=== PATIENT | male | born 1955 | race Caucasian/White ===

== ENCOUNTER → 2017-11-06 16:40 | Outpatient (CLI) | payer BC, SELFPAY ==
[2017-11-06 17:12] LABS: Basophils % 0.6 % (0.1-2.0); Eosinophils # 0.1 K/mm3 (0.0-0.4); Eosinophils % 1.9 % (0.1-12.0); Hematocrit 48.2 % (42.0-52.0); Hemoglobin 16.2 g/dL (14.1-18.0); Lymphocytes # 1.4 K/mm3 (0.7-4.5); Lymphocytes % 22.6 K/mm3 (10-50); Mean Corpuscular HGB Conc 33.5 g/dL (31.8-35.4); Mean Corpuscular Volume 89.4 fl (80-94); Mean Platelet Volume 7.7 fl (7.4-10.4); Monocytes # 0.4 K/mm3 (0.1-1.0); Monocytes % 6.4 % (1.7-9.3); Neutrophils # 4.4 K/mm3 (1.8-7.8); Neutrophils % 68.5 % (37.0-80.0); Platelet Count 196 K/mm3 (142-424); Red Blood Count 5.39 M/mm3 (4.60-6.20); Red Cell Distribution Width 13.2 % (11.5-17.5); White Blood Count 6.4 K/mm3 (4.8-10.8)
[2017-11-06 19:24] LABS: Alanine Aminotransferase 27 U/L (12-78); Albumin Level 3.7 gm/dL (3.4-5.0); Albumin/Globulin Ratio 1.1 (1.1-1.8); Alkaline Phosphatase 65 U/L (46-116); Anion Gap 14.3 mEq/L (5-15); Aspartate Amino Transferase 20 U/L (15-37); Bilirubin,Total 0.4 mg/dL (0.2-1.0); Blood Urea Nitrogen 24 mg/dL (7-18); Carbon Dioxide 25 mmol/L (21.0-32.0); Chloride 105 mmol/L (98-107); Creatinine,Serum 0.78 mg/dL (0.70-1.30); Estimated Glomerular Filt Rate 100 ml/min (>60); GFR (African American) 121 ML/MIN (>60); Globulin 3.3 gm/dl (1.3-3.2); Glucose 122 mg/dL (74-106); Potassium 4.3 mmoL/L (3.5-5.1); Sodium 140 mmol/L (136-145)
[2017-11-09 04:23] LABS: CEA 2.5 ng/mL (0.0-4.7)
== END ==
PROVIDERS: Visit Provider Internal Medicine
DX: C18.9 Malignant neoplasm of colon, unspecified (principal)
CPT/HCPCS: 36415; 80053; 82378; 85025

== ENCOUNTER → 2017-11-07 10:20 | Outpatient (CLI) | payer BC, SELFPAY ==
--- NOTE | 2017-11-07 10:25 | CT_ITS ---
CT abdomen pelvis w con CLINICAL INDICATION: Follow-up: Cancer, evaluate for metastasis ITS.REASON: COLON CA ORDERING PHYSICIAN: Marcus Sims MD PATIENT AGE: 62 years COMPARISON: 04/23/2017 TECHNIQUE: Axial images obtained with sagittal and coronal reformats. All CT scans at the facility use one or more dose reduction, viz: automated exposure control; ma/kV adjustment per patient size (including targeted exams where dose is matched to indication; i.e. head); or iterative reconstruction technique. PROCEDURE: Oral Contrast: Redicat IV Contrast: 75 mL's of Isovue-370 performed in conjunction with the chest CT. FINDINGS: There is a tiny isodensity in the right hepatic lobe inferiorly and laterally at 2 to 3 mm unchanged. Liver is otherwise unremarkable. The spleen, adrenal glands, pancreas, gallbladder, and kidneys have an unremarkable appearance. No evidence of overt peritoneal adenopathy. No intra-abdominal mass or adenopathy. No evidence of appendicitis intestinal obstruction or free air or diverticulitis. There is mild amount retained colonic feces. Postsurgical changes are present at the rectosigmoid junction with no obvious soft tissue mass in this region. The jejunum appears thickened. While this may be due to nondistention, enteritis is also a consideration. Please correlate clinically. No acute bony anomalies. No pelvic mass abnormal fluid collection or focal inflammatory change. Prostate calcifications are noted. IMPRESSION: 1. No convincing evidence of metastatic disease. 2. Thickening versus nondistention of the jejunum. Enteritis is a consideration
--- NOTE | 2017-11-07 10:25 | CT_ITS ---
CT chest w con HISTORY: Follow-up cancer of the colon, evaluate for metastasis ITS.REASON: COLON CA ORDERING PHYSICIAN: Marcus Sims MD PATIENT AGE: 62 years TECHNIQUE: Axial images obtained following the administration of 75 mL of Isovue 370 . Sagittal, and coronal reformatted images are also generated and reviewed. All CT scans at the facility use one or more dose reduction, viz: automated exposure control; ma/kV adjustment per patient size (including targeted exams where dose is matched to indication; i.e. head); or iterative reconstruction technique. COMPARISON: 04/23/2012 FINDINGS: There are mildly enlarged mediastinal lymph nodes once again noted overall not significantly changed. Normal heart size. No evidence of pericardial effusion. No hilar adenopathy. 3 mm subpleural nodular opacity right upper lobe unchanged. There are 2 nodular densities in the right middle lobe at 2 and 3 mm unchanged a 6 mm nodules present in the superior segment of the right lower lobe stable since 06/26/2016 and may represent a granuloma and may contain a small central focus of calcium. No new nodules. No lobar consolidation or collapse. No effusion. No bony destructive process. IMPRESSION: 1. Overall stable CT appearance of the chest. 2. No change mild mediastinal adenopathy 3. No convincing evidence of metastatic disease
== END ==
PROVIDERS: Family Provider Internal Medicine Adolescent Medicine; PCP Internal Medicine Adolescent Medicine; Visit Provider Internal Medicine
DX: C18.9 Malignant neoplasm of colon, unspecified (principal); Z03.89 Encounter for observation for other suspected diseases and conditions ruled out
CPT/HCPCS: 71260; 74177; Q9967

== ENCOUNTER → 2018-01-09 12:37 | Outpatient (CLI) | payer BC, SELFPAY ==
[2018-01-09 12:54] LABS: Basophils # 0.1 K/mm3 (0-0.2); Basophils % 0.8 % (0.1-2.0); Eosinophils # 0.1 K/mm3 (0.0-0.4); Eosinophils % 2.1 % (0.1-12.0); Hematocrit 51.4 % (42.0-52.0); Hemoglobin 16.3 g/dL (14.1-18.0); Lymphocytes # 1.2 K/mm3 (0.7-4.5); Lymphocytes % 20.5 K/mm3 (10-50); Mean Corpuscular HGB Conc 31.6 g/dL (31.8-35.4); Mean Corpuscular Hemoglobin 28.2 pg (27.0-31.2); Mean Corpuscular Volume 89.1 fl (80-94); Mean Platelet Volume 7.3 fl (7.4-10.4); Monocytes # 0.4 K/mm3 (0.1-1.0); Monocytes % 6.8 % (1.7-9.3); Neutrophils % 69.7 % (37.0-80.0); Platelet Count 253 K/mm3 (142-424); Red Blood Count 5.78 M/mm3 (4.60-6.20); Red Cell Distribution Width 13.2 % (11.5-17.5); White Blood Count 5.7 K/mm3 (4.8-10.8)
[2018-01-09 13:33] LABS: Alanine Aminotransferase 25 U/L (12-78); Albumin Level 3.6 gm/dL (3.4-5.0); Alkaline Phosphatase 73 U/L (46-116); Anion Gap 11.5 mEq/L (5-15); Aspartate Amino Transferase 20 U/L (15-37); Bilirubin,Total 0.3 mg/dL (0.2-1.0); Blood Urea Nitrogen 22 mg/dL (7-18); Calcium 8.9 mg/dL (8.5-10.1); Carbon Dioxide 27 mmol/L (21.0-32.0); Chloride 105 mmol/L (98-107); Chol/HDL Ratio 4.4 (1-3.5); Cholesterol 193 mg/dL (140-200); Creatinine,Serum 0.89 mg/dL (0.70-1.30); Estimated Glomerular Filt Rate 86 ml/min (>60); Free Thyroxine Index 2.7 ug/dL (5.93-13.13); GFR (African American) 104 ML/MIN (>60); Globulin 3.6 gm/dl (1.3-3.2); Glucose 108 mg/dL (74-106); HDL Cholesterol 44 mg/dL (27-67); LDL Cholesterol 126 mg/dL (0-130); Potassium 4.5 mmoL/L (3.5-5.1); Sodium 139 mmol/L (136-145); T4 (Thyroxine) 7.8 ug/dl (4.7-13.3); Thyroid Stimulating Hormone 1.34 uIU/ml (0.358-3.740); Total Protein,Serum 7.2 gm/dL (6.4-8.2); Triglycerides 114 mg/dL (30-200); Triiodothryronine (T3) Uptake 34 % (31-39); VLDL Cholesterol 23 mg/dL (0-40)
[2018-01-10 08:21] LABS: Vitamin B12 423 pg/mL (232-1245)
[2018-01-10 18:05] LABS: Rapid Plasma Reagin Ab Titer Non Reactive (NonRea<1:1); Vitamin D 25 Hydroxy 19.5 ng/mL (30.0-100.0)
== END ==
PROVIDERS: Visit Provider Internal Medicine Adolescent Medicine
DX: Z00.00 Encounter for general adult medical examination without abnormal findings (principal); G60.9 Hereditary and idiopathic neuropathy, unspecified
CPT/HCPCS: 36415; 80053; 80061; 82607; 82652; 84436; 84443; 84479; 85025; 86592

== ENCOUNTER → 2018-05-25 10:05 | Outpatient (CLI) | payer MEDICARE, BC, SELFPAY ==
[2018-05-25 10:27] LABS: Basophils # 0.1 K/mm3 (0-0.2); Basophils % 0.6 % (0.1-2.0); Eosinophils # 0.1 K/mm3 (0.0-0.4); Eosinophils % 1.4 % (0.1-12.0); Hematocrit 51.7 % (42.0-52.0); Hemoglobin 16.6 g/dL (14.1-18.0); Lymphocytes # 1.3 K/mm3 (0.7-4.5); Lymphocytes % 13.2 % (10-50); Mean Corpuscular HGB Conc 32.1 g/dL (31.8-35.4); Mean Corpuscular Hemoglobin 28.8 pg (27.0-31.2); Mean Corpuscular Volume 89.7 fl (80-94); Mean Platelet Volume 7.6 fl (7.4-10.4); Monocytes # 0.6 K/mm3 (0.1-1.0); Monocytes % 6.1 % (1.7-9.3); Neutrophils # 7.5 K/mm3 (1.8-7.8); Neutrophils % 78.8 % (37.0-80.0); Platelet Count 168 K/mm3 (142-424); Red Blood Count 5.76 M/mm3 (4.60-6.20); Red Cell Distribution Width 13.9 % (11.5-17.5); White Blood Count 9.5 K/mm3 (4.8-10.8)
[2018-05-25 11:09] LABS: Alanine Aminotransferase 32 U/L (12-78); Albumin Level 3.7 gm/dL (3.4-5.0); Albumin/Globulin Ratio 1.1 (1.1-1.8); Alkaline Phosphatase 62 U/L (46-116); Anion Gap 13.8 mEq/L (5-15); Aspartate Amino Transferase 21 U/L (15-37); Bilirubin,Total 0.5 mg/dL (0.2-1.0); Blood Urea Nitrogen 21 mg/dL (7-18); Calcium 8.7 mg/dL (8.5-10.1); Carbon Dioxide 27 mmol/L (21.0-32.0); Chloride 104 mmol/L (98-107); Creatinine,Serum 0.86 mg/dL (0.70-1.30); Estimated Glomerular Filt Rate 89 ml/min (>60); GFR (African American) 108 ML/MIN (>60); Globulin 3.3 gm/dl (1.3-3.2); Glucose 108 mg/dL (74-106); Potassium 4.8 mmoL/L (3.5-5.1); Sodium 140 mmol/L (136-145)
[2018-05-26 09:59] LABS: CEA 2.7 ng/mL (0.0-4.7)
== END ==
PROVIDERS: Visit Provider Nurse Practitioner
DX: C19 Malignant neoplasm of rectosigmoid junction (principal); R91.8 Other nonspecific abnormal finding of lung field; D37.6 Neoplasm of uncertain behavior of liver, gallbladder and bile ducts
CPT/HCPCS: 36415; 80053; 82378; 85025

== ENCOUNTER → 2018-08-26 12:44 | Outpatient (CLI) | payer MEDICARE, BC, SELFPAY ==
[2018-08-26 14:39] LABS: Blood Urea Nitrogen 20 mg/dL (7-18); Creatinine,Serum 0.94 mg/dL (0.70-1.30); Estimated Glomerular Filt Rate 81 ml/min (>60); GFR (African American) 97 ML/MIN (>60)
== END ==
PROVIDERS: Visit Provider Nurse Practitioner
DX: C18.9 Malignant neoplasm of colon, unspecified (principal); R91.8 Other nonspecific abnormal finding of lung field; R59.0 Localized enlarged lymph nodes
CPT/HCPCS: 36415; 82565; 84520

== ENCOUNTER → 2018-08-28 08:51 | Outpatient (CLI) | payer MEDICARE, BC, SELFPAY ==
--- NOTE | 2018-08-28 08:54 | CT_ITS ---
CT chest w con HISTORY: Follow-up pulmonary nodules and mediastinal adenopathy ITS.REASON: LUNG NODULES ORDERING PHYSICIAN: Lacey Schuster PATIENT AGE: 63 years COMPARISON: 05/08/2018 TECHNIQUE: Axial images obtained following the administration of 75 mL of Optiray 350. Sagittal, and coronal reformatted images are also generated and reviewed. All CT scans at the facility use one or more dose reduction, viz: automated exposure control, ma/kV adjustment per patient size (including targeted exams where dose is matched to indication, i.e. head), or iterative reconstruction technique. FINDINGS: Mildly prominent right paratracheal lymph node once again noted at 2 x 1.4 cm not significant change. Adenopathy noted along the right lower paratracheal region not significant changed. No aortic aneurysm, dissection, or central pulmonary embolus. There is a 6 mm noncalcified nodule in the right lower lobe unchanged. There are scattered calcified granulomas. There are dependent changes in the lung bases. Ill-defined parenchymal opacity is present in the left lung base laterally may be due to an area of scarring. Scarring noted in the superior segment of the left lower lobe. No new nodules are evident. No effusions or lobar consolidation. Upper abdominal images show small hiatal hernia. There are mild degenerative changes in the thoracic spine. IMPRESSION: 1. Overall stable CT appearance of the chest with mild mediastinal adenopathy. 2. No change 6 mm nodule in the right lobe
== END ==
PROVIDERS: PCP Internal Medicine Adolescent Medicine; Visit Provider Nurse Practitioner
DX: R91.1 Solitary pulmonary nodule (principal); C18.9 Malignant neoplasm of colon, unspecified; R59.0 Localized enlarged lymph nodes
CPT/HCPCS: 71260

== ENCOUNTER 2018-09-22 11:00 | Outpatient (RCR) | payer MEDICARE, BC, SELFPAY ==
--- NOTE | 2018-09-09 12:08 | [facility].PTOPEV ---
PT Outpatient Evaluation Rehab PT Outpatient Evaluation Start: 09/09/18 10:58 Freq: Status: Active Protocol: Document 09/09/18 11:50 LEXRITCHIE (Rec: 09/09/18 12:08 DOMINIC [id number]) Electronically Signed By Deangelo Aaron, PT 09/09/18 11:50 Outpatient Therapy Subjective History Subjective History Pt is s a 63 year old male presenting to outpatient PT with reports of L shoulder pain and bilateral LE numbness (feet only). LE symptoms started 11/2011 after treatment for colorectal cancer. L shoulder pain started 05/2018 of insidous onset. 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 He specificially reports pain wit reaching behind back when dressing. Most recent diagnostics negative for L shoulder. Referral includes PMH of colorectal cancer, mediastinal lymphadenopathy, lung nodules and liver lesion. Chief Complaint Pain Paresthesia Symptom Type Ache Numbness Symptoms Relieved By Rest/Positioning Symptoms Aggravated By Lifting Prior Functional Limitations None Current Functional Limitations Reaching Lifting Housework Dressing Level of pain today (0-10) 0 Pain scale - at its best (0-10) 0 Pain scale - at its worst (0-10) 5 Shoulder/Elbow Eval Shoulder Objective Measurements Palpation Tenderness tenderness shoulder exam standard left Shoulder Palpation Overall Comment 2/4 Posture Scapula Posture Sitting Position (L) Protracted (R) Protracted Scapular Posture Standing Position (L) Protracted (R) Protracted Shoulder ROM Bilateral full ROM shoulder exam standard left Shoulder MMT Left Anterior Deltoid Strength Grade 4 Good Shoulder Abduction Strength Grade 5 Normal Shoulder Extension Strength Grade 5 Normal Shoulder External Rotation Strength 4- Good- Grade Shoulder Internal Rotation Strength 4 Good Grade Shoulder Special Tests impingement sign present shoulder exam left standard Shoulder Drop Arm Test Negative Left Shoulder Cross-Over Impingement
== END 2018-09-22 11:05 | disposition home or self-care (01) ==
LOC: PT 11:00
PROVIDERS: Visit Provider Nurse Practitioner
DX: M25.512 Pain in left shoulder
CPT/HCPCS: 97110; 97140; 97163

== ENCOUNTER → 2018-11-23 12:00 | Outpatient (CLI) | payer MEDICARE, BC, SELFPAY ==
[2018-11-23 12:37] LABS: Basophils # 0.1 K/mm3 (0-0.2); Eosinophils # 0.1 K/mm3 (0.0-0.4); Eosinophils % 1.7 % (0.1-12.0); Hematocrit 50.9 % (42.0-52.0); Hemoglobin 17.1 g/dL (14.1-18.0); Lymphocytes # 1.5 K/mm3 (0.7-4.5); Lymphocytes % 26.4 % (10-50); Mean Corpuscular HGB Conc 33.5 g/dL (31.8-35.4); Mean Corpuscular Hemoglobin 29.6 pg (27.0-31.2); Mean Corpuscular Volume 88.4 fl (80-94); Mean Platelet Volume 7.8 fl (7.4-10.4); Monocytes # 0.4 K/mm3 (0.1-1.0); Monocytes % 6.4 % (1.7-9.3); Neutrophils # 3.7 K/mm3 (1.8-7.8); Neutrophils % 64.5 % (37.0-80.0); Platelet Count 132 K/mm3 (142-424); Red Blood Count 5.76 M/mm3 (4.60-6.20); Red Cell Distribution Width 12.8 % (11.5-17.5); White Blood Count 5.7 K/mm3 (4.8-10.8)
[2018-11-23 13:36] LABS: Alanine Aminotransferase 25 U/L (12-78); Albumin Level 3.8 gm/dL (3.4-5.0); Albumin/Globulin Ratio 1.1 (1.1-1.8); Alkaline Phosphatase 73 U/L (46-116); Anion Gap 15.6 mEq/L (5-15); Aspartate Amino Transferase 14 U/L (15-37); Bilirubin,Total 0.5 mg/dL (0.2-1.0); Blood Urea Nitrogen 19 mg/dL (7-18); Calcium 8.6 mg/dL (8.5-10.1); Carbon Dioxide 25 mmol/L (21.0-32.0); Chloride 103 mmol/L (98-107); Creatinine,Serum 1.04 mg/dL (0.70-1.30); Estimated Glomerular Filt Rate 72 ml/min (>60); GFR (African American) 87 ML/MIN (>60); Globulin 3.4 gm/dl (1.3-3.2); Glucose 97 mg/dL (74-106); Potassium 4.6 mmoL/L (3.5-5.1); Sodium 139 mmol/L (136-145); Total Protein,Serum 7.2 gm/dL (6.4-8.2)
[2018-11-24 08:51] LABS: CEA 2.6 ng/mL (0.0-4.7)
== END ==
PROVIDERS: PCP Internal Medicine Adolescent Medicine; Visit Provider Nurse Practitioner
DX: C19 Malignant neoplasm of rectosigmoid junction (principal)
CPT/HCPCS: 80053; 82378; 85025

== ENCOUNTER → 2018-11-27 08:40 | Outpatient (CLI) | payer MEDICARE, BC, SELFPAY ==
--- NOTE | 2018-11-27 08:42 | CT_ITS ---
CT abdomen pelvis w con INDICATION: ITS.REASON: COLON CANCER follow-up ORDERING PHYSICIAN: Lacey Schuster APRN PATIENT AGE: 63 years COMPARISON: CT abdomen pelvis on May 2018 & November 2017 PROCEDURE: Oral Contrast: Linwood-CAT enteric contrast IV Contrast: 75 cc Optiray 350 TECHNIQUE: Axial images obtained with sagittal and coronal reformats. All CT scans at the facility use one or more dose reduction, viz: automated exposure control, ma/kV adjustment per patient size (including targeted exams where dose is matched to indication, i.e. head), or iterative reconstruction technique. FINDINGS: Lung bases stable is minor scarring most evident towards the posterior sulcus on right. Unchanged. Abdomen: Liver. No evidence of metastatic disease. Spleen pancreas, & adrenals unremarkable. Gallbladder. No prominent findings. A question, suspect minimal sludge or minimal stone towards neck of the gallbladder, axial image 36. 35. Subtle density here. However this Less convincing on the coronal view however....- Otherwise gallbladder unremarkable. Normal size. No wall thickening or inflammation. tract. Kidneys appear satisfactory. No calculi nor obstruction ureters unremarkable. Pelvis. Borderline to mild wall thickness urinary bladder . Moderate size prostate 5.2 cm transverse with central calcification. GI TRACT. Stomach duodenal loop unremarkable Small Bowel normal to upper normal caliber with slight increase fluid particularly at the distal small bowel. Slow progression of oral contrast has not yet reached the distal ileum 90 minutes as it typically does. It could reflect a partial ileus although I see no other findings to contribute to such. There is no focal inflammatory change. Large bowel. Generous slight increase stool throughout colon right, transverse colon and proximal descending colon. Mildly redundant transverse colon. Anastomosis at rectosigmoid. Noted. Unchanged. No significant findings. No pelvic nor retroperitoneal nor mesenteric adenopathy. Osseous structures. No metastatic disease evident. Degenerative disc changes L2/3. Facet hypertrophy lower L-spine. Small hypoechoic focus right iliac bone adjacent SI joint unchanged. IMPRESSION: .. No evidence of metastatic disease. Stable appearance Anastomosis rectosigmoid junction by CT survey No significant retroperitoneal or pelvic adenopathy Possible Minor observations.: .Question minimal sludge or early stone towards neck the left gallbladder... .Note upper normal fluid distal small bowel. Upper normal caliber distal small bowel.. .Slow progression of oral contrast through the small bowel.... these findings May reflect mild ileus, or secondary to the prominent solid stool right and transverse colon..
--- NOTE | 2018-11-27 09:09 | CT_ITS ---
CT chest w con Ordering Physician: Lacey Schuster APRN Patient Age: 63 years: Male HISTORY: ITS.REASON: COLON CANCER TECHNIQUE: COMPARISON : FINDINGS . Scattered mildly prominent paratracheal nodes again seen. These appear basically stable if not acute incrementally smaller. One of the largest nodes is seen at the superior right paratracheal region measuring up to 19 mm and previously measured 23 mm using the same points for measurement. Other 14 mm node seen more inferior at the right paratracheal region. An stable generous flat 23 mm millimeter node AP window. Axial slice 33. Small noted right rajinder measuring up to 11-mm appear stable. Scattered moderate nodes along the superior margin of right & left bronchus. ... Overall the nodes appear fairly stable a few measuring incrementally smaller 11 mm the visualized appear overall stable. Pulmonary arteries appears satisfactory. Well-visualized. Aorta unremarkable. Heart appears normal. No pericardial effusion. Upper normal wall thickness distal esophagus. Lungs appears stable with no significant change and no significant masses..: Small nodule axial image 48 towards superior segment RLL measures less than 6 mm.. Stable With Possible minor central calcification possible granuloma .. Periphery of RUL on axial image 31-stable small less than 3 mm nodule. Probable granuloma given its density for size. A larger 5 mm granuloma seen on axial image 28 RUL. There is some stable peripheral scarring at the right lower lobe posteriorly. No new findings of concern. Chest wall appears stable... Mild degenerative changes T-spine. No metastatic disease to the ribs or chest wall evident. IMPRESSION 1. Overall stable CT of the chest. Minimal mediastinal adenopathy with no significant change since August 2018 nor May 2018.. Lung medina appear stable. Small 6 mm nodule present noted towards the RLL-unchanged. May reflect granuloma given its central density, instability. \ Other small scattered calcified granuloma seen elsewhere bilateral sent for
== END ==
PROVIDERS: PCP Internal Medicine Adolescent Medicine; Visit Provider Nurse Practitioner
DX: C18.9 Malignant neoplasm of colon, unspecified (principal)
CPT/HCPCS: 71260; 74177; Q9967

== ENCOUNTER → 2019-02-18 10:14 | Outpatient (CLI) | payer MEDICARE, BC, SELFPAY ==
[2019-02-18 10:21] LABS: MANUAL DIFFERENTIAL MANUAL DIFFERENTIAL (MANUAL DIFF)
[2019-02-18 12:07] LABS: Basophils # 0.1 K/mm3 (0-0.2); Basophils % 0.8 % (0.1-2.0); Eosinophils # 0.1 K/mm3 (0.0-0.4); Eosinophils % 1.6 % (0.1-12.0); Hematocrit 48.9 % (42.0-52.0); Lymphocytes # 1.3 K/mm3 (0.7-4.5); Lymphocytes % 19.5 % (10-50); Mean Corpuscular HGB Conc 32.7 g/dL (31.8-35.4); Mean Corpuscular Hemoglobin 29.9 pg (27.0-31.2); Mean Corpuscular Volume 91.4 fl (80-94); Monocytes # 0.6 K/mm3 (0.1-1.0); Monocytes % 8.4 % (1.7-9.3); Neutrophils # 4.6 K/mm3 (1.8-7.8); Neutrophils % 69.7 % (37.0-80.0); Platelet Count 189 K/mm3 (142-424); Red Blood Count 5.35 M/mm3 (4.60-6.20); Red Cell Distribution Width 13.8 % (11.5-17.5); White Blood Count 6.5 K/mm3 (4.8-10.8)
[2019-02-18 12:14] LABS: Eosinophils % 1 % (0-3); Lymphocytes % 23 % (10-50); Monocytes % 5 % (2-9); Neutrophils % 68 % (42-76); Platelet Estimate Normal; RBC Morphology Normal; Total Cells Counted 100
== END ==
PROVIDERS: Visit Provider Nurse Practitioner
DX: D69.6 Thrombocytopenia, unspecified (principal)
CPT/HCPCS: 36415; 85007; 85014; 85018; 85048; 85049

== ENCOUNTER → 2019-06-16 11:25 | Outpatient (CLI) | payer MEDICARE, BC, SELFPAY ==
[2019-06-16 12:17] LABS: Basophils # 0.1 K/mm3 (0-0.2); Basophils % 0.8 % (0.1-2.0); Eosinophils # 0.1 K/mm3 (0.0-0.4); Eosinophils % 1.9 % (0.1-12.0); Hematocrit 52.5 % (42.0-52.0); Hemoglobin 16.8 g/dL (14.1-18.0); Lymphocytes # 1.3 K/mm3 (0.7-4.5); Lymphocytes % 17.8 % (10-50); Mean Corpuscular HGB Conc 32.1 g/dL (31.8-35.4); Mean Corpuscular Hemoglobin 28.2 pg (27.0-31.2); Mean Corpuscular Volume 87.9 fl (80-94); Monocytes # 0.4 K/mm3 (0.1-1.0); Monocytes % 5.9 % (1.7-9.3); Neutrophils # 5.5 K/mm3 (1.8-7.8); Neutrophils % 73.6 % (37.0-80.0); Platelet Count 209 K/mm3 (142-424); Red Blood Count 5.97 M/mm3 (4.60-6.20); Red Cell Distribution Width 13.6 % (11.5-17.5); White Blood Count 7.5 K/mm3 (4.8-10.8)
[2019-06-16 13:26] LABS: Alanine Aminotransferase 21 U/L (12-78); Albumin Level 3.7 gm/dL (3.4-5.0); Alkaline Phosphatase 78 U/L (46-116); Aspartate Amino Transferase 16 U/L (15-37); Bilirubin,Total 0.3 mg/dL (0.2-1.0); Blood Urea Nitrogen 19 mg/dL (7-18); Carbon Dioxide 25 mmol/L (21.0-32.0); Chloride 104 mmol/L (98-107); Creatinine,Serum 0.82 mg/dL (0.70-1.30); Estimated Glomerular Filt Rate 94 ml/min (>60); GFR (African American) 114 ML/MIN (>60); Globulin 3.7 gm/dl (1.3-3.2); Glucose 95 mg/dL (74-106); Sodium 140 mmol/L (136-145); Total Protein,Serum 7.4 gm/dL (6.4-8.2)
[2019-06-17 13:18] LABS: CEA 2.4 ng/mL (0.0-4.7)
== END ==
PROVIDERS: Visit Provider Nurse Practitioner
DX: C19 Malignant neoplasm of rectosigmoid junction (principal)
CPT/HCPCS: 36415; 80053; 82378; 85025

== ENCOUNTER → 2019-07-01 14:16 | Outpatient (CLI) | payer MEDICARE, BC, SELFPAY ==
[2019-07-01 15:44] LABS: Blood Urea Nitrogen 20 mg/dL (7-18); Creatinine,Serum 0.86 mg/dL (0.70-1.30); Estimated Glomerular Filt Rate 89 ml/min (>60); GFR (African American) 108 ML/MIN (>60)
== END ==
PROVIDERS: Visit Provider Internal Medicine Medical Oncology
DX: C18.9 Malignant neoplasm of colon, unspecified (principal)
CPT/HCPCS: 36415; 82565; 84520

== ENCOUNTER → 2019-07-06 10:14 | Outpatient (CLI) | payer MEDICARE, BC, SELFPAY ==
--- NOTE | 2019-07-06 10:17 | CT_ITS ---
PROCEDURE: CT CHEST W CON CLINCAL INDICATION: COLON CANCER COLON CANCER follow-up pulmonary nodule and mediastinal adenopathy COMPARISON: CHESTW CT chest w con from 08/28/2018 TECHNIQUE: IV Contrast: 75ml Optiray 350 Axial images obtained with sagittal and coronal reformats. All CT scans at the facility use one or more dose reduction, viz: automated exposure control, ma/kV adjustment per patient size (including targeted exams where dose is matched to indication, i.e. head), or iterative reconstruction technique. FINDINGS: HEART,AORTA,PULMONARY ARTERIES cardiac size is normal. There is mild aortic tortuosity. MEDIASTINAL AND HILAR STRUCTURES: There multiple slightly enlarged right para tracheal lymph nodes which are stable. There are couple normal size nodes in the precarinal space of the superior mediastinum. . LUNGS: The small 6 mm noncalcified nodule is stable unchanged in size right lower lobe subpleural location. There are no new pulmonary nodules seen. PLEURAL SPACES: No significant effusion. No evidence of pneumothorax. BONY STRUCTURES: There are mild multilevel degenerate changes of the thoracic spine, no definite lytic or blastic lesions are seen in the bony thorax. LYMPH NODES: No enlarged lymph nodes evident other than the mediastinal lymph nodes are radial mentioned above. UPPER ABDOMEN: Unremarkable. ADDITIONAL FINDINGS: No other significant abnormalities. IMPRESSION: Basically stable exam with stable tiny noncalcified nodule right lower lobe and moderate size multiple right paratracheal and superior mediastinal lymph nodes. Dictated by: Dr. Woo Cline MD 07/06/2019 12:[address] Woo Cline MD in [facility] 07/06/2019 12:13
--- NOTE | 2019-07-06 10:17 | CT_ITS ---
PROCEDURE: CT ABDOMEN PELVIS W CON CLINICAL INDICATION: COLON CANCER COMPARISON: [facility] abdomen pelvis w con from 05/26/2018 TECHNIQUE: IV Contrast: 75ML OPTIRAY 350 Oral Contrast 20ml Gastroview Axial images obtained with sagittal and coronal reformats. All CT scans at the facility use one or more dose reduction, viz: automated exposure control, ma/kV adjustment per patient size (including targeted exams where dose is matched to indication, i.e. head), or iterative reconstruction technique. FINDINGS: Lower thorax: No acute finding ABDOMEN: Liver: No masses or biliary dilatation. Gallbladder: Nondistended. No radio opaque stones. Pancreas: No masses or peripancreatic fluid collections. Spleen: unremarkable Adrenals: unremarkable Kidneys/ureters: The kidneys are normal in size and show symmetrical function both appearing normal. ABDOMEN & PELVIS: Stomach bowel: The stomach appears normal. There are mildly dilated fluid-filled loops of small bowel left mid abdomen. There is no transition zone. There is moderate scattered stool and gas in the ascending and transverse colon and sigmoid colon. The sigmoid colon is somewhat redundant containing a large amount stool. There are surgical clips at the rectosigmoid junction and there is no definite evidence of local tumor recurrence. There is no abnormal bowel wall thickening. Peritoneum: No abnormal fluid collections. No obvious inflammatory changes. No free air. Lymph nodes: No enlarged lymph nodes apparent. Vasculature: No evidence of abdominal aortic aneurysm. No retroperitoneal hemorrhage evident. Bones: The lumbar spine and bony pelvis appear grossly normal with no lytic or blastic lesions seen. PELVIS: Reproductive: unremarkable Bladder: The bladder appears grossly normal, the prostate is normal in size. Appendix: The appendix is not definitely identified but there are no pericecal inflammatory changes. IMPRESSION: Postsurgical anastomosis rectosigmoid junction, large amount stool sigmoid colon, no definite evidence of acute intra-abdominal or pelvic pathology. Dictated by: Dr. Woo Cline MD 07/06/2019 12:[address] Woo Cline MD in [facility] 07/06/2019 12:23
== END ==
PROVIDERS: PCP Internal Medicine Adolescent Medicine; Visit Provider Internal Medicine Medical Oncology
DX: C18.9 Malignant neoplasm of colon, unspecified (principal)
CPT/HCPCS: 71260; 74177; Q9967

== ENCOUNTER → 2019-12-22 07:15 | Outpatient (CLI) | payer MEDICARE, BC, SELFPAY ==
[2019-12-22 08:34] LABS: Basophils # 0.1 K/mm3 (0-0.2); Basophils % 1.2 % (0.1-2.0); Eosinophils # 0.2 K/mm3 (0.0-0.4); Eosinophils % 2.8 % (0.1-12.0); Hemoglobin 17.2 g/dL (14.1-18.0); Lymphocytes # 1.2 K/mm3 (0.7-4.5); Lymphocytes % 18.9 % (10-50); Mean Corpuscular HGB Conc 33.7 g/dL (31.8-35.4); Mean Corpuscular Hemoglobin 29.9 pg (27.0-31.2); Mean Corpuscular Volume 88.6 fl (80-94); Mean Platelet Volume 8.4 fl (7.4-10.4); Monocytes # 0.6 K/mm3 (0.1-1.0); Monocytes % 8.7 % (1.7-9.3); Neutrophils # 4.4 K/mm3 (1.8-7.8); Neutrophils % 68.5 % (37.0-80.0); Platelet Count 184 K/mm3 (142-424); Red Blood Count 5.76 M/mm3 (4.60-6.20); Red Cell Distribution Width 14.6 % (11.5-17.5); White Blood Count 6.4 K/mm3 (4.8-10.8)
[2019-12-22 08:55] LABS: Chloride 104 mmol/L (98-107); Sodium 139 mmol/L (136-145)
[2019-12-22 08:56] LABS: Potassium 4.9 mmoL/L (3.5-5.1)
[2019-12-22 08:58] LABS: Alanine Aminotransferase 20 U/L (12-78); Albumin Level 4.1 g/dl (3.5-5.0); Albumin/Globulin Ratio 1.5 (1.1-1.8); Alkaline Phosphatase 68 U/L (38-126); Anion Gap 10.9 mEq/L (5-15); Aspartate Amino Transferase 30 U/L (17-59); Bilirubin,Total 0.5 mg/dl (0.2-1.3); Blood Urea Nitrogen 22 mg/dl (9-20); Carbon Dioxide 29 mmol/L (22.0-30.0); Estimated Glomerular Filt Rate 84 ml/min (>60); GFR (African American) 102 ML/MIN (>60); Globulin 2.7 g/dL (1.3-3.2); Total Protein,Serum 6.8 g/dl (6.3-8.2)
[2019-12-22 08:59] LABS: Glucose 127 mg/dl (74-100)
== END ==
PROVIDERS: Visit Provider Internal Medicine Medical Oncology
DX: C18.9 Malignant neoplasm of colon, unspecified (principal)
CPT/HCPCS: 36415; 80053; 85025

== ENCOUNTER → 2020-06-05 09:57 | Outpatient (CLI) | payer MEDICARE, BC, SELFPAY ==
[2020-06-05 11:26] LABS: Coronavirus 19 IgG Antibody Negative (Negative); Coronavirus 19 IgM Antibody Negative (Negative)
== END ==
PROVIDERS: Visit Provider Surgery
DX: Z01.818 Encounter for other preprocedural examination (principal); Z12.11 Encounter for screening for malignant neoplasm of colon
CPT/HCPCS: 36415; 86328

== ENCOUNTER 2020-06-06 07:19 | Day surgery (SDC) | payer MEDICARE, BC, SELFPAY ==
[2020-05-30 12:41] VITALS: BMI 32.1
[2020-06-06] VITALS (7 sets, daily range): BP systolic 83–147; BP diastolic 51–98; PULSE 61–89; RESP 18; TEMP 36.3–36.6; O2SAT 93–100
--- NOTE | 2020-06-06 07:45 | P.PCN_ITS ---
- Procedure: Date: 06/06/20 Patient Date of :: 1955 Procedure Performed:: Total colonoscopy to terminal ileum with polypectomy by snare and biopsy forceps with biopsies Indications:: Patient is here for colonoscopy for his history of his colon cancer. He had undergone low anterior resection by Dr. Hartman in October 2011 for a stage II a proximal colorectal carcinoma. He did have chemotherapy and radiation. He had several subsequent normal colonoscopies by Dr. Hartman. I performed Colonoscopy in June 2016 revealed 3 tubular adenomas. Follow-up colonoscopy done on 06/23/18 revealed a descending colon tubular adenoma. He is followed by oncology here at this time. It should be noted that the patient states that his colon cancer was noted on a 5-year colonoscopy as he had a normal screening colonoscopy in October 2006. Performing Provider:: Paul Patel MD Referring Provider:: None Sedation:: MAC sedation Procedure:: Patient was taken to endoscopy procedure room. He was positioned in a lateral decubitus position. Adequate intravenous sedation was achieved with anesthesia titration of propofol. Digital examination was performed which was unremarkable. Variable stiffness Olympus colonoscope was inserted via the anus. Was advanced to the cecum. Ileocecal valve and appendiceal orifice were clearly identified. Colonoscope was advanced into the terminal ileum which appeared grossly normal. Colonoscope was withdrawn through the colon with careful surveillance. In the transverse colon there was a sessile small a denomatous polyp removed with cold cutting snare with residual polyp removed with biopsy forceps. This appeared to be possibly previous polypectomy site with some scarring. Despite readvancement of the colonoscope to the cecum it was unclear if the snare portion of the polyp was ever retrieved. Colonoscope was withdrawn the remainder of the colon. In the descending colon there was a diminutive polyp removed with cold biopsy forceps. In the sigmoid colon there were a couple of diminutive polyps 1 of which was removed with cold cutting snare and 1 removed with cold biopsy forceps. There is an extremely small diminutive distal sigmoid polyp removed with cold biopsy forceps. There were findings consistent with with possible radiation proctocolitis and several biopsies were obtained. Anastomosis was identified at approximately 18 cm from the anal verge. Retroflexion within the rectum revealed no evidence of any pathologic internal hemorrhoids. Colonoscope was withdrawn. Findings:: Sessile polyp in transverse colon removed with snare and biopsy, possibly previous polypectomy (unclear if snare portion of specimen retrieved) Diminutive descending colon polyp removed with biopsy forceps Sigmoid colon polyp x2 1 removed with cold snare and 1 with biopsy forceps Distal sigmoid polyp, very tiny diminutive, removed with cold biopsy forceps Findings consistent with previous radiation proctocolitis, biopsies obtained Recommendations:: Likely repeat colonoscopy 2 years Complications:: None immediately apparent Estimated blood obtained (mL): 3
--- NOTE | 2020-06-06 07:51 | [facility].ANESCL ---
[facility] Anesthesia Checklist - Patient Identification Patient Identification: Arm Band - Structural Data Admitted From: Home Planned Operative Procedure/s: colonoscopy Consent for Planned Operative Procedure(s) Verified: Yes Verified Documents: Surgical Consent, History and Physical - Additional verifications Anesthesia Reactions: No - Airway Assessment C-Spine Mobility Assessed: Yes (mp2) TMJ Mobility Assessed: Yes Dentition: Good Dentition - Neurological Assessment Level of Consciousness: Awake, Alert - Anesthesia Plan Anesthesia Risk discussed: Yes Anesthesia Plan: Verified ASA Class: II Anesthesia Type: MAC [facility] History I have reviewed the patient's past medical history: Yes Medical History: Reports:: Cancer (colon) Denies:: Diabetes Mellitus Type 1, Diabetes Mellitus Type 2, Internal Pacemaker, Lung Disease, MRSA, Seizures *Have you ever received a pneumonia vaccine?: Yes *Have you received a flu vaccine this season?: Yes Anesthesia experience/problems:: nac Other Surgeries: Yes: Colonoscopy, Colon Resection, Other. No: Pacemaker Amputation: No Fractures: No - *Social History Last grade of school completed: Advanced degree Smoking Status: Never smoker Tobacco Type: smokeless tobacco Alcohol Intake: never Substance Use Type: denies use *Occupational Status:: retired Housing: house Household Members: spouse *Travel in the last 8 weeks: None Family Hx:: Cancer
== END 2020-06-06 09:20 | disposition home or self-care (01) ==
LOC: OUTP 07:20
PROVIDERS: PCP Internal Medicine Adolescent Medicine; Visit Provider Surgery
PROC: 0DJD8ZZ Inspection of Lower Intestinal Tract, Via Natural or Artificial Opening Endoscopic (ICD-10-PCS; CPT 45380; principal; 2020-06-06 08:30)
DX: Z12.11 Encounter for screening for malignant neoplasm of colon (principal); K63.5 Polyp of colon; Z85.030 Personal history of malignant carcinoid tumor of large intestine; Z90.49 Acquired absence of other specified parts of digestive tract; Z87.19 Personal history of other diseases of the digestive system; Z80.9 Family history of malignant neoplasm, unspecified; Z82.3 Family history of stroke
CPT/HCPCS: 45380; 45385; 88305; J2704

== ENCOUNTER → 2020-06-09 09:46 | Outpatient (CLI) | payer MEDICARE, BC, SELFPAY ==
[2020-06-09 10:20] LABS: Basophils % 0.8 % (0.1-2.0); Eosinophils # 0.1 K/mm3 (0.0-0.4); Eosinophils % 2.1 % (0.1-12.0); Hematocrit 54.5 % (42.0-52.0); Hemoglobin 17.7 g/dL (14.1-18.0); Lymphocytes # 1.1 K/mm3 (0.7-4.5); Lymphocytes % 25.5 % (10-50); Mean Corpuscular HGB Conc 32.5 g/dL (31.8-35.4); Mean Corpuscular Volume 92.3 fl (80-94); Mean Platelet Volume 8.4 fl (7.4-10.4); Monocytes # 0.3 K/mm3 (0.1-1.0); Monocytes % 7.9 % (1.7-9.3); Neutrophils # 2.7 K/mm3 (1.8-7.8); Neutrophils % 63.8 % (37.0-80.0); Platelet Count 170 K/mm3 (142-424); Red Blood Count 5.91 M/mm3 (4.60-6.20); Red Cell Distribution Width 13.5 % (11.5-17.5); White Blood Count 4.3 K/mm3 (4.8-10.8)
[2020-06-09 11:08] LABS: Chloride 107 mmol/L (98-107); Potassium 4.4 mmoL/L (3.5-5.1); Sodium 139 mmol/L (136-145)
[2020-06-09 11:11] LABS: Alanine Aminotransferase 28 U/L (12-78); Albumin/Globulin Ratio 1.4 (1.1-1.8); Alkaline Phosphatase 58 U/L (38-126); Aspartate Amino Transferase 32 U/L (17-59); Bilirubin,Total 0.5 mg/dl (0.2-1.3); Blood Urea Nitrogen 20 mg/dl (9-20); Carbon Dioxide 21 mmol/L (22.0-30.0); Estimated Glomerular Filt Rate 96 ml/min (>60); GFR (African American) 117 ML/MIN (>60); Globulin 2.9 g/dL (1.3-3.2); Total Protein,Serum 6.9 g/dl (6.3-8.2)
[2020-06-09 11:12] LABS: Anion Gap 15.4 mEq/L (5-15); Calcium 8.9 mg/dl (8.4-10.2); Glucose 150 mg/dl (74-100)
[2020-06-10 12:55] LABS: CEA 2.1 ng/mL (0.0-4.7)
== END ==
PROVIDERS: Visit Provider Internal Medicine Medical Oncology
DX: C18.9 Malignant neoplasm of colon, unspecified (principal)
CPT/HCPCS: 36415; 80053; 82378; 85025

== ENCOUNTER → 2020-06-15 08:51 | Outpatient (CLI) | payer MEDICARE, BC, SELFPAY ==
--- NOTE | 2020-06-15 | CT_ITS ---
PROCEDURE: CT ABDOMEN PELVIS W CON CLINICAL INDICATION: Follow-up colon cancer COMPARISON: CT ABDPELW CT abdomen pelvis w con from 11/07/[address] ABDOMEN PELVIS W CON from 07/06/2019 TECHNIQUE: IV Contrast: 75ML Isovue 370 Oral Contrast None Axial images obtained with sagittal and coronal reformats. All CT scans at the facility use one or more dose reduction, viz: automated exposure control, ma/kV adjustment per patient size (including targeted exams where dose is matched to indication, i.e. head), or iterative reconstruction technique. FINDINGS: There is a subtle area of decreased attenuation in the right lobe of the liver inferiorly image 44 series 5. This probably due to small cyst is not significantly changed from 11/07/2017. The liver is otherwise unremarkable. The gallbladder, spleen, adrenal glands, and pancreas have an unremarkable appearance. There is nonobstructing 4 mm stone in the upper pole of the left kidney. No ureteral calculi. No hydronephrosis. No abdominal or pelvic adenopathy. No retroperitoneal adenopathy. There are few small retroperitoneal lymph nodes which are stable. No evidence of appendicitis or diverticulitis. Prior partial sigmoidectomy with anastomosis noted having an unremarkable appearance. No acute bony anomalies. IMPRESSION: No significant change. No convincing evidence of metastatic disease. Dictated by: Tyrone Camilo MD 06/17/2020 10:34 Tyrone Camilo MD in [place] 06/17/2020 10:34
--- NOTE | 2020-06-15 08:55 | CT_ITS ---
PROCEDURE: CT CHEST W CON CLINCAL INDICATION: colon cancer f/u COMPARISON: CT CT CHEST W CON from 07/06/2019 TECHNIQUE: IV Contrast: 75ml Isovue 370 Axial images obtained with sagittal and coronal reformats. All CT scans at the facility use one or more dose reduction, viz: automated exposure control, ma/kV adjustment per patient size (including targeted exams where dose is matched to indication, i.e. head), or iterative reconstruction technique. FINDINGS: HEART AND MEDIASTINAL STRUCTURES: Mild mediastinal adenopathy once again noted not significantly changed. LUNGS AND PLEURAL SPACES: There is patchy infiltrate in the right upper lobe which is developed in the interval. There is a stable 5 mm cavitating nodule in the right middle lobe. There are mild atelectatic changes. A stable 7 mm nodules present in the right lower lobe laterally containing a small focus of calcification. There is an irregular opacity which is developed in the left upper lobe at 16 x 14 mm which appears subsolid. No effusions. BONY STRUCTURES: No lytic or blastic lesions apparent UPPER ABDOMEN: See abdomen report ADDITIONAL FINDINGS: No other significant abnormalities. IMPRESSION: 1. No change mild mediastinal adenopathy. 2. There is a new ground-glass area of infiltrate in the right upper lobe consistent with an area of pneumonia which could be seen with Covid19. 3. 16 mm sub solid opacity in the left upper lobe. A sub solid opacity could be related to an area of inflammation or infection. Cannot exclude the possibility of neoplastic/metastatic nodule. Continued follow-up suggested. Dictated by: Tyrone Camilo MD 06/17/2020 10:25 Tyrone Camilo MD in [facility] 06/17/2020 10:25
== END ==
PROVIDERS: PCP Internal Medicine Adolescent Medicine; Visit Provider Internal Medicine Medical Oncology
DX: C18.9 Malignant neoplasm of colon, unspecified (principal)
CPT/HCPCS: 71260; 74177; Q9967

== ENCOUNTER → 2020-06-22 12:00 | Outpatient (CLI) | payer MEDICARE, BC, SELFPAY | PROVIDERS: PCP Internal Medicine Adolescent Medicine; Visit Provider Internal Medicine Medical Oncology | DX: Z20.828 Contact with and (suspected) exposure to other viral communicable diseases (principal); U07.1 COVID-19 | CPT/HCPCS: U0003 ==

== ENCOUNTER → 2020-09-18 12:41 | Outpatient (CLI) | payer MEDICARE, BC, SELFPAY ==
[2020-09-18 13:45] LABS: Basophils # 0.1 K/mm3 (0-0.2); Basophils % 1.5 % (0.1-2.0); Eosinophils # 0.2 K/mm3 (0.0-0.4); Eosinophils % 2.6 % (0.1-12.0); Hematocrit 52.4 % (42.0-52.0); Hemoglobin 17.2 g/dL (14.1-18.0); Lymphocytes # 1.6 K/mm3 (0.7-4.5); Lymphocytes % 23.9 % (10-50); Mean Corpuscular HGB Conc 32.8 g/dL (31.8-35.4); Mean Corpuscular Hemoglobin 29.9 pg (27.0-31.2); Mean Corpuscular Volume 91.2 fl (80-94); Monocytes # 0.5 K/mm3 (0.1-1.0); Monocytes % 7.1 % (1.7-9.3); Neutrophils # 4.4 K/mm3 (1.8-7.8); Neutrophils % 64.9 % (37.0-80.0); Platelet Count 225 K/mm3 (142-424); Red Blood Count 5.75 M/mm3 (4.60-6.20); Red Cell Distribution Width 13.7 % (11.5-17.5); White Blood Count 6.8 K/mm3 (4.8-10.8)
[2020-09-18 14:32] LABS: Chloride 105 mmol/L (98-107); Potassium 5.2 mmoL/L (3.5-5.1); Sodium 139 mmol/L (136-145)
[2020-09-18 14:34] LABS: Blood Urea Nitrogen 26 mg/dl (9-20); Estimated Glomerular Filt Rate 96 ml/min (>60); GFR (African American) 117 ML/MIN (>60)
[2020-09-18 14:35] LABS: Alanine Aminotransferase 21 U/L (12-78); Albumin Level 4.5 g/dl (3.5-5.0); Albumin/Globulin Ratio 1.4 (1.1-1.8); Alkaline Phosphatase 74 U/L (38-126); Anion Gap 11.2 mEq/L (5-15); Aspartate Amino Transferase 31 U/L (17-59); Bilirubin,Total 0.5 mg/dl (0.2-1.3); Calcium 9.8 mg/dl (8.4-10.2); Carbon Dioxide 28 mmol/L (22.0-30.0); Globulin 3.3 g/dL (1.3-3.2); Glucose 100 mg/dl (74-100); Total Protein,Serum 7.8 g/dl (6.3-8.2)
== END ==
PROVIDERS: Visit Provider Internal Medicine Medical Oncology
DX: C18.9 Malignant neoplasm of colon, unspecified (principal); Z87.01 Personal history of pneumonia (recurrent)
CPT/HCPCS: 36415; 80053; 85025

== ENCOUNTER → 2020-09-25 12:59 | Outpatient (CLI) | payer MEDICARE, BC, SELFPAY ==
--- NOTE | 2020-09-25 13:04 | CT_ITS ---
PROCEDURE: CT CHEST W CON CLINCAL INDICATION: COLON CA Nodule Hx of pneumonia Left upper lobe nodule COMPARISON: CT CT ABDOMEN PELVIS W CON from 06/15/[address] CHEST W CON from 06/15/2020 TECHNIQUE: IV Contrast: 75ml Isovue 370 Axial images obtained with sagittal and coronal reformats. All CT scans at the facility use one or more dose reduction, viz: automated exposure control, ma/kV adjustment per patient size (including targeted exams where dose is matched to indication, i.e. head), or iterative reconstruction technique. FINDINGS: HEART AND MEDIASTINAL STRUCTURES: Mild mediastinal adenopathy once again noted not significantly changed. Small small bilateral hilar nodes are present some of which contain calcium not significantly changed. Coronary artery calcifications are present. LUNGS AND PLEURAL SPACES: Previously noted ground-glass infiltrate in the right upper lobe has resolved. Stable subpleural nodule right upper lobe at 3 mm. Small area of cavitation right middle lobe unchanged. Stable 7 mm nodule right lower lobe previously noted sub solid nodule in the left upper lobe has resolved. No new nodules are evident. BONY STRUCTURES: Mild degenerative changes thoracic spine. UPPER ABDOMEN: Fatty liver ADDITIONAL FINDINGS: Mild gynecomastia IMPRESSION: 1. Stable mediastinal adenopathy. 2. Previously noted new sub solid nodule in the left upper lobe and ground-glass infiltrate in the right upper lobe have resolved.. 7 mm nodule right lower lobe stable. No new nodules. Dictated by: Tyrone Camilo MD 09/27/2020 07:17 Tyrone Camilo MD in [place] 09/27/2020 07:17
== END ==
PROVIDERS: PCP Internal Medicine Adolescent Medicine; Visit Provider Internal Medicine Medical Oncology
DX: Z87.01 Personal history of pneumonia (recurrent); C19 Malignant neoplasm of rectosigmoid junction; R91.8 Other nonspecific abnormal finding of lung field
CPT/HCPCS: 71260; Q9967

== ENCOUNTER 2020-10-07 19:03 | Emergency (ER) | payer MEDICARE, BC, SELFPAY ==
--- NOTE | 2020-10-07 18:54 | ECG_ITS ---
APPROVED REPORT Exam: Resting ECG HR:65 bpm ECG Measurements Heart Rate 65 AXES TN 154 P 49 QRSd 84 QRS -6 QT 384 T 5 QTc 399 Conclusion Normal sinus rhythm Normal ECG Electronically signed by : Braden Louis, 10/08/2020 07:25:56
[2020-10-07 19:03] VITALS: BP 142/92; PULSE 78; RESP 18; TEMP 36.8; O2SAT 98; BMI 32.1
--- NOTE | 2020-10-07 19:43 | XR_ITS ---
PROCEDURE: XR CHEST PORTABLE CLINICAL HISTORY: chest pain COMPARISON: CR CXR CHEST(2 VIEWS-NOT PORTABLE) from 12/19/2014 CR CXR2V XR chest 2V from 12/22/2017 CR CXR2V XR chest 2V from 05/26/[address] CHEST W CON from 09/25/2020 FINDINGS: The cardiomediastinal silhouette and pulmonary vascularity are within normal limits. The lungs are clear without infiltrates, suspicious nodules, or pleural effusions. No acute bony abnormalities. IMPRESSION: No acute findings. Dictated by: Dr. Woo Cline MD 10/08/2020 08:26 Dr. Woo Cline MD in [place] 10/08/2020 08:26
[2020-10-07 19:50] LABS: Chloride 108 mmol/L (98-107); Potassium 4.4 mmoL/L (3.5-5.1); Sodium 140 mmol/L (136-145)
[2020-10-07 19:53] LABS: Alanine Aminotransferase 25 U/L (12-78); Albumin Level 4.7 g/dl (3.5-5.0); Albumin/Globulin Ratio 1.5 (1.1-1.8); Alkaline Phosphatase 71 U/L (38-126); Anion Gap 8.4 mEq/L (5-15); Aspartate Amino Transferase 35 U/L (17-59); Bilirubin,Total 0.5 mg/dl (0.2-1.3); Blood Urea Nitrogen 23 mg/dl (9-20); Carbon Dioxide 28 mmol/L (22.0-30.0); Creatinine Clearance Estimated 106 mL/min (50-200); Estimated Glomerular Filt Rate 75 ml/min (>60); GFR (African American) 90 ML/MIN (>60); Globulin 3.2 g/dL (1.3-3.2); Total Protein,Serum 7.9 g/dl (6.3-8.2)
[2020-10-07 19:54] LABS: Calcium 9.9 mg/dl (8.4-10.2); Glucose 109 mg/dl (74-100)
[2020-10-07 20:06] LABS: Troponin I < 0.01 ng/ml (0.00-0.034)
[2020-10-07 20:11] LABS: Basophils # 0.1 K/mm3 (0-0.2); Basophils % 1.1 % (0.1-2.0); Eosinophils # 0.1 K/mm3 (0.0-0.4); Hematocrit 52.1 % (42.0-52.0); Hemoglobin 16.6 g/dL (14.1-18.0); Lymphocytes # 1.1 K/mm3 (0.7-4.5); Lymphocytes % 11.8 % (10-50); Mean Corpuscular HGB Conc 31.8 g/dL (31.8-35.4); Mean Corpuscular Hemoglobin 29.3 pg (27.0-31.2); Mean Corpuscular Volume 92.1 fl (80-94); Mean Platelet Volume 8.7 fl (7.4-10.4); Monocytes # 0.6 K/mm3 (0.1-1.0); Monocytes % 6.3 % (1.7-9.3); Neutrophils # 7.3 K/mm3 (1.8-7.8); Neutrophils % 79.8 % (37.0-80.0); Platelet Count 212 K/mm3 (142-424); Red Blood Count 5.66 M/mm3 (4.60-6.20); Red Cell Distribution Width 13.3 % (11.5-17.5); White Blood Count 9.1 K/mm3 (4.8-10.8)
--- NOTE | 2020-10-07 21:10 | HMH.EDCP ---
ED Disposition Clinical Impression: Stable angina Disposition: Home, Self-Care Condition on Discharge: Good Instructions: DI for Atypical Chest Pain Additional Instructions: Please follow-up with cardiology for further evaluation of your angina on exertion Please follow-up with your PCP to ensure improvement in symptoms If symptoms persist or worsen, if you continue to have this chest pain, please return to the ED for further evaluation. Referrals: Braden Louis MD [Primary Care Provider] - Diogo Briseno MD [Staff Physician] - - Critical Care Critical Care Time: No Attestation: On 10/07/20, the high probability of a clinically significant, sudden or life threatening deterioration of the following system(s) required my full and direct attention, intervention and personal management. The time I documented below is in addition to time spent performing reported procedures but includes the following listed in this critical care notation. Medical Decision Making - Medical Records Medical records reviewed: Yes: I reviewed the patient's medical records. - Kedar Inquiry Pt receiving controlled substance: No Vital Signs: 10/07/20 19:03 Temperature 98.2 F Temperature Source Oral Pulse Rate [Right] 78 Respiratory Rate 18 Blood Pressure [Right Arm] 142/92 H Blood Pressure Mean [Right Arm] 108 02 Sat by Pulse Oximetry 98 - Lab Data Lab Results 10/07/20 19:00: WBC 9.1, RBC 5.66, Hgb 16.6, Hct 52.1 H, MCV 92.1, MCH 29.3, MCHC 31.8, RDW 13.3, Plt Count 212, MPV 8.7, Neut % (Auto) 79.8, Lymph % (Auto) 11.8, [place] % (Auto) 6.3, Eos % (Auto) 1.0, Baso % (Auto) 1.1, Neut # (Auto) 7.3, Lymph # (Auto) 1.1, [place] # (Auto) 0.6, Eos # (Auto) 0.1, Baso # (Auto) 0.1 10/07/20 19:00: Sodium 140, Potassium 4.4, Chloride 108 H, Carbon Dioxide 28, Anion Gap 8.4, BUN 23 H, Creatinine 1.00, Estimated Creat Clear 106, Estimated GFR 75, Est GFR ( Amer) 90, Glucose 109 H, Calcium 9.9, Total Bilirubin 0.5, AST 35, ALT 25, Alkaline Phosphatase 71, Troponin I < 0.01, Total Protein 7.9, Albumin 4.7, Globulin 3.2, Albumin/Globulin Ratio 1.5 Result diagrams: 10/07/20 19:00 10/07/20 19:00 Orders (Tests/Meds): ORDERS Category Date Time Status CXR --portable [XR chest portable] Stat Exams 10/07/20 19:43 Taken Troponin I Q3H Lab 10/07/20 22:45 Ordered Troponin I Q3H Lab 10/08/20 01:45 Ordered - ECG Data Tracing #1 I reviewed this ECG and interpreted as documented below: Chest Pain HPI - General Chief Complaint: Chest Pain Stated Complaint: CHEST TIGHTNESS Time Seen by Provider: 10/07/20 19:10 Mode of Arrival: Family Vehicle Limitations: No Limitations Description of Symptoms (Recalled from ER Triage Doc. by RN): PATIENT REPORTS HE HAD TWO EPISODES OF CHEST TIGHTNESS TODAY. PT DENIES ANY CHEST PAIN OR TIGHTNESS AT THIS TIME. PT DENIES ANY CARDIAC HISTORY. PT REPORTS CHEST TIGHTNESS OCCURED AFTER EXERTION. - History of Present Illness HPI narrative: Patient states he was using a chainsaw earlier today when he began to develop retrosternal chest tightness. He states that he stopped working for a bit and alleviated symptoms. 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 Patient states that at this time he sat down for a while and the fact that it had happened again prompted presentation to the ED. He states that after several minutes of sitting down, his symptoms completely resolved in route to the ED. He otherwise denies any fevers, chills, nausea, vomiting, abdominal pain, shortness of breath. - Related Data Home Medications Medication Instructions Recorded Confirmed No Known Home Medications 06/06/20 09/29/20 Allergies Allergy/AdvReac Type Severity Reaction Status Date / Time Penicillins Allergy Severe S-DIFF. Verified 09/29/20 11:26 BREATHING [facility] History - Hepatitis A Screen Drug us
[2020-10-07 23:14] VITALS: BP 138/86; PULSE 76; RESP 18; TEMP 36.8; O2SAT 97
== END 2020-10-07 20:17 | disposition home or self-care (01) ==
PROVIDERS: Emergency Provider Emergency Medicine; PCP Internal Medicine Adolescent Medicine
DX: I20.8 Other forms of angina pectoris (principal); Z88.0 Allergy status to penicillin; Z85.038 Personal history of other malignant neoplasm of large intestine
CPT/HCPCS: 71045; 80053; 84484; 85025; 93005; 99282

== ENCOUNTER 2020-10-24 09:14 | Inpatient (IN) | payer MEDICARE, BC, SELFPAY ==
[2020-10-24] VITALS (23 sets, daily range): BP systolic 93–141; BP diastolic 47–83; PULSE 58–85; RESP 12–20; TEMP 36.5–36.8; O2SAT 91–99; BMI 32.1
--- NOTE | 2020-10-24 | IR_ITS ---
APPROVED REPORT Patient Location: Emergent Supervisor [place]: HECTOR Frederick RT (R) PROCEDURES Left heart catheterization Left ventriculogram Selective coronary angiogram Drug-eluting stent deployment to the proximal dominant circumflex artery INDICATION Acute ST elevation myocardial infarction, Abnormal stress test, Coronary artery disease Informed consent was obtained prior to the procedure. COMPLICATIONS None Estimated Blood Loss: Less than 10 mls TECHNIQUE One percent lidocaine used to anesthetize the right anterior aspect of the wrist. The right radial artery was accessed via the Seldinger technique. A 6 Georgian sheath was placed in the right radial artery. 2.5 mg of verapamil, 800 mcg of nitroglycerin, 1mg Lidocaine and 5000 U Heparin were given through the arterial sheath. The Marblar 1 catheter was also used to perform left heart catheterization, left ventriculogram and selective coronary angiogram. Therapeutic heparin was administered giving a therapeutic ACT prior to the diagnostic procedure. The catheter was placed in the left main artery and a Choice PT extra-support wire was placed distally in the circumflex artery traversing the critical stenosis. A 3.5 x 38 mm resolute Alex stent was deployed at 16 liana reducing the critical stenosis to 0%. THEO-3 flow was present before and after the procedure. At the end of procedure the apparatus was removed the sheath was removed and hemostasis was achieved using TR banding patient was transferred to the postop holding her stable condition ANGIOGRAPHIC RESULTS The left main artery Normal The left anterior descending artery Has proximal 30% stenoses with mid vessel 30% stenosis in a concentric 50% stenosis. A small to moderate first diagonal artery which is 1.75 mm in diameter has a proximal 90% and a mid vessel 90% stenosis The circumflex artery Is a large dominant vessel has proximal 30% mid vessel concentric 90% stenosis The right coronary artery Small nondominant with proximal 90% stenosis The MTZ ventriculogram reveals Preserved at 60% The left ventricular end-diastolic pressure 25 mmHg IMPRESSION Critical disease in a proximal to mid dominant circumflex artery as described above Successful stenting of the proximal to mid circumflex artery critical disease reduced to 0% with 1 drug-eluting stent Persistent moderate LAD disease as described above with severe stenosis in a small to moderate sized first diagonal artery which is not amenable to stenting due to its small diameter Subtotal occlusion of a small nondominant right coronary artery which remains chronic Preserved ejection fraction Elevated LVEDP PLAN 1. Brilinta and aspirin 2. LDL less than 55 3. Cardiac rehabilitation 4. Avoidance of tobacco products 5. Medical management for the LAD and diagonal artery disease. It may be reasonable to repeat a stress test in 6 weeks to make sure the anterior wall does not have reversible defects. Ideally I believe medical management would be most warranted for the diffuse moderate disease throughout the LAD. I am confident the culprit for the ST elevation myocardial infarction was the dominant circumflex artery Electronically signed by : Diogo Briseno, 10/24/2020 10:05:07
--- NOTE | 2020-10-24 | CA_ITS ---
APPROVED REPORT EXAM: Comprehensive 2D, Doppler, and color-flow Echocardiogram Scroll Shear Operator: Ana Cespedes CRT Ht: 5 ft 11 in Wt: 234lbs BSA: 2.25 BP: 143/89 mmHg Indications: CP, STEMI,ABN EKG 2D Dimensions LVOT 2.10 cm (M/F) 1.5-2.5 LA Volume 44.00 mL LA Volume Index 19.60 mL/m2 (M/F) 16-34 M-Mode Dimensions RVDd 2.72 cm (0.9-2.6) LA Diam 3.73 cm (1.9-4.0) LVDd 4.88 cm (3.5-5.7) Ao Diam 3.68 cm (2.0-3.7) LVDs 3.52 cm (3.5-5.7) IVSd 1.47 cm (0.6-1.1) PWd 0.80 cm (0.6-1.1) EF (Teich) 53.80% FS 27.90% EDV (Teich) 111.70 mL TAPSE 1.88 (<1.7) ESV (Teich) 51.60 mL LV Diastology E Decel Time 150.00 (160-240 msec) E/A Ratio 0.76 MED E' 9.10 (< 7 cm/sec) MED A' 13.00 cm/s E'/MED E' Ratio 8.87 (>14) LAT E' 7.60 (<10 cm/sec) LAT A' 10.80 cm/s E/LAT E' Ratio 10.62 (>14) Aortic Valve AO Peak GR. 5.70 mmHg Mitral Valve MV A Velocity 106.00 (40-130 cm/s) E/A Ratio 0.76 MV Decel. Time 150.00 (160-240 ms) Pulmonary Valve PV Peak Velocity 88.00 (50-150 cm/s) Tricuspid Valve TR P. Velocity 254.00 cm/s RAP Estimate 10.00 mmHg RVSP 35.90 mmHg Left Ventricle Left atrium is mildly enlarged, left ventricle is normal size, mild concentric left ventricular hypertrophy, visually estimated ejection fraction 55% with no regional wall motion abnormality, grade 1 diastolic dysfunction seen without tissue Doppler evidence of raise left atrial pressure. Right Ventricle Right atrium and right ventricle are normal size and contractility. Aortic Valve Aortic valve is minimally thickened and fibrosed, there is no aortic stenosis or aortic insufficiency. Mitral Valve Mitral valve is grossly normal, there is trace mitral regurgitation. Tricuspid Valve Tricuspid grossly normal, there is trace tricuspid regurgitation, tricuspid regurgitation jet velocity is inadequate for calculation of the right ventricular systolic pressure. Pulmonic Valve Pulmonic valve is poorly visualized. Great Vessels Aortic root is normal size. Pericardium No significant pericardial effusion noted. Conclusion 1. Mildly enlarged left atrium, normal left ventricular size, mild concentric left ventricular hypertrophy, visually estimated ejection fraction 55% with no regional wall motion abnormality, grade 1 diastolic dysfunction seen without tissue Doppler evidence of raise left atrial pressure. 2. Trace mitral and tricuspid regurgitation. 3. No significant pericardial effusion noted. Electronically signed by : Marco A Flynn, 10/24/2020 19:28:27
--- NOTE | 2020-10-24 07:24 | NM_ITS ---
APPROVED REPORT Exam: Nuclear Stress Test Indication: Chest pain, SOB, Abnormal EKG Patient Location: Outpatient Stress Tech: Linda Nichols [place] Tech:Ann Marie Rendon, ARRT, RT (R)(N) Ht: 5 ft 11 in Wt: 230 lbs HR: 62 bpm BP: 148/89 mmHg BSA: 2.24 m2 BMI: 32.0 History: Chest pain, SOB, Abnormal EKG Procedure: Patient exercised on León protocol 5:31 minutes and sec, resting heart rate 62 bpm, resting blood pressure 148/89 mmHg, with exercise maximum heart rate achived was 136 bpm which is % of the maximum predicted heart rate and blood pressure was 154/82 mmHg. Test was stopped due to SOA. Cardiac Stress and Resting SPECT Images: Cardiac Stress and Resting SPECT images were obtained using technetium 99m Myoview 31.4 mCi stress and 10.51 mCi at rest. Unable to complete Stress imaging. After treadmill stress patient went straight to the Inspector Screen Printing for Stemi Alert. Conclusion: Myocardial perfusion images were not performed. Electronically signed by : Marco A Flynn, 10/24/2020 18:16:03
--- NOTE | 2020-10-24 09:09 | ECG_ITS ---
APPROVED REPORT Exam: Resting ECG HR:89 bpm ECG Measurements Heart Rate 89 AXES NV 160 P 52 QRSd 74 QRS -8 QT 362 T -16 QTc 440 Conclusion Sinus rhythm with premature atrial complexes with aberrant conduction Otherwise normal ECG Electronically signed by : Braden Louis, 10/25/2020 17:36:00
--- NOTE | 2020-10-24 09:18 | PC.NURSE ---
PATIENT TO TOOLS DEVELOPER AT THIS TIME
--- NOTE | 2020-10-24 09:18 | PC.NURSE ---
pt taken to radiographer cardiac catheterization
--- NOTE | 2020-10-24 09:19 | HMH.EDGENADL ---
ED Disposition Clinical Impression: STEMI (ST elevation myocardial infarction) Qualifiers: Involved coronary artery: unspecified coronary artery Qualified Code(s): I21.3 - ST elevation (STEMI) myocardial infarction of unspecified site Disposition: Still a Patient Condition on Discharge: Serious - Critical Care Critical Care Time: No Attestation: On , the high probability of a clinically significant, sudden or life threatening deterioration of the following system(s) required my full and direct attention, intervention and personal management. The time I documented below is in addition to time spent performing reported procedures but includes the following listed in this critical care notation. Medical Decision Making - Kedar Inquiry Pt receiving controlled substance: No Vital Signs: 10/24/20 09:14 Temperature 97.8 F Temperature Source Oral Pulse Rate [Right] 81 Respiratory Rate 18 Blood Pressure [Right Arm] 138/81 Blood Pressure Mean [Right Arm] 100 02 Sat by Pulse Oximetry 97 - Lab Data Lab Results 10/24/20 09:15: WBC 7.0, RBC 5.73, Hgb 17.2, Hct 53.0 H, MCV 92.5, MCH 30.0, MCHC 32.5, RDW 13.5, Plt Count 208, MPV 7.6, Neut % (Auto) 60.2, Lymph % (Auto) 29.3, [place] % (Auto) 6.9, Eos % (Auto) 2.8, Baso % (Auto) 0.9, Neut # (Auto) 4.2, Lymph # (Auto) 2.0, [place] # (Auto) 0.5, Eos # (Auto) 0.2, Baso # (Auto) 0.1 10/24/20 09:15: Sodium 137, Potassium 4.3, Chloride 103, Carbon Dioxide 20 L, Anion Gap 18.3 H, BUN 22 H, Creatinine 0.90, Estimated Creat Clear 106, Estimated GFR 84, Est GFR ( Amer) 102, Glucose 130 H, Calcium 9.7 Result diagrams: 10/24/20 09:15 10/24/20 09:15 Orders (Tests/Meds): ED MEDICATIONS Generic Name Dose Route Start Last Admin Trade Name Freq PRN Reason Stop Dose Admin Aspirin 325 mg 10/24/20 09:31 10/24/20 09:35 Aspirin 325mg Tablet PO 10/24/20 09:32 325 mg ONCE ONE Administration Diphenhydramine HCl 50 mg 10/24/20 09:31 10/24/20 09:36 Diphenhydramine 50mg/Ml Vial IV 10/24/20 09:32 50 mg ONCE ONE Administration Fentanyl Citrate 25 mcg 10/24/20 09:31 Fentanyl 100mcg/2ml Vial IV 10/25/20 09:31 Q3MINP PRN Moderate to Severe Pain Fentanyl Citrate 50 mcg 10/24/20 09:31 Fentanyl 100mcg/2ml Vial IV 10/25/20 09:31 Q3MINP PRN Moderate to Severe Pain Fentanyl Citrate 25 mcg 10/24/20 09:31 Fentanyl 250mcg/5ml Vial IV 10/25/20 09:31 Q3MINP PRN Moderate to Severe Pain Fentanyl Citrate 50 mcg 10/24/20 09:31 Fentanyl 250mcg/5ml Vial IV 10/25/20 09:31 Q3MINP PRN Moderate to Severe Pain Flumazenil 0.2 mg 10/24/20 09:31 Flumazenil 0.1mg/Ml 5ml Vial IV 10/24/20 23:00 NEEDED PRN Sedation Heparin Sodium (Porcine) 10,000 unit 10/24/20 09:31 10/24/20 09:35 Heparin 1,000 Units/Ml 10ml Vial (Hand Tube Winder) IV 10/24/20 13:31 10,000 unit NEEDED PRN Administration Emergency Box Animal Cop Heparin Sodium/Sodium Chloride 3,000 unit 10/24/20 09:31 10/24/20 09:36 Heparin 1,000 Units/500ml Ns (Hand Tube Winder) IV 10/24/20 09:32 3,000 unit ONCE ONE Administration Sodium Chloride 1,000 mls @ 25 mls/hr 10/24/20 09:45 10/24/20 09:36 Sod Chlor 0.9% 1000ml Bag IV 10/25/20 09:31 25 mls/hr .Q25H KENDAL Administration Lidocaine HCl 20 ml 10/24/20 09:31 10/24/20 09:35 Lidocaine 1% 5ml Pf Vial IJ 10/24/20 09:32 5 ml ONCE ONE Administration Lidocaine HCl 20 ml 10/24/20 09:31 Lidocaine 1% 10ml Mdv IJ 10/24/20 09:32 ONCE ONE Midazolam HCl 1 mg 10/24/20 09:31 Midazolam 2mg/2ml Vial IV 10/25/20 09:31 Q3MINP PRN Sedation Midazolam HCl 1 mg 10/24/20 09:31 Midazolam Hcl 1mg/1ml 5ml Vial IV 10/25/20 09:31 Q3MINP PRN Sedation Naloxone HCl 0.4 mg 10/24/20 09:31 Naloxone 0.4mg/Ml Vial IV 10/25/20 09:31 Q5MINP PRN Decreased Respirations Nitroglycerin 800 mcg 10/24/20 09:31 10/24/20 09:35 Nitroglycerin 800mcg/8ml Sy
--- NOTE | 2020-10-24 09:22 | XR_ITS ---
PROCEDURE: XR CHEST PORTABLE CLINICAL HISTORY: soa COMPARISON: CR CXR2V XR chest 2V from 12/22/2017 CR CXR2V XR chest 2V from 05/26/[address] CHEST W CON from 09/25/2020 CR XR CHEST PORTABLE from 10/07/2020 FINDINGS: The cardiomediastinal silhouette and pulmonary vascularity are within normal limits. The lungs are clear without infiltrates, suspicious nodules, or pleural effusions. No acute bony abnormalities. IMPRESSION: No acute findings. Dictated by: Tyrone Camilo MD 10/24/2020 15:16 Tyrone Camilo MD in [place] 10/24/2020 15:16
[2020-10-24 09:30] LABS: Basophils # 0.1 K/mm3 (0-0.2); Basophils % 0.9 % (0.1-2.0); Eosinophils # 0.2 K/mm3 (0.0-0.4); Eosinophils % 2.8 % (0.1-12.0); Hemoglobin 17.2 g/dL (14.1-18.0); Lymphocytes % 29.3 % (10-50); Mean Corpuscular HGB Conc 32.5 g/dL (31.8-35.4); Mean Corpuscular Volume 92.5 fl (80-94); Mean Platelet Volume 7.6 fl (7.4-10.4); Monocytes # 0.5 K/mm3 (0.1-1.0); Monocytes % 6.9 % (1.7-9.3); Neutrophils # 4.2 K/mm3 (1.8-7.8); Neutrophils % 60.2 % (37.0-80.0); Platelet Count 208 K/mm3 (142-424); Red Blood Count 5.73 M/mm3 (4.60-6.20); Red Cell Distribution Width 13.5 % (11.5-17.5)
[2020-10-24 09:32] LABS: Chloride 103 mmol/L (98-107); Potassium 4.3 mmoL/L (3.5-5.1); Sodium 137 mmol/L (136-145)
--- NOTE | 2020-10-24 09:33 | PC.NURSE ---
Dr Green speaking with Dr Luis.
[2020-10-24 09:35] LABS: Anion Gap 18.3 mEq/L (5-15); Blood Urea Nitrogen 22 mg/dl (9-20); Calcium 9.7 mg/dl (8.4-10.2); Carbon Dioxide 20 mmol/L (22.0-30.0); Creatinine Clearance Estimated 106 mL/min (50-200); Estimated Glomerular Filt Rate 84 ml/min (>60); GFR (African American) 102 ML/MIN (>60); Glucose 130 mg/dl (74-100)
--- NOTE | 2020-10-24 09:35 | PC.NURSE ---
UNABLE TO OBTAIN MEDICATION LIST DUE TO PATIENT LEAVING FOR CARE PROFESSIONALS
--- NOTE | 2020-10-24 09:38 | PC.NURSE ---
Addendum entered by Sahra Marroquin, EMT 10/24/20 09:39: at 0911 Original Note: stemi alert called
--- NOTE | 2020-10-24 09:40 | SUR.PREOP ---
emergent STEMI case
--- NOTE | 2020-10-24 09:45 | HMH.CNCARD ---
History of Present Illness Consult date: 10/24/20 Requesting physician: Braden Louis Consult reason: chest pain Chief complaint: Chest pain, ACS/STEMI Additional Medical History:: 1. Acute coronary syndrome/inferior STEMI, 10/24/2020 2. Suspected dyslipidemia History of present illness: The patient is brought from nuclear medicine where he was having a stress test for angina symptoms. He says that he had 2 episodes of chest pain on Friday couple of weeks ago. He was seen in the emergency department here. He followed up in the gunner mate office and says he was started on metoprolol and aspirin and scheduled for stress test. During his stress test today his initial EKG had some inferior T wave inversion. During the stress test he developed shortness of breath and his EKG showed ST elevation, acute injury pattern in the inferior leads. He was therefore brought to the emergency department as a STEMI alert. He now feels short of breath from his stress test otherwise he is having no symptoms. Denies chest pain or pressure. He has no known cardiac history, he is a non-smoker, he does not have diabetes, hypertension, or hyperlipidemia. He denies family history of heart disease. The above per Dr. Green Patient confirms the events and history as related above. EKGs from the stress test reviewed showing [address] segment elevation in the inferior leads that resolved shortly after stress test was discontinued. [facility] History Medical History: Reports:: Cancer Denies:: Diabetes Mellitus Type 1, Diabetes Mellitus Type 2, Internal Pacemaker, Lung Disease, MRSA, Seizures *Have you ever received a pneumonia vaccine?: No *Have you received a flu vaccine this season?: Yes Other Medical History: Reports: Other Other Surgeries: Yes: Cancer Surgery, Colonoscopy, Colon Resection, Other. No: Pacemaker Amputation: No Fractures: No - *Social History Smoking Status: Never smoker Tobacco Type: smokeless tobacco Alcohol Intake: never Substance Use Type: denies use *Occupational Status:: retired Housing: house Household Members: spouse *Travel in the last 8 weeks: Inside the [facility] Family Hx:: Cancer, Hypertension Meds Home Medications Medication Instructions Recorded Confirmed Type Aspirin [Low Dose Aspirin EC] 81 mg PO DAILY 10/24/20 10/24/20 History Metoprolol Succinate [Metoprolol 25 mg PO DAILY 10/24/20 10/24/20 History Succinate 25mg Tablet*] Allergies Allergy/AdvReac Type Severity Reaction Status Date / Time Penicillins Allergy Severe S-DIFF. Verified 10/18/20 08:43 BREATHING Exam Vital signs and Labs for Last 24 Hours: Temp Pulse Resp BP Pulse Ox 97.8 F 81 18 138/81 97 10/24/20 09:14 10/24/20 09:14 10/24/20 09:14 10/24/20 09:14 10/24/20 09:14 Laboratory Results - last 24 hr 10/24/20 09:15: WBC 7.0, RBC 5.73, Hgb 17.2, Hct 53.0 H, MCV 92.5, MCH 30.0, MCHC 32.5, RDW 13.5, Plt Count 208, MPV 7.6, Neut % (Auto) 60.2, Lymph % (Auto) 29.3, [place] % (Auto) 6.9, Eos % (Auto) 2.8, Baso % (Auto) 0.9, Neut # (Auto) 4.2, Lymph # (Auto) 2.0, [place] # (Auto) 0.5, Eos # (Auto) 0.2, Baso # (Auto) 0.1 10/24/20 09:15: Sodium 137, Potassium 4.3, Chloride 103, Carbon Dioxide 20 L, Anion Gap 18.3 H, BUN 22 H, Creatinine 0.90, Estimated Creat Clear 106, Estimated GFR 84, Est GFR ( Amer) 102, Glucose 130 H, Calcium 9.7 I & O for Last 24 hours: Intake & Output 10/21/20 10/22/20 10/23/20 10/24/20 11:59 11:59 11:59 11:59 Weight 230 lb - Constitutional no acute distress - *Routine HEENT Exam Head: Present: normocephalic Eye: Present: EOMI, PERRL ENT: Present: mucous membranes moist - *Routine Neck Exam Present: supple. Absent: lymphadenopathy - *Routine Respiratory Exam Present: CTA bilaterally - *Routine Cardiovascular Exam Present: RRR - *Routine Abdominal Exam Present: soft, normoactive bowel sounds. Absent: tenderness - *Routine Extremities Exam Absent: cyanosis, clubbi
[2020-10-24 09:49] LABS: Troponin I < 0.01 ng/ml (0.00-0.034)
--- NOTE | 2020-10-24 10:01 | HMH.PHAINT ---
MEDICATION RECONCILIATION COMPLETED ON PATIENT USING EXTERNAL FILL HISTORY FROM PHARMACY AND LIST FROM CARDIOLOGY OFFICE. -TEZ SAVAGED
[2020-10-24 10:03] LABS: Chol/HDL Ratio 4.7 (1-3.5); Cholesterol 203 mg/dl (140-200); HDL Cholesterol 43 mg/dl (40-60); Triglycerides 110 mg/dl (30-150); VLDL Cholesterol 22 mg/dL (0-40)
[2020-10-24 10:14] LABS: Direct LDL Cholesterol 124.73 mg/dL (100-129)
[2020-10-24 10:22] LABS: Adenovirus,PCR Not Detected (NotDetected); Bordetella Pertussis Not Detected (NotDetected); Chlamydophila Pneumoniae, PCR Not Detected (NotDetected); Coronavirus 19, PCR Not Detected (NotDetected); Coronavirus 229E Not Detected (NotDetected); Coronavirus NL63 Not Detected (NotDetected); Coronavirus OC43 Not Detected (NotDetected); Coronovirus HKU1,PCR Not Detected (NotDetected); Human Metapneumovirus Not Detected (NotDetected); Influenza A, PCR Not Detected (NotDetected); Influenza AH1, 2009 Not Detected (NotDetected); Influenza AH1, PCR Not Detected (NotDetected); Influenza AH3,PCR Not Detected (NotDetected); Influenza B, PCR Not Detected (NotDetected); Mycoplasma Pneumoniae, PCR Not Detected (NotDetected); Parainfluenza 1, PCR Not Detected (NotDetected); Parainfluenza 2, PCR Not Detected (NotDetected); Parainfluenza 3, PCR Not Detected (NotDetected); Parainfluenza 4, PCR Not Detected (NotDetected); Respiratory Syncytial Virus Not Detected (NotDetected); Rhinovirus/Enterovirus Not Detected (NotDetected)
--- NOTE | 2020-10-24 10:57 | HMH.PHAVTE ---
[facility] Pharmacy VTE Monitoring - Patient Demographics Admission date: 10/24/20 Report Date: 10/24/20 Time: 10:57 Allergies/Adverse Reactions: Patient Allergies Penicillins Allergy (Severe, Verified 10/18/20 08:43) S-DIFF. BREATHING Height: 1.8 m Weight: 104.326 kg Patient Problems: Current Active Problems STEMI (ST elevation myocardial infarction) (Acute) Dyspnea (Acute) Abnormal electrocardiography (Acute) Chest pain (Acute) Coronary artery calcification seen on CAT scan (Chronic) - VTE Risk Labs: VTE Related Lab Results Hgb 17.2 g/dL (14.1-18.0) 10/24/20 09:15 Hct 53.0 % (42.0-52.0) H 10/24/20 09:15 Plt Count 208 K/mm3 (142-424) 10/24/20 09:15 BUN 22 mg/dl (9-20) H 10/24/20 09:15 Creatinine 0.90 mg/dl (0.66-1.25) 10/24/20 09:15 Estimated Creat Clear 106 mL/min (50-200) 10/24/20 09:15 Clinical Trial Participant: No - Prophylaxis VTE Prophylaxis Ordered?: Yes Types of VTE Prophylaxis: Pharmacological Pharmacologic Type: Other (BRILINTA/ASA)
[2020-10-24 12:13] LABS: CATHL Activated Clotting Time > 400 SEC (74-125)
--- NOTE | 2020-10-24 12:18 | HMH.ITSHM ---
Current Home Medications as stated by this patient Tesfaye Ackerman or personnel representative. []METOPROLOL ASA
--- NOTE | 2020-10-24 15:46 | HMH.HP ---
*Admission Date: 10/24/20 *Chief complaint: Chest pain *History of present illness: Mr. Ackerman is a 65-year-old male admitted after emergent left heart cath today. Patient came to the hospital for stress test and was noted to have [address] depressions in inferior leads. Was rushed to the ER where symptoms improved after cessation of exercise stress test but work-up was initiated for ACS. STEMI alert was initiated and patient was taken for left heart cath. Complaint of shortness of breath, chest pressure at time of symptom onset. See cath report for full details, status post stent placement in circumflex artery. Report reads as follows: IMPRESSION Critical disease in a proximal to mid dominant circumflex artery as described above Successful stenting of the proximal to mid circumflex artery critical disease reduced to 0% with 1 drug-eluting stent Persistent moderate LAD disease as described above with severe stenosis in a small to moderate sized first diagonal artery which is not amenable to stenting due to its small diameter Subtotal occlusion of a small nondominant right coronary artery which remains chronic Preserved ejection fraction Elevated LVEDP PLAN 1. Brilinta and aspirin 2. LDL less than 55 3. Cardiac rehabilitation 4. Avoidance of tobacco products 5. Medical management for the LAD and diagonal artery disease. It may be reasonable to repeat a stress test in 6 weeks to make sure the anterior wall does not have reversible defects. Ideally I believe medical management would be most warranted for the diffuse moderate disease throughout the LAD. I am confident the culprit for the ST elevation myocardial infarction was the dominant circumflex artery Patient to be managed overnight by medicine and observed for further events. Hemodynamically stable at this time. No further chest pain on interview. Patient with previous benign medical history, on no significant medications. [facility] History I have reviewed the patient's past medical history: Yes Medical History: Reports:: Cancer (COLON) Denies:: Diabetes Mellitus Type 1, Diabetes Mellitus Type 2, Internal Pacemaker, Lung Disease, MRSA, Seizures *Have you ever received a pneumonia vaccine?: Yes *Have you received a flu vaccine this season?: Yes Other Medical History: Reports: Other Other Surgeries: Yes: Cancer Surgery, Colonoscopy, Colon Resection, Other. No: Pacemaker Amputation: No Fractures: No - *Social History Last grade of school completed: Advanced degree Smoking Status: Never smoker Tobacco Type: smokeless tobacco Alcohol Intake: never Substance Use Type: denies use *Occupational Status:: retired Housing: house Household Members: spouse *Travel in the last 8 weeks: Inside the [place] Family Hx:: Cancer, Hypertension Review of Systems - Review of Systems Review of systems:: pertinent systems reviewed and negative unless documented below Meds Home Medications Medication Instructions Recorded Confirmed Type Aspirin [Low Dose Aspirin EC] 81 mg PO DAILY 10/24/20 10/24/20 History Metoprolol Succinate [Metoprolol 25 mg PO DAILY 10/24/20 10/24/20 History Succinate 25mg Tablet*] Ticagrelor [Brilinta 90mg 90 mg PO BID 10/24/20 10/24/20 History Tablet] Allergies Allergy/AdvReac Type Severity Reaction Status Date / Time Penicillins Allergy Severe S-DIFF. Verified 10/24/20 12:16 BREATHING Exam Vital signs and Labs for Last 24 Hours: Temp Pulse Resp BP Pulse Ox 97.7 F 75 19 118/75 99 10/24/20 13:29 10/24/20 13:29 10/24/20 13:29 10/24/20 13:29 10/24/20 14:43 Laboratory Results - last 24 hr 10/24/20 09:15: Troponin I < 0.01 10/24/20 09:15: WBC 7.0, RBC 5.73, Hgb 17.2, Hct 53.0 H, MCV 92.5, MCH 30.0, MCHC 32.5, RDW 13.5, Plt Count 208, MPV 7.6, Neut % (Auto) 60.2, Lymph % (Auto) 29.3, [place] % (Auto) 6.9, Eos % (Auto) 2.8, Baso % (Auto) 0.9, Neut # (Auto) 4.2, Lymph # (Auto) 2.0, [place] # (Auto) 0.5, Eos # (Auto) 0.2, Baso
--- NOTE | 2020-10-24 16:24 | PC.NURSE ---
Pt has been pleasant this shift. No pain reported. No SOA, chest pain, or weakness reported by pt. Pt has remained NSR on tele. VSS. Rt radial cath site remains CDI w/ telfa and tegaderm. No hematoma noted to the site as well. Lung sounds CTA. Active bowel sounds in all 4 quads, pt reports a BM prior to coming to the hospital this morning. No other acute changes or complaints at this time.
[2020-10-25] VITALS: BP 154/88; PULSE 60; PULSE 67; RESP 18; TEMP 36.6; O2SAT 96
[2020-10-25 03:47] VITALS: BP 128/83; PULSE 63; RESP 18; TEMP 36.5; O2SAT 99
[2020-10-25 04:00] VITALS: PULSE 56
[2020-10-25 05:00] VITALS: BMI 32.1
--- NOTE | 2020-10-25 06:39 | PC.NURSE ---
pt has slept throughout the night. no complaints voiced. cath site is c/d/i. alert and oriented. nsr w/st depression noted on telemetry. call light in reach. vss. will continue to monitor
[2020-10-25 07:31] LABS: Chloride 106 mmol/L (98-107); Potassium 4.4 mmoL/L (3.5-5.1); Sodium 137 mmol/L (136-145)
[2020-10-25 07:34] LABS: Anion Gap 11.4 mEq/L (5-15); Blood Urea Nitrogen 19 mg/dl (9-20); Carbon Dioxide 24 mmol/L (22.0-30.0); Creatinine Clearance Estimated 106 mL/min (50-200); Estimated Glomerular Filt Rate 84 ml/min (>60); GFR (African American) 102 ML/MIN (>60)
[2020-10-25 07:35] LABS: Calcium 9.1 mg/dl (8.4-10.2); Glucose 104 mg/dl (74-100)
[2020-10-25 07:36] LABS: Basophils # 0.1 K/mm3 (0-0.2); Basophils % 0.7 % (0.1-2.0); Eosinophils # 0.2 K/mm3 (0.0-0.4); Eosinophils % 2.5 % (0.1-12.0); Hematocrit 49.8 % (42.0-52.0); Hemoglobin 16.2 g/dL (14.1-18.0); Lymphocytes # 1.7 K/mm3 (0.7-4.5); Lymphocytes % 20.8 % (10-50); Mean Corpuscular HGB Conc 32.6 g/dL (31.8-35.4); Mean Corpuscular Volume 88.9 fl (80-94); Mean Platelet Volume 7.8 fl (7.4-10.4); Monocytes # 0.6 K/mm3 (0.1-1.0); Monocytes % 6.9 % (1.7-9.3); Neutrophils # 5.7 K/mm3 (1.8-7.8); Neutrophils % 69.2 % (37.0-80.0); Platelet Count 203 K/mm3 (142-424); Red Cell Distribution Width 13.4 % (11.5-17.5); White Blood Count 8.2 K/mm3 (4.8-10.8)
--- NOTE | 2020-10-25 07:46 | HMH.PNCARD ---
Subjective Date: 10/25/20 Time: 07:35 Principal diagnosis: STEMI Interval history: 65-year-old male admitted to [facility] with STEMI. Patient did undergo left heart catheterization yesterday which revealed critical disease of the proximal to mid dominant circumflex artery with successful stenting of the proximal to mid segment circumflex artery, persistent moderate LAD disease with severe stenosis in a small to moderate size first diagonal artery. Patient has had subtotal occlusion of the small nondominant RCA which remains chronic. Patient was started on Brilinta 90 mg twice daily and aspirin 81 mg p.o. Patient was started on the appropriate medications for coronary artery disease, such as metoprolol and statin. Patient denies chest pain, tightness or pressure. Patient does complain of slight shortness of breath with exertion. Patient states the shortness of breath has improved since heart cath. Patient instructed if he continues to have increased shortness of breath especially after starting on Brilinta. Please notify cardiology so we can switch to Plavix. Brilinta is known to cause shortness of breath. Patient denies swelling of the lower extremities. Patient denies palpitations or dizziness. Right radial cath site noted with dressing dry and intact. Patient denies pain at the site. Discussed with patient cardiac rehab to increase stamina. Patient is agreeable to cardiac rehab. Patient is to follow-up with cardiology in 1 week or sooner if signs and symptoms develop or persist. LHC:IMPRESSION Critical disease in a proximal to mid dominant circumflex artery as described above Successful stenting of the proximal to mid circumflex artery critical disease reduced to 0% with 1 drug-eluting stent Persistent moderate LAD disease as described above with severe stenosis in a small to moderate sized first diagonal artery which is not amenable to stenting due to its small diameter Subtotal occlusion of a small nondominant right coronary artery which remains chronic Preserved ejection fraction Elevated LVEDP PLAN 1. Brilinta and aspirin 2. LDL less than 55 3. Cardiac rehabilitation 4. Avoidance of tobacco products 5. Medical management for the LAD and diagonal artery disease. It may be reasonable to repeat a stress test in 6 weeks to make sure the anterior wall does not have reversible defects. Ideally I believe medical management would be most warranted for the diffuse moderate disease throughout the LAD. I am confident the culprit for the ST elevation myocardial infarction was the dominant circumflex artery Echo:Conclusion 1. Mildly enlarged left atrium, normal left ventricular size, mild concentric left ventricular hypertrophy, visually estimated ejection fraction 55% with no regional wall motion abnormality, grade 1 diastolic dysfunction seen without tissue Doppler evidence of raise left atrial pressure. 2. Trace mitral and tricuspid regurgitation. 3. No significant pericardial effusion noted. Please notify cardiology of any change in patient status. Thank you for allowing cardiology to participate in the care of this patient. Exam Vital signs and Labs for Last 24 Hours: Temp Pulse Resp BP Pulse Ox 97.7 F 56 L 18 128/83 99 10/25/20 03:47 10/25/20 04:00 10/25/20 03:47 10/25/20 03:47 10/25/20 03:47 Laboratory Results - last 24 hr 10/24/20 09:15: Troponin I < 0.01 10/24/20 09:15: WBC 7.0, RBC 5.73, Hgb 17.2, Hct 53.0 H, MCV 92.5, MCH 30.0, MCHC 32.5, RDW 13.5, Plt Count 208, MPV 7.6, Neut % (Auto) 60.2, Lymph % (Auto) 29.3, [place] % (Auto) 6.9, Eos % (Auto) 2.8, Baso % (Auto) 0.9, Neut # (Auto) 4.2, Lymph # (Auto) 2.0, [place] # (Auto) 0.5, Eos # (Auto) 0.2, Baso # (Auto) 0.1 10/24/20 09:15: Sodium 137, Potassium 4.3, Chloride 103, Carbon Dioxide 20 L, Anion Gap 18.3 H, BUN 22 H, Creatinine 0.90, Estimated Creat Clear 106, Estimated GFR 84, Est GFR ( Amer) 102, Glucose 130
[2020-10-25 08:00] VITALS: BP 146/95; PULSE 68; PULSE 71; RESP 16; TEMP 36.6; O2SAT 97
--- NOTE | 2020-10-25 08:11 | HMH.DCSUM ---
General - General Admission date:: 10/24/20 Discharge date: 10/25/20 HPI HPI: Mr. Ackerman is a 65-year-old male admitted after emergent left heart cath today. Patient came to the hospital for stress test and was noted to have [address] depressions in inferior leads. Was rushed to the ER where symptoms improved after cessation of exercise stress test but work-up was initiated for ACS. STEMI alert was initiated and patient was taken for left heart cath. Complaint of shortness of breath, chest pressure at time of symptom onset. See cath report for full details, status post stent placement in circumflex artery. Report reads as follows: IMPRESSION Critical disease in a proximal to mid dominant circumflex artery as described above Successful stenting of the proximal to mid circumflex artery critical disease reduced to 0% with 1 drug-eluting stent Persistent moderate LAD disease as described above with severe stenosis in a small to moderate sized first diagonal artery which is not amenable to stenting due to its small diameter Subtotal occlusion of a small nondominant right coronary artery which remains chronic Preserved ejection fraction Elevated LVEDP PLAN 1. Brilinta and aspirin 2. LDL less than 55 3. Cardiac rehabilitation 4. Avoidance of tobacco products 5. Medical management for the LAD and diagonal artery disease. It may be reasonable to repeat a stress test in 6 weeks to make sure the anterior wall does not have reversible defects. Ideally I believe medical management would be most warranted for the diffuse moderate disease throughout the LAD. I am confident the culprit for the ST elevation myocardial infarction was the dominant circumflex artery Patient to be managed overnight by medicine and observed for further events. Hemodynamically stable at this time. No further chest pain on interview. Patient with previous benign medical history, on no significant medications. Hospital Course Hospital Course: Patient admitted as noted above, went to heart cath as noted above, results noted. Patient did well overnight, this morning is asymptomatic, eating breakfast well, getting up and moving around the room without chest pain. Plan will be to discharge with dual antiplatelet therapy, lipid medication and close follow-up with cardiology and in our office as scheduled. Objective Vital signs: Temp Pulse Resp BP Pulse Ox 97.7 F 56 L 18 128/83 99 10/25/20 03:47 10/25/20 04:00 10/25/20 03:47 10/25/20 03:47 10/25/20 03:47 no acute distress - *Routine HEENT Exam Head: Present: normocephalic Eye: Present: EOMI, PERRL ENT: Present: mucous membranes moist - *Routine Neck Exam Present: supple - *Routine Respiratory Exam Present: CTA bilaterally - *Routine Cardiovascular Exam Present: RRR - *Routine Abdominal Exam Present: soft, normoactive bowel sounds. Absent: tenderness - *Routine Extremities Exam Absent: cyanosis, clubbing, edema - *Routine Skin Exam Present: warm. Absent: rash - Detailed Eye Exam Eyelids: Bilateral normal inspection Results Labs on day of discharge: Labs from last 24 hours 10/25/20 10/25/20 10/24/20 07:02 07:02 10:05 WBC 8.2 RBC 5.60 Hgb 16.2 Hct 49.8 MCV 88.9 MCH 29.0 MCHC 32.6 RDW 13.4 Plt Count 203 MPV 7.8 Neut % (Auto) 69.2 Lymph % (Auto) 20.8 [place] % (Auto) 6.9 Eos % (Auto) 2.5 Baso % (Auto) 0.7 Neut # (Auto) 5.7 Lymph # (Auto) 1.7 [place] # (Auto) 0.6 Eos # (Auto) 0.2 Baso # (Auto) 0.1 Activated Clotting Time Sodium 137 Potassium 4.4 Chloride 106 Carbon Dioxide 24 Anion Gap 11.4 BUN 19 Creatinine 0.90 Estimated Creat Clear 106 Estimated GFR 84 Est GFR ( Amer) 102 Glucose 104 H Calcium 9.1 Troponin I Triglycerides Cholesterol LDL Cholesterol Direct VLDL Cholesterol HDL Cholesterol Cholesterol/HDL Ratio
--- NOTE | 2020-10-25 09:40 | HMH.PHACLD ---
Tesfaye Ackerman has received discharge medication counseling on the following medications: ATORVASTATIN, LISINOPRIL, BRILINTA, ASPIRIN, AND METOPROLOL
== END 2020-10-25 10:18 | disposition home or self-care (01) | DRG 247 ==
LOC: ER 09:37 → CATHLAB 09:38 → 2ND 09:49
PROVIDERS: Internal Medicine; Physician Assistant; Admitting Provider Internal Medicine Adolescent Medicine; Emergency Provider Emergency Medicine; PCP Internal Medicine Adolescent Medicine; Visit Provider Internal Medicine Adolescent Medicine
PROC: 027034Z Dilation of Coronary Artery, One Artery with Drug-eluting Intraluminal Device, Percutaneous Approach (ICD-10-PCS; principal; 2020-10-24 11:00)
DX: I21.21 ST elevation (STEMI) myocardial infarction involving left circumflex coronary artery (principal); I25.119 Atherosclerotic heart disease of native coronary artery with unspecified angina pectoris; Z20.822 Contact with and (suspected) exposure to COVID-19; Z82.49 Family history of ischemic heart disease and other diseases of the circulatory system; Z79.82 Long term (current) use of aspirin; Z88.0 Allergy status to penicillin; Z85.038 Personal history of other malignant neoplasm of large intestine; I10 Essential (primary) hypertension; E78.5 Hyperlipidemia, unspecified
CPT/HCPCS: 36415; 71045; 78452; 80048; 80061; 84484; 85025; 85347; 87581; 87633; 87798; 92928; 93005; 93306; 93458; 99152; 99283; A9502; C1725; C1769; C1876; C9600; J1644; Q9967

== ENCOUNTER 2020-11-02 14:47 | Outpatient (RCR) | payer MEDICARE, BC, SELFPAY | END 2021-01-12 13:10 | disposition home or self-care (01) | LOC: PT 14:47 | PROVIDERS: Visit Provider Internal Medicine | DX: Z95.5 Presence of coronary angioplasty implant and graft (principal); I25.10 Atherosclerotic heart disease of native coronary artery without angina pectoris | CPT/HCPCS: 93798 ==

== ENCOUNTER → 2021-01-22 10:31 | Outpatient (CLI) | payer MEDICARE, BC, SELFPAY ==
[2021-01-22 10:54] LABS: Basophils # 0.1 K/mm3 (0-0.2); Basophils % 0.9 % (0.1-2.0); Eosinophils # 0.2 K/mm3 (0.0-0.4); Eosinophils % 2.1 % (0.1-12.0); Hematocrit 47.1 % (42.0-52.0); Hemoglobin 15.8 g/dL (14.1-18.0); Lymphocytes # 3.1 K/mm3 (0.7-4.5); Lymphocytes % 32.9 % (10-50); Mean Corpuscular HGB Conc 33.5 g/dL (31.8-35.4); Mean Corpuscular Volume 89.8 fl (80-94); Mean Platelet Volume 7.8 fl (7.4-10.4); Monocytes # 0.8 K/mm3 (0.1-1.0); Monocytes % 8.1 % (1.7-9.3); Neutrophils # 5.2 K/mm3 (1.8-7.8); Platelet Count 200 K/mm3 (142-424); Red Blood Count 5.25 M/mm3 (4.60-6.20); Red Cell Distribution Width 14.5 % (11.5-17.5); White Blood Count 9.3 K/mm3 (4.8-10.8)
[2021-01-22 12:04] LABS: Hemoglobin A1C 5.9 % (4.0-6.0)
[2021-01-22 12:07] LABS: Alanine Aminotransferase 25 U/L (12-78); Anion Gap 11.3 mEq/L (5-15); Aspartate Amino Transferase 27 U/L (17-59); Bilirubin,Total 0.6 mg/dl (0.2-1.3); Blood Urea Nitrogen 23 mg/dl (9-20); Calcium 9.2 mg/dl (8.4-10.2); Carbon Dioxide 27 mmol/L (22.0-30.0); Chloride 106 mmol/L (98-107); Estimated Glomerular Filt Rate 84 ml/min (>60); GFR (African American) 102 ML/MIN (>60); Globulin 2.9 g/dL (1.3-3.2); Glucose 98 mg/dl (74-100); Potassium 5.3 mmoL/L (3.5-5.1); Sodium 139 mmol/L (136-145); Total Protein,Serum 6.9 g/dl (6.3-8.2)
[2021-01-22 12:08] LABS: Albumin/Globulin Ratio 1.4 (1.1-1.8); Alkaline Phosphatase 74 U/L (38-126); Chol/HDL Ratio 3.6 (1-3.5); Cholesterol 135 mg/dl (140-200); HDL Cholesterol 37 mg/dl (40-60); Triglycerides 200 mg/dl (30-150); VLDL Cholesterol 40 mg/dL (0-40)
[2021-01-22 12:19] LABS: Direct LDL Cholesterol 76.61 mg/dL (100-129)
== END ==
PROVIDERS: Visit Provider Internal Medicine Adolescent Medicine
DX: I25.119 Atherosclerotic heart disease of native coronary artery with unspecified angina pectoris (principal); E78.5 Hyperlipidemia, unspecified; Z79.899 Other long term (current) drug therapy
CPT/HCPCS: 36415; 80053; 80061; 83036; 85025

== ENCOUNTER → 2021-02-28 14:15 | Outpatient (CLI) | payer MEDICARE, BC, SELFPAY ==
[2021-02-28 15:26] LABS: Chloride 103 mmol/L (98-107); Potassium 4.8 mmoL/L (3.5-5.1); Sodium 138 mmol/L (136-145)
[2021-02-28 15:29] LABS: Anion Gap 16.8 mEq/L (5-15); Blood Urea Nitrogen 25 mg/dl (9-20); Carbon Dioxide 23 mmol/L (22.0-30.0); Estimated Glomerular Filt Rate 96 ml/min (>60); GFR (African American) 117 ML/MIN (>60)
[2021-02-28 15:30] LABS: Calcium 9.5 mg/dl (8.4-10.2); Glucose 96 mg/dl (74-100)
== END ==
PROVIDERS: Visit Provider Nurse Practitioner Family
DX: E78.2 Mixed hyperlipidemia (principal); I10 Essential (primary) hypertension; I25.10 Atherosclerotic heart disease of native coronary artery without angina pectoris; Z95.5 Presence of coronary angioplasty implant and graft
CPT/HCPCS: 36415; 80048

== ENCOUNTER → 2021-09-18 12:23 | Outpatient (CLI) | payer MEDICARE, BC, SELFPAY ==
[2021-09-18 12:54] LABS: Basophils # 0.1 K/mm3 (0-0.2); Basophils % 1.3 % (0.1-2.0); Eosinophils # 0.2 K/mm3 (0.0-0.4); Hematocrit 50.2 % (42.0-52.0); Hemoglobin 16.3 g/dL (14.1-18.0); Lymphocytes # 2.1 K/mm3 (0.7-4.5); Lymphocytes % 28.1 % (10-50); Mean Corpuscular HGB Conc 32.5 g/dL (31.8-35.4); Mean Corpuscular Hemoglobin 30.4 pg (27.0-31.2); Mean Corpuscular Volume 93.5 fl (80-94); Mean Platelet Volume 8.8 fl (7.4-10.4); Monocytes # 0.5 K/mm3 (0.1-1.0); Monocytes % 6.9 % (1.7-9.3); Neutrophils # 4.7 K/mm3 (1.8-7.8); Neutrophils % 61.8 % (37.0-80.0); Platelet Count 127 K/mm3 (142-424); Red Blood Count 5.37 M/mm3 (4.60-6.20); Red Cell Distribution Width 13.6 % (11.5-17.5); White Blood Count 7.6 K/mm3 (4.8-10.8)
[2021-09-18 12:57] LABS: Chloride 108 mmol/L (98-107); Potassium 4.5 mmoL/L (3.5-5.1); Sodium 141 mmol/L (136-145)
[2021-09-18 13:00] LABS: Alanine Aminotransferase 33 U/L (12-78); Albumin Level 4.2 g/dl (3.5-5.0); Albumin/Globulin Ratio 1.4 (1.1-1.8); Alkaline Phosphatase 69 U/L (38-126); Anion Gap 11.5 mEq/L (5-15); Aspartate Amino Transferase 35 U/L (17-59); Bilirubin,Total 0.8 mg/dl (0.2-1.3); Blood Urea Nitrogen 21 mg/dl (9-20); Carbon Dioxide 26 mmol/L (22.0-30.0); Estimated Glomerular Filt Rate 96 ml/min (>60); GFR (African American) 116 ML/MIN (>60); Total Protein,Serum 7.2 g/dl (6.3-8.2)
[2021-09-18 13:01] LABS: Calcium 8.4 mg/dl (8.4-10.2); Glucose 101 mg/dl (74-100)
--- NOTE | 2021-09-18 13:16 | CT_ITS ---
FINAL REPORT CLINICAL HISTORY: PULMONARY NODULES COMPARISON: 09/25/2020 FINDINGS: Axial CT images of the chest were obtained with contrast. Coronal reformatted images were also obtained. This study was performed with techniques to keep radiation doses as low as reasonably achievable, (ALARA). Individualized dose reduction techniques using automated exposure control or adjustment of mA and/or KV according to the patient's size were employed. There are multiple mildly enlarged mediastinal lymph nodes which are stable and may be reactive. There is mild bibasilar atelectasis or scarring. There is a 2 mm lateral right upper lobe nodule which is stable on image 26. There are several less than 5 mm nodules in the right midlung which are stable. There is a stable 6 mm right lower lobe nodule. There is a 2 mm nodule in the left lower lobe which is stable on image 56. Limited images of the upper abdomen reveal no mass or localized inflammatory process. IMPRESSION: Stable pulmonary nodules which are likely benign. Consider additional follow-up in 12 months. Reviewed, Interpreted and Dictated by Paul Gupta III, MD Transcribed by Yanira Morrow Authenticated by Paul Gupta III, MD on 09/18/2021 02:32:24 PM [facility]
[2021-09-19 08:47] LABS: CEA 1.9 ng/mL (0.0-4.7)
== END ==
PROVIDERS: PCP Internal Medicine Adolescent Medicine; Visit Provider Internal Medicine Medical Oncology
DX: R91.1 Solitary pulmonary nodule (principal); C18.9 Malignant neoplasm of colon, unspecified
CPT/HCPCS: 36415; 71260; 80053; 82378; 85025; Q9967

== ENCOUNTER → 2021-10-22 09:51 | Outpatient (CLI) | payer MEDICARE, BC, SELFPAY ==
[2021-10-22 10:46] LABS: Basophils # 0.1 K/mm3 (0-0.2); Basophils % 1.9 % (0.1-2.0); Eosinophils # 0.2 K/mm3 (0.0-0.4); Eosinophils % 2.7 % (0.1-12.0); Hematocrit 52.1 % (42.0-52.0); Hemoglobin 17.1 g/dL (14.1-18.0); Lymphocytes # 1.5 K/mm3 (0.7-4.5); Lymphocytes % 24.6 % (10-50); Mean Corpuscular HGB Conc 32.8 g/dL (31.8-35.4); Mean Corpuscular Hemoglobin 30.4 pg (27.0-31.2); Mean Corpuscular Volume 92.5 fl (80-94); Mean Platelet Volume 8.8 fl (7.4-10.4); Monocytes # 0.3 K/mm3 (0.1-1.0); Monocytes % 5.5 % (1.7-9.3); Neutrophils % 65.3 % (37.0-80.0); Platelet Count 148 K/mm3 (142-424); Red Blood Count 5.63 M/mm3 (4.60-6.20); Red Cell Distribution Width 13.5 % (11.5-17.5)
[2021-10-22 11:53] LABS: Chloride 106 mmol/L (98-107); Potassium 5.2 mmoL/L (3.5-5.1); Sodium 139 mmol/L (136-145)
[2021-10-22 11:55] LABS: Blood Urea Nitrogen 25 mg/dl (9-20); Estimated Glomerular Filt Rate 96 ml/min (>60); GFR (African American) 116 ML/MIN (>60)
[2021-10-22 11:56] LABS: Alanine Aminotransferase 27 U/L (12-78); Albumin Level 4.1 g/dl (3.5-5.0); Albumin/Globulin Ratio 1.6 (1.1-1.8); Alkaline Phosphatase 70 U/L (38-126); Anion Gap 11.2 mEq/L (5-15); Aspartate Amino Transferase 30 U/L (17-59); Bilirubin,Total 0.9 mg/dl (0.2-1.3); Calcium 9.1 mg/dl (8.4-10.2); Carbon Dioxide 27 mmol/L (22.0-30.0); Cholesterol 113 mg/dl (140-200); Globulin 2.6 g/dL (1.3-3.2); Glucose 102 mg/dl (74-100); Total Protein,Serum 6.7 g/dl (6.3-8.2); Triglycerides 62 mg/dl (30-150); VLDL Cholesterol 12 mg/dL (0-40)
[2021-10-22 11:57] LABS: Chol/HDL Ratio 2.8 (1-3.5); HDL Cholesterol 40 mg/dl (40-60)
[2021-10-22 12:09] LABS: Direct LDL Cholesterol 60.73 mg/dL (100-129)
[2021-10-22 12:26] LABS: Thyroid Stimulating Hormone 1.26 uIU/mL (0.465-4.68)
[2021-10-22 13:38] LABS: Vitamin B12 314 pg/mL (239-931)
[2021-10-23 09:14] LABS: CEA 2.2 ng/mL (0.0-4.7)
== END ==
PROVIDERS: Visit Provider Internal Medicine Adolescent Medicine
DX: I25.119 Atherosclerotic heart disease of native coronary artery with unspecified angina pectoris (principal); Z85.038 Personal history of other malignant neoplasm of large intestine; G60.9 Hereditary and idiopathic neuropathy, unspecified
CPT/HCPCS: 36415; 80053; 80061; 82378; 82607; 83036; 84443; 85025

== ENCOUNTER → 2022-04-03 12:30 | Outpatient (CLI) | payer MEDICARE, BC, SELFPAY | PROVIDERS: PCP Internal Medicine Adolescent Medicine; Visit Provider Surgery | DX: Z01.812 Encounter for preprocedural laboratory examination (principal); Z20.822 Contact with and (suspected) exposure to COVID-19; Z12.11 Encounter for screening for malignant neoplasm of colon | CPT/HCPCS: C9803; U0003; U0005 ==

== ENCOUNTER 2022-04-05 06:18 | Day surgery (SDC) | payer MEDICARE, BC, SELFPAY ==
[2022-04-03 10:26] VITALS: BMI 32.8
[2022-04-05 07:07] VITALS: BP 137/82; PULSE 80; RESP 18; TEMP 36.4; O2SAT 96
[2022-04-05 07:25] VITALS: O2SAT 96
--- NOTE | 2022-04-05 08:03 | HMH.SCOPE ---
Procedure: Date: 04/05/22 Patient Date of :: 1955 Procedure Performed:: Total colonoscopy to terminal ileum with polypectomy and biopsies Indications:: Patient is a 66-year-old male who had undergone low anterior resection by Dr. Hartman in October 2011 for stage IIa colorectal adenocarcinoma. He did undergo chemotherapy and radiation. He has had several colonoscopies subsequently. I have personally performed colonoscopy in June 2016 at which time he had several tubular adenomas, June 2018 at which time he had a tubular adenoma and June 2020 at which time he had tubular adenoma x4. 2-year colonoscopy was recommended given the personal history of multiple adenomatous polyps and colon cancer as well as interval development of colon cancer. Performing Provider:: Paul Patel MD Referring Provider:: Braden Louis MD Sedation:: MAC sedation Procedure:: Patient history was obtained and appropriate physical examination was performed. Informed consent was obtained after explaining the benefits, alternatives, and risks of the procedure including, but not limited to, bleeding, perforation, missed lesions, and adverse reaction to anesthesia medications. Patient was informed of post-sedation precautions. The patient desired to proceed. Patient was transported to endoscopy procedure room. Patient was connected to monitoring devices. Patient was positioned in lateral decubitus position. Digital anorectal exam was performed. Variable stiffness Olympus colonoscope was inserted and advanced under direct visualization to the cecum. Adequacy of the colonic preparation was noted. The colonoscope was advanced a short distance into the terminal ileum. The colonoscope was then slowly withdrawn while carefully examining the color, texture, anatomy, and integrity of the mucosoa circumferentially. Within the rectum retroflexion was performed. Colonoscope was then withdrawn. Findings:: Terminal ileum appeared grossly normal Colonic preparation good Small adenomatous cecal polyp removed with cold snare with residual polyp removed with biopsy Descending colon hyperplastic appearing polyp removed with snare Distal sigmoid polyp, hyperplastic appearing, removed with biopsy Anastomosis at approximately 17 cm from the anal verge, biopsied Somewhat darkened prominent mucosa in the rectosigmoid region, likely secondary to prior radiation, biopsy performed and Hemoclip deployed for hemostasis Recommendations:: Follow-up colonoscopy pending pathology, likely 2 or 3 years Complications:: None immediately apparent Estimated blood obtained (mL): 2
[2022-04-05 08:05] VITALS: BP 124/85; PULSE 78; RESP 16; TEMP 36.3; O2SAT 95
[2022-04-05 08:15] VITALS: BP 113/76; PULSE 65; RESP 16; TEMP 36.3; O2SAT 98
[2022-04-05 08:25] VITALS: BP 124/83; PULSE 59; RESP 16; TEMP 36.3; O2SAT 98
[2022-04-05 08:35] VITALS: BP 134/76; PULSE 59; RESP 16; TEMP 36.3; O2SAT 99
== END 2022-04-05 08:35 | disposition home or self-care (01) ==
PROVIDERS: PCP Internal Medicine Adolescent Medicine; Visit Provider Surgery
PROC: 0DJD8ZZ Inspection of Lower Intestinal Tract, Via Natural or Artificial Opening Endoscopic (ICD-10-PCS; principal; 2022-04-05 07:30)
DX: Z12.11 Encounter for screening for malignant neoplasm of colon (principal); K63.5 Polyp of colon; Z85.038 Personal history of other malignant neoplasm of large intestine; Z79.899 Other long term (current) drug therapy; Z86.010 Personal history of colon polyps
CPT/HCPCS: 45380; 45385

== ENCOUNTER → 2022-07-02 08:47 | Outpatient (CLI) | payer MEDICARE, BC, SELFPAY ==
--- NOTE | 2022-07-02 08:51 | XR_ITS ---
FINAL REPORT CLINICAL HISTORY: dry cough, tightness in chest, soa COMPARISON: 10/24/2020 FINDINGS: Two views of the chest were obtained. The heart size and pulmonary vascularity are within normal limits. The mediastinum is normal. No acute pulmonary abnormality is identified. There is no pneumothorax. The bony thorax is intact. IMPRESSION: No active cardiopulmonary disease. Reviewed, Interpreted and Dictated by Paul Gupta III, MD Transcribed by Laurel Ackerman Authenticated and [facility]
== END ==
PROVIDERS: PCP Internal Medicine Adolescent Medicine; Visit Provider Student in an Organized Health Care Education/Training Program
DX: R05.9 Cough, unspecified (principal)
CPT/HCPCS: 71046

== ENCOUNTER → 2022-10-12 09:06 | Outpatient (CLI) | payer MEDICARE, BC, SELFPAY ==
[2022-10-12 11:03] LABS: Basophils # 0.1 K/mm3 (0-0.2); Basophils % 0.9 % (0.1-2.0); Eosinophils # 0.2 K/mm3 (0.0-0.4); Eosinophils % 2.3 % (0.1-12.0); Hematocrit 51.1 % (42.0-52.0); Hemoglobin 16.8 g/dL (14.1-18.0); Lymphocytes # 1.9 K/mm3 (0.7-4.5); Lymphocytes % 22.2 % (10-50); Mean Corpuscular HGB Conc 32.8 g/dL (31.8-35.4); Mean Corpuscular Volume 88.3 fl (80-94); Monocytes # 0.6 K/mm3 (0.1-1.0); Monocytes % 6.6 % (1.7-9.3); Neutrophils # 5.9 K/mm3 (1.8-7.8); Platelet Count 62 K/mm3 (142-424); Red Blood Count 5.79 M/mm3 (4.60-6.20); Red Cell Distribution Width 14.1 % (11.5-17.5); White Blood Count 8.7 K/mm3 (4.8-10.8)
[2022-10-12 11:27] LABS: Chloride 104 mmol/L (98-107)
[2022-10-12 11:28] LABS: Sodium 138 mmol/L (136-145)
[2022-10-12 11:31] LABS: Alanine Aminotransferase 25 U/L (12-78); Albumin Level 4.1 g/dl (3.5-5.0); Albumin/Globulin Ratio 1.6 (1.1-1.8); Alkaline Phosphatase 74 U/L (38-126); Aspartate Amino Transferase 30 U/L (17-59); Bilirubin,Total 0.7 mg/dl (0.2-1.3); Blood Urea Nitrogen 25 mg/dl (9-20); Carbon Dioxide 28 mmol/L (22.0-30.0); Estimated Glomerular Filt Rate 84 ml/min (>60); GFR (African American) 101 ML/MIN (>60); Globulin 2.6 g/dL (1.3-3.2); Glucose 95 mg/dl (74-100); Total Protein,Serum 6.7 g/dl (6.3-8.2)
[2022-10-13 07:08] LABS: CEA 2.4 ng/mL (0.0-4.7)
== END ==
PROVIDERS: PCP Internal Medicine Adolescent Medicine; Visit Provider Internal Medicine Medical Oncology
DX: C18.9 Malignant neoplasm of colon, unspecified (principal)
CPT/HCPCS: 36415; 80053; 82378; 85025

== ENCOUNTER → 2022-10-14 12:41 | Outpatient (CLI) | payer MEDICARE, BC, SELFPAY ==
--- NOTE | 2022-10-14 12:45 | CT_ITS ---
FINAL REPORT CLINICAL HISTORY: h/o COLON CANCER. yearly checkup COMPARISON: September 2021 FINDINGS: Before and after the administration of intravenous contrast, axial images through the chest were performed by computed tomography. This study was performed with techniques to keep radiation doses as low as reasonably achievable, (ALARA). Individualized dose reduction techniques using automated exposure control or adjustment of mA and/or kV according to the patient's size were employed. There is no axillary adenopathy. There are mildly enlarged mediastinal lymph nodes that are stable from the prior exam and could be reactive or neoplastic. Mildly enlarged hilar lymph nodes are stable. The heart size is normal. There is no pericardial or pleural effusion. Limited images of the upper abdomen are unremarkable. There are several noncalcified pulmonary nodules with the largest measuring up to 6 mm in the right lower lobe, stable from prior. There is mild atelectasis or scarring. No suspicious infiltrate or nodule identified. IMPRESSION: No new mass or pulmonary nodule. Stable findings. Reviewed, Interpreted and Dictated by Paul Gupta III, MD Transcribed by Faisal Walsh Authenticated and [facility]
== END ==
PROVIDERS: PCP Internal Medicine Adolescent Medicine; Visit Provider Internal Medicine Medical Oncology
DX: C18.9 Malignant neoplasm of colon, unspecified (principal)
CPT/HCPCS: 71270; Q9967

== ENCOUNTER → 2022-10-24 09:40 | Outpatient (CLI) | payer MEDICARE, BC, SELFPAY ==
[2022-10-24 10:22] LABS: Basophils # 0.1 K/mm3 (0-0.2); Basophils % 1.1 % (0.1-2.0); Eosinophils # 0.1 K/mm3 (0.0-0.4); Eosinophils % 2.4 % (0.1-12.0); Hematocrit 50.5 % (42.0-52.0); Hemoglobin 16.5 g/dL (14.1-18.0); Lymphocytes # 1.7 K/mm3 (0.7-4.5); Lymphocytes % 29.2 % (10-50); Mean Corpuscular HGB Conc 32.6 g/dL (31.8-35.4); Mean Corpuscular Hemoglobin 29.1 pg (27.0-31.2); Mean Corpuscular Volume 89.4 fl (80-94); Mean Platelet Volume 9.7 fl (7.4-10.4); Monocytes # 0.4 K/mm3 (0.1-1.0); Monocytes % 7.7 % (1.7-9.3); Neutrophils # 3.4 K/mm3 (1.8-7.8); Neutrophils % 59.6 % (37.0-80.0); Red Blood Count 5.66 M/mm3 (4.60-6.20); Red Cell Distribution Width 14.2 % (11.5-17.5); White Blood Count 5.7 K/mm3 (4.8-10.8)
[2022-10-24 10:28] LABS: Platelet Count 41 K/mm3 (142-424)
[2022-10-26 09:45] LABS: Peripheral Smear Review Scanned Result
== END ==
PROVIDERS: PCP Internal Medicine Adolescent Medicine; Visit Provider Internal Medicine Medical Oncology
DX: D69.6 Thrombocytopenia, unspecified (principal); C18.9 Malignant neoplasm of colon, unspecified
CPT/HCPCS: 36415; 85025

== ENCOUNTER → 2022-11-07 09:28 | Outpatient (CLI) | payer MEDICARE, BC, SELFPAY ==
--- NOTE | 2022-11-07 09:34 | CT_ITS ---
FINAL REPORT CLINICAL HISTORY: COLON CANCER COMPARISON: 06/15/2020 FINDINGS: 7 mm noncalcified nodule at the right base seen on image 6 of series 5 stable since 2019 and could be considered benign. The liver is normal in size and attenuation. Gallbladder is present. The spleen is unremarkable. The adrenals are normal. The pancreas is unremarkable. The kidneys enhance appropriately. Precontrast images demonstrate no nephrolithiasis. Postoperative changes from prior sigmoid anastomosis. There is a mild amount of stool in the colon. IMPRESSION: No significant mass or adenopathy identified. Reviewed, Interpreted and Dictated by Dangelo Chun MD Transcribed by Coty Olvera Authenticated and [facility]
== END ==
PROVIDERS: PCP Internal Medicine Adolescent Medicine; Visit Provider Internal Medicine Medical Oncology
DX: C18.9 Malignant neoplasm of colon, unspecified (principal)
CPT/HCPCS: 74178; Q9967

== ENCOUNTER 2022-11-08 13:14 | Outpatient (CLI) | payer MEDICARE, BC, SELFPAY ==
[2022-11-08 13:14] VITALS: BMI 32.1
[2022-11-08 14:23] LABS: Basophils # 0.1 K/mm3 (0-0.2); Basophils % 1.2 % (0.1-2.0); Eosinophils # 0.2 K/mm3 (0.0-0.4); Eosinophils % 2.5 % (0.1-12.0); Hematocrit 50.4 % (42.0-52.0); Hemoglobin 16.4 g/dL (14.1-18.0); Lymphocytes # 2.1 K/mm3 (0.7-4.5); Lymphocytes % 29.5 % (10-50); Mean Corpuscular HGB Conc 32.6 g/dL (31.8-35.4); Mean Corpuscular Hemoglobin 28.5 pg (27.0-31.2); Mean Corpuscular Volume 87.2 fl (80-94); Monocytes # 0.6 K/mm3 (0.1-1.0); Monocytes % 8.8 % (1.7-9.3); Neutrophils # 4.2 K/mm3 (1.8-7.8); Neutrophils % 57.9 % (37.0-80.0); Platelet Count 51 K/mm3 (142-424); Red Blood Count 5.78 M/mm3 (4.60-6.20); Red Cell Distribution Width 14.2 % (11.5-17.5); White Blood Count 7.2 K/mm3 (4.8-10.8)
--- NOTE | 2022-11-08 14:42 | PC.NURSE ---
PT CALLED TO COME IN TO GET REPEAT CBC TO CHECK ON PLATELETS; PLT WERE 51 AND RESULTS WERE CALLED TO MD; PT WILL FOLLOW UP IN ONE MONTH TO GET REPEAT LABS;
== END 2022-11-08 14:45 | disposition home or self-care (01) ==
LOC: INF 13:15
PROVIDERS: PCP Internal Medicine Adolescent Medicine; Visit Provider Internal Medicine Medical Oncology
DX: Z85.038 Personal history of other malignant neoplasm of large intestine (principal)
CPT/HCPCS: 36415; 85025

== ENCOUNTER → 2022-11-29 09:45 | Outpatient (CLI) | payer MEDICARE, BC, SELFPAY ==
[2022-11-29 09:50] VITALS: BMI 32.1
[2022-11-29 10:06] LABS: Basophils # 0.1 K/mm3 (0-0.2); Eosinophils # 0.2 K/mm3 (0.0-0.4); Eosinophils % 2.7 % (0.1-12.0); Hematocrit 48.5 % (42.0-52.0); Lymphocytes # 1.6 K/mm3 (0.7-4.5); Lymphocytes % 24.5 % (10-50); Mean Corpuscular Hemoglobin 29.6 pg (27.0-31.2); Mean Corpuscular Volume 89.8 fl (80-94); Mean Platelet Volume 10.1 fl (7.4-10.4); Monocytes # 0.4 K/mm3 (0.1-1.0); Monocytes % 6.1 % (1.7-9.3); Neutrophils # 4.4 K/mm3 (1.8-7.8); Neutrophils % 65.7 % (37.0-80.0); Red Cell Distribution Width 14.3 % (11.5-17.5); White Blood Count 6.6 K/mm3 (4.8-10.8)
[2022-11-29 10:22] LABS: Platelet Count 28 K/mm3 (142-424)
--- NOTE | 2022-11-29 10:34 | PC.NURSE ---
Nae Ellsworth called Mary Davey RN at 1022 to report platelet count 28. RN repeated and verified pt name, , and lab value. Result called to Dr. Navarrete, pt here for an appt today- no new orders noted.
== END ==
PROVIDERS: PCP Internal Medicine Adolescent Medicine; Visit Provider Internal Medicine Medical Oncology
DX: Z85.038 Personal history of other malignant neoplasm of large intestine (principal)
CPT/HCPCS: 36415; 85025

== ENCOUNTER 2022-12-09 09:23 | Outpatient (CLI) | payer MEDICARE, BC, SELFPAY ==
[2022-12-09 09:27] VITALS: BMI 32.5
[2022-12-09 09:48] LABS: Basophils % 0.1 % (0.1-2.0); Eosinophils # 0.3 K/mm3 (0.0-0.4); Eosinophils % 3.4 % (0.1-12.0); Hematocrit 50.2 % (42.0-52.0); Hemoglobin 16.6 g/dL (14.1-18.0); Lymphocytes # 1.4 K/mm3 (0.7-4.5); Lymphocytes % 15.2 % (10-50); Mean Corpuscular Hemoglobin 29.3 pg (27.0-31.2); Mean Corpuscular Volume 88.8 fl (80-94); Mean Platelet Volume 8.6 fl (7.4-10.4); Monocytes # 0.8 K/mm3 (0.1-1.0); Monocytes % 8.2 % (1.7-9.3); Neutrophils # 6.8 K/mm3 (1.8-7.8); Neutrophils % 73.1 % (37.0-80.0); Platelet Count 142 K/mm3 (142-424); Red Blood Count 5.65 M/mm3 (4.60-6.20); Red Cell Distribution Width 14.4 % (11.5-17.5); White Blood Count 9.4 K/mm3 (4.8-10.8)
== END 2022-12-09 09:40 | disposition home or self-care (01) ==
LOC: INF 09:24
PROVIDERS: PCP Internal Medicine Adolescent Medicine; Visit Provider Internal Medicine Medical Oncology
DX: D69.6 Thrombocytopenia, unspecified (principal)
CPT/HCPCS: 36415; 85025

== ENCOUNTER 2022-12-17 08:51 | Outpatient (CLI) | payer MEDICARE, BC, SELFPAY ==
[2022-12-17 08:54] VITALS: BMI 32.1
--- NOTE | 2022-12-17 09:03 | PC.NURSE ---
0903-collected labs via peripheral stick with butterfly needle in left ac;pt ok to d/c home will let know what platelet results are.
[2022-12-17 09:32] LABS: Alanine Aminotransferase 37 U/L (12-78); Albumin Level 3.7 g/dl (3.5-5.0); Albumin/Globulin Ratio 1.4 (1.1-1.8); Alkaline Phosphatase 72 U/L (38-126); Anion Gap 15.3 mEq/L (5-15); Aspartate Amino Transferase 37 U/L (17-59); Bilirubin,Total 0.5 mg/dl (0.2-1.3); Blood Urea Nitrogen 21 mg/dl (9-20); Calcium 8.9 mg/dl (8.4-10.2); Carbon Dioxide 23 mmol/L (22.0-30.0); Chloride 106 mmol/L (98-107); Creatinine Clearance Estimated 103 mL/min (50-200); Estimated Glomerular Filt Rate 96 ml/min (>60); GFR (African American) 116 ML/MIN (>60); Globulin 2.7 g/dL (1.3-3.2); Glucose 123 mg/dl (74-100); Potassium 4.3 mmoL/L (3.5-5.1); Sodium 140 mmol/L (136-145); Total Protein,Serum 6.4 g/dl (6.3-8.2)
[2022-12-17 09:37] LABS: Basophils # 0.1 K/mm3 (0-0.2); Basophils % 1.1 % (0.1-2.0); Eosinophils # 0.2 K/mm3 (0.0-0.4); Eosinophils % 2.5 % (0.1-12.0); Hemoglobin 16.6 g/dL (14.1-18.0); Lymphocytes # 1.2 K/mm3 (0.7-4.5); Lymphocytes % 20.5 % (10-50); Mean Corpuscular HGB Conc 31.9 g/dL (31.8-35.4); Mean Corpuscular Hemoglobin 29.1 pg (27.0-31.2); Monocytes # 0.5 K/mm3 (0.1-1.0); Monocytes % 8.3 % (1.7-9.3); Neutrophils # 4.1 K/mm3 (1.8-7.8); Neutrophils % 67.5 % (37.0-80.0); Platelet Count 89 K/mm3 (142-424); Red Blood Count 5.72 M/mm3 (4.60-6.20); Red Cell Distribution Width 14.3 % (11.5-17.5)
[2022-12-18 10:46] LABS: HBsAg Screen Negative (Negative); HCV Ab Non Reactive (Non Reactive); Hep A Ab, IGM Negative (Negative); Hep B Core Ab, IgM Negative (Negative)
== END 2022-12-17 09:05 | disposition home or self-care (01) ==
LOC: INF 08:51
PROVIDERS: PCP Internal Medicine Adolescent Medicine; Visit Provider Internal Medicine Medical Oncology
DX: D69.3 Immune thrombocytopenic purpura (principal); R53.1 Weakness
CPT/HCPCS: 36415; 80053; 80074; 85025

== ENCOUNTER 2022-12-19 08:02 | Outpatient (CLI) | payer MEDICARE, BC, SELFPAY ==
[2022-12-19] VITALS (17 sets, daily range): BP systolic 98–126; BP diastolic 62–77; PULSE 58–77; RESP 17–18; TEMP 36.6–37; O2SAT 94–98
== END 2022-12-19 13:25 | disposition home or self-care (01) ==
PROVIDERS: PCP Internal Medicine Adolescent Medicine; Visit Provider Internal Medicine Medical Oncology
DX: D69.3 Immune thrombocytopenic purpura (principal)
CPT/HCPCS: 96413; 96415; J9312

== ENCOUNTER 2022-12-26 09:42 | Outpatient (CLI) | payer MEDICARE, BC, SELFPAY ==
[2022-12-26 09:42] VITALS: BMI 32.1
--- NOTE | 2022-12-26 10:06 | INFXCTL.NOTE ---
1006-collected labs via venipuncture stick in left ac with butterfly needle;d/c and pt to oncology appointment.
[2022-12-26 10:22] LABS: Basophils # 0.1 K/mm3 (0-0.2); Basophils % 1.2 % (0.1-2.0); Eosinophils # 0.2 K/mm3 (0.0-0.4); Eosinophils % 3.5 % (0.1-12.0); Hematocrit 46.9 % (42.0-52.0); Hemoglobin 15.7 g/dL (14.1-18.0); Lymphocytes # 1.3 K/mm3 (0.7-4.5); Mean Corpuscular HGB Conc 33.5 g/dL (31.8-35.4); Mean Corpuscular Hemoglobin 29.2 pg (27.0-31.2); Mean Corpuscular Volume 87.2 fl (80-94); Monocytes # 0.7 K/mm3 (0.1-1.0); Monocytes % 10.7 % (1.7-9.3); Neutrophils # 4.1 K/mm3 (1.8-7.8); Neutrophils % 64.6 % (37.0-80.0); Platelet Count 142 K/mm3 (142-424); Red Blood Count 5.38 M/mm3 (4.60-6.20); Red Cell Distribution Width 14.1 % (11.5-17.5); White Blood Count 6.4 K/mm3 (4.8-10.8)
[2022-12-26 10:32] LABS: Chloride 104 mmol/L (98-107)
[2022-12-26 10:33] LABS: Potassium 4.6 mmoL/L (3.5-5.1); Sodium 138 mmol/L (136-145)
[2022-12-26 10:35] LABS: Alanine Aminotransferase 32 U/L (12-78); Alkaline Phosphatase 70 U/L (38-126); Aspartate Amino Transferase 38 U/L (17-59); Bilirubin,Total 0.7 mg/dl (0.2-1.3); Blood Urea Nitrogen 25 mg/dl (9-20); Creatinine Clearance Estimated 103 mL/min (50-200); Estimated Glomerular Filt Rate 84 ml/min (>60); GFR (African American) 101 ML/MIN (>60)
[2022-12-26 10:36] LABS: Albumin Level 3.7 g/dl (3.5-5.0); Albumin/Globulin Ratio 1.4 (1.1-1.8); Anion Gap 9.6 mEq/L (5-15); Calcium 8.8 mg/dl (8.4-10.2); Carbon Dioxide 29 mmol/L (22.0-30.0); Globulin 2.7 g/dL (1.3-3.2); Glucose 92 mg/dl (74-100); Total Protein,Serum 6.4 g/dl (6.3-8.2)
== END 2022-12-26 10:08 | disposition home or self-care (01) ==
LOC: INF 09:47
PROVIDERS: PCP Internal Medicine Adolescent Medicine; Visit Provider Internal Medicine Medical Oncology
DX: Z85.038 Personal history of other malignant neoplasm of large intestine (principal); D69.3 Immune thrombocytopenic purpura
CPT/HCPCS: 36415; 80053; 85025

== ENCOUNTER 2022-12-30 08:31 | Outpatient (CLI) | payer MEDICARE, BC, SELFPAY ==
[2022-12-30] VITALS (14 sets, daily range): BP systolic 98–131; BP diastolic 58–78; PULSE 51–66; RESP 18; TEMP 36.9; O2SAT 100
== END 2022-12-30 13:30 | disposition home or self-care (01) ==
LOC: INF 08:32
PROVIDERS: PCP Internal Medicine Adolescent Medicine; Visit Provider Internal Medicine Medical Oncology
DX: D69.3 Immune thrombocytopenic purpura (principal); Z85.038 Personal history of other malignant neoplasm of large intestine
CPT/HCPCS: 96413; 96415; J9312

== ENCOUNTER 2023-01-06 09:35 | Outpatient (CLI) | payer MEDICARE, BC, SELFPAY ==
[2023-01-06] VITALS (13 sets, daily range): BP systolic 93–107; BP diastolic 57–69; PULSE 56–67; RESP 18; TEMP 36.8; O2SAT 99; BMI 32.5
[2023-01-06 10:10] LABS: Chloride 110 mmol/L (98-107); Potassium 3.8 mmoL/L (3.5-5.1); Sodium 141 mmol/L (136-145)
[2023-01-06 10:11] LABS: Basophils # 0.1 K/mm3 (0-0.2); Basophils % 0.9 % (0.1-2.0); Eosinophils # 0.1 K/mm3 (0.0-0.4); Eosinophils % 1.8 % (0.1-12.0); Hematocrit 49.8 % (42.0-52.0); Hemoglobin 16.1 g/dL (14.1-18.0); Lymphocytes # 1.2 K/mm3 (0.7-4.5); Lymphocytes % 16.7 % (10-50); Mean Corpuscular HGB Conc 32.3 g/dL (31.8-35.4); Mean Corpuscular Hemoglobin 28.5 pg (27.0-31.2); Mean Corpuscular Volume 88.2 fl (80-94); Mean Platelet Volume 9.1 fl (7.4-10.4); Monocytes # 0.6 K/mm3 (0.1-1.0); Monocytes % 8.4 % (1.7-9.3); Neutrophils # 5.2 K/mm3 (1.8-7.8); Neutrophils % 72.1 % (37.0-80.0); Platelet Count 172 K/mm3 (142-424); Red Blood Count 5.65 M/mm3 (4.60-6.20); Red Cell Distribution Width 14.4 % (11.5-17.5); White Blood Count 7.2 K/mm3 (4.8-10.8)
[2023-01-06 10:13] LABS: Alanine Aminotransferase 34 U/L (12-78); Albumin Level 3.7 g/dl (3.5-5.0); Albumin/Globulin Ratio 1.4 (1.1-1.8); Alkaline Phosphatase 67 U/L (38-126); Anion Gap 10.8 mEq/L (5-15); Aspartate Amino Transferase 30 U/L (17-59); Bilirubin,Total 0.4 mg/dl (0.2-1.3); Blood Urea Nitrogen 23 mg/dl (9-20); Carbon Dioxide 24 mmol/L (22.0-30.0); Creatinine Clearance Estimated 104 mL/min (50-200); Estimated Glomerular Filt Rate 96 ml/min (>60); GFR (African American) 116 ML/MIN (>60); Globulin 2.6 g/dL (1.3-3.2); Total Protein,Serum 6.3 g/dl (6.3-8.2)
[2023-01-06 10:14] LABS: Calcium 8.4 mg/dl (8.4-10.2); Glucose 127 mg/dl (74-100)
== END 2023-01-06 14:15 | disposition home or self-care (01) ==
LOC: INF 09:38
PROVIDERS: PCP Internal Medicine Adolescent Medicine; Visit Provider Internal Medicine Medical Oncology
DX: D69.3 Immune thrombocytopenic purpura (principal)
CPT/HCPCS: 80053; 85025; 96413; 96415; J9312

== ENCOUNTER 2023-01-13 09:29 | Outpatient (CLI) | payer MEDICARE, BC, SELFPAY ==
[2023-01-13] VITALS (8 sets, daily range): BP systolic 100–116; BP diastolic 61–81; PULSE 58–71; RESP 18; TEMP 36.7; O2SAT 96–97; BMI 32.1
[2023-01-13 10:09] LABS: Basophils # 0.1 K/mm3 (0-0.2); Eosinophils # 0.1 K/mm3 (0.0-0.4); Eosinophils % 2.1 % (0.1-12.0); Hematocrit 49.3 % (42.0-52.0); Hemoglobin 15.9 g/dL (14.1-18.0); Lymphocytes % 14.5 % (10-50); Mean Corpuscular HGB Conc 32.2 g/dL (31.8-35.4); Mean Corpuscular Volume 89.9 fl (80-94); Mean Platelet Volume 8.8 fl (7.4-10.4); Monocytes # 0.6 K/mm3 (0.1-1.0); Monocytes % 8.4 % (1.7-9.3); Neutrophils # 5.1 K/mm3 (1.8-7.8); Platelet Count 128 K/mm3 (142-424); Red Blood Count 5.48 M/mm3 (4.60-6.20); Red Cell Distribution Width 14.5 % (11.5-17.5); White Blood Count 6.9 K/mm3 (4.8-10.8)
== END 2023-01-13 14:27 | disposition home or self-care (01) ==
LOC: INF 09:30
PROVIDERS: PCP Internal Medicine Adolescent Medicine; Visit Provider Internal Medicine Medical Oncology
DX: D69.3 Immune thrombocytopenic purpura (principal)
CPT/HCPCS: 85025; 96413; 96415; J9312

== ENCOUNTER → 2023-01-30 07:56 | Outpatient (CLI) | payer MEDICARE, BC, SELFPAY ==
[2023-01-30 08:11] VITALS: BMI 31.1
--- NOTE | 2023-01-30 08:19 | PC.NURSE ---
0815 Patient here for labs prior to apointment with Dr. Navarrete this am. CBC/CMP obtained per peripheral stick x1 to left AC with butterfly needle/per MANNY Walker. Patient tolerated well.
[2023-01-30 08:27] LABS: Basophils # 0.1 K/mm3 (0-0.2); Basophils % 1.2 % (0.1-2.0); Eosinophils # 0.3 K/mm3 (0.0-0.4); Eosinophils % 4.3 % (0.1-12.0); Hematocrit 48.3 % (42.0-52.0); Hemoglobin 15.7 g/dL (14.1-18.0); Lymphocytes # 1.3 K/mm3 (0.7-4.5); Lymphocytes % 21.4 % (10-50); Mean Corpuscular HGB Conc 32.5 g/dL (31.8-35.4); Mean Corpuscular Hemoglobin 29.3 pg (27.0-31.2); Mean Platelet Volume 8.5 fl (7.4-10.4); Monocytes # 0.7 K/mm3 (0.1-1.0); Neutrophils # 3.8 K/mm3 (1.8-7.8); Neutrophils % 61.1 % (37.0-80.0); Platelet Count 147 K/mm3 (142-424); Red Blood Count 5.37 M/mm3 (4.60-6.20); Red Cell Distribution Width 14.3 % (11.5-17.5); White Blood Count 6.2 K/mm3 (4.8-10.8)
[2023-01-30 08:50] LABS: Alanine Aminotransferase 31 U/L (12-78); Albumin/Globulin Ratio 1.5 (1.1-1.8); Alkaline Phosphatase 73 U/L (38-126); Anion Gap 11.1 mEq/L (5-15); Aspartate Amino Transferase 33 U/L (17-59); Bilirubin,Total 1.2 mg/dl (0.2-1.3); Blood Urea Nitrogen 26 mg/dl (9-20); Calcium 8.7 mg/dl (8.4-10.2); Carbon Dioxide 23 mmol/L (22.0-30.0); Chloride 107 mmol/L (98-107); Creatinine Clearance Estimated 103 mL/min (50-200); Estimated Glomerular Filt Rate 96 ml/min (>60); GFR (African American) 116 ML/MIN (>60); Globulin 2.6 g/dL (1.3-3.2); Glucose 94 mg/dl (74-100); Potassium 4.1 mmoL/L (3.5-5.1); Sodium 137 mmol/L (136-145); Total Protein,Serum 6.6 g/dl (6.3-8.2)
== END ==
PROVIDERS: PCP Internal Medicine Adolescent Medicine; Visit Provider Internal Medicine Medical Oncology
DX: D69.3 Immune thrombocytopenic purpura (principal)
CPT/HCPCS: 36415; 80053; 85025

== ENCOUNTER 2023-03-06 08:09 | Outpatient (CLI) | payer MEDICARE, BC, SELFPAY ==
[2023-03-06 08:15] VITALS: BMI 32.6
[2023-03-06 08:36] LABS: Basophils # 0.1 K/mm3 (0-0.2); Basophils % 0.9 % (0.1-2.0); Eosinophils # 0.7 K/mm3 (0.0-0.4); Eosinophils % 10.1 % (0.1-12.0); Hematocrit 51.3 % (42.0-52.0); Hemoglobin 17.2 g/dL (14.1-18.0); Lymphocytes # 1.2 K/mm3 (0.7-4.5); Mean Corpuscular HGB Conc 33.5 g/dL (31.8-35.4); Mean Corpuscular Hemoglobin 30.3 pg (27.0-31.2); Mean Corpuscular Volume 90.3 fl (80-94); Mean Platelet Volume 8.5 fl (7.4-10.4); Monocytes # 0.6 K/mm3 (0.1-1.0); Monocytes % 9.2 % (1.7-9.3); Neutrophils # 4.1 K/mm3 (1.8-7.8); Neutrophils % 61.8 % (37.0-80.0); Platelet Count 156 K/mm3 (142-424); Red Blood Count 5.68 M/mm3 (4.60-6.20); Red Cell Distribution Width 13.7 % (11.5-17.5); White Blood Count 6.7 K/mm3 (4.8-10.8)
[2023-03-06 08:44] LABS: Alanine Aminotransferase 32 U/L (12-78); Albumin Level 3.8 g/dl (3.5-5.0); Albumin/Globulin Ratio 1.5 (1.1-1.8); Alkaline Phosphatase 75 U/L (38-126); Anion Gap 13.1 mEq/L (5-15); Aspartate Amino Transferase 32 U/L (17-59); Bilirubin,Total 0.6 mg/dl (0.2-1.3); Blood Urea Nitrogen 26 mg/dl (9-20); Calcium 9.2 mg/dl (8.4-10.2); Carbon Dioxide 24 mmol/L (22.0-30.0); Chloride 106 mmol/L (98-107); Creatinine Clearance Estimated 105 mL/min (50-200); Estimated Glomerular Filt Rate 96 ml/min (>60); GFR (African American) 116 ML/MIN (>60); Globulin 2.6 g/dL (1.3-3.2); Glucose 142 mg/dl (74-100); Potassium 4.1 mmoL/L (3.5-5.1); Sodium 139 mmol/L (136-145); Total Protein,Serum 6.4 g/dl (6.3-8.2)
== END 2023-03-06 08:20 | disposition home or self-care (01) ==
LOC: INF 08:10
PROVIDERS: PCP Internal Medicine Adolescent Medicine; Visit Provider Internal Medicine Medical Oncology
DX: D69.3 Immune thrombocytopenic purpura (principal)
CPT/HCPCS: 36415; 80053; 85025

== ENCOUNTER 2023-04-22 11:18 | Emergency (ER) | payer MEDICARE, BC, SELFPAY ==
[2023-04-22 11:19] VITALS: BP 112/72; PULSE 64; RESP 18; TEMP 36.7; O2SAT 96; BMI 32.1
--- NOTE | 2023-04-22 11:22 | EXP.UTC ---
Discharge Plan Disposition Patient Disposition: Home, Self-Care Condition: Good Prescriptions Prescriptions: New ibuprofen [IBU] 800 mg tablet 800 mg PO Q8HP PRN (Reason: Moderate Pain) Qty: 30 0RF No Action atorvastatin 40 mg tablet 40 mg PO DAILY Jardiance 25 mg tablet 25 mg PO DAILY losartan 100 mg tablet 100 mg PO DAILY aspirin 81 MG tablet,delayed release (DR/EC) 81 mg PO DAILY Qty: 90 2RF metoprolol succinate 25 MG tablet extended release 24 hr 25 mg PO DAILY Qty: 90 2RF Referrals Follow up/Referrals: Braden Louis MD [Primary Care Provider] - See instructions Valentina Angel DPM [Staff Physician] - 04/29/23 9:30 am Activity Restrictions/Add. Instructions Additional Instructions/Restrictions: Rest the extremity, apply ice for 15 minutes as tolerated three or four times per day, Wear the rachel wrap for compression, Elevate the extremity as tolerated while you are resting. Take ibuprofen for pain. I sent in a prescription to your pharmacy. Follow up with Dr. Angel (podiatry). You have an appointment there for 04/29/2023 at 9:30 am. Follow up with your regular doctor. GO TO THE ER FOR ANY WORSENING SYMPTOMS Clinical Impressions Clinical Impression: Closed fracture of right distal fibula Instructions Patient Instructions: How to Use Crutches, How to Apply an Elastic Wrap on Ankle, Fibula Shaft Fracture Discharge ED Provider: Blaise Griggs [facility] – [place], [place] HPI General Stated complaint: AO10/14, Rt ankle pain Time Seen by Provider: 04/22/23 11:22 History of Present Illness Provider Complaint: He states that he twisted his right ankle and fell 2 days ago. Since then, he has had right ankle swelling, bruising, and pain. His pain is worse when he bears weight and walks on it. Related Data Home Medications Medication Instructions Recorded Confirmed atorvastatin 40 mg tablet 40 mg PO DAILY Cholesterol 02/25/22 04/22/23 losartan 100 mg tablet 100 mg PO DAILY bp 04/03/22 04/22/23 empagliflozin 25 mg tablet 25 mg PO DAILY 01/09/23 04/22/23 (Jardiance) Previous Rx's Medication Instructions Recorded aspirin 81 mg tablet,delayed 81 mg PO DAILY HEART HEALTH #90 10/25/20 release tabs metoprolol succinate 25 mg 25 mg PO DAILY Hypertension #90 10/25/20 tablet,extended release 24 hr tabs ibuprofen 800 mg tablet (IBU) 800 mg PO Q8HP PRN Moderate Pain 04/22/23 #30 tabs Allergies Allergy/AdvReac Type Severity Reaction Status Date / Time Penicillins Allergy Severe S-DIFF. Verified 04/22/23 12:21 BREATHING lisinopril AdvReac Intermediate cough Verified 04/22/23 12:21 ticagrelor [From Brilinta] AdvReac Intermediate dyspnea Verified 04/22/23 12:21 PFSH PFS Disclaimer: The information contained in this section may have been updated after the patient was seen, as this information can be updated by other users. Medical History Colon cancer Surgical History History of colon resection History of colonoscopy Family History Mother Family history of ovarian cancer Father Liver cancer Social History Smoking Status: Never smoker alcohol intake: never substance use type: denies use current occupational status: retired Travel in the last 8 weeks: None household members: spouse housing: house caffeine: No ROS Obtained: Yes All systems reviewed & no additional complaints except as documented Constitutional Constitutional: Denies chills and Denies fever(s) Eyes Eyes: Denies eye discharge ENT Ears, Nose, Mouth, and Throat: Denies dizziness, Denies otalgia and Denies sore throat Cardiovascular Cardiovascular: Denies chest pain Respiratory Respiratory: Denies shortness of breath, Denies chest congestion, Denies cough, Denies stridor
--- NOTE | 2023-04-22 11:39 | XR_ITS ---
FINAL REPORT CLINICAL HISTORY: fall x 3 days ago pain and swelling FINDINGS: Right tibia fibula Two views were obtained. There is an oblique fracture of the distal fibular metaphysis with 4 mm of lateral displacement of the distal fracture fragment. Plantar calcaneal spur is identified. There is soft tissue swelling. IMPRESSION: Fracture of the distal fibular metaphysis. Reviewed, Interpreted and Dictated by Paul Gupta III, MD Transcribed by India Escudero Authenticated and [facility]
--- NOTE | 2023-04-22 11:39 | XR_ITS ---
FINAL REPORT CLINICAL HISTORY: medial pain and swelling fall x 3 days ago FINDINGS: Right ankle Three views were obtained. There is an oblique fracture of the distal fibular metaphysis with 4 mm of lateral displacement of the distal fracture fragment. Plantar calcaneal spur is identified. There is soft tissue swelling. IMPRESSION: Fracture of the distal fibular metaphysis. Reviewed, Interpreted and Dictated by Paul Gupta III, MD Transcribed by India Escudero Authenticated and [facility]
--- NOTE | 2023-04-22 11:39 | XR_ITS ---
FINAL REPORT CLINICAL HISTORY: medial pain and swelling fall x 3 days ago FINDINGS: Right foot Three views were obtained. There is no acute fracture or dislocation. There are mild degenerative changes. Small plantar calcaneal spur is identified. No soft tissue abnormality is identified. IMPRESSION: No acute process. Reviewed, Interpreted and Dictated by Paul Gupta III, MD Transcribed by India Escudero Authenticated and [facility]
[2023-04-22 12:55] VITALS: BP 112/72; PULSE 64; RESP 18; TEMP 36.7; O2SAT 96
== END 2023-04-22 12:55 | disposition home or self-care (01) ==
PROVIDERS: Emergency Provider Nurse Practitioner Family; PCP Internal Medicine Adolescent Medicine
DX: S82.831A Other fracture of upper and lower end of right fibula, initial encounter for closed fracture (principal); Z85.038 Personal history of other malignant neoplasm of large intestine; W19.XXXA Unspecified fall, initial encounter
CPT/HCPCS: 73590; 73610; 73630; 99204; 99212; G0463

== ENCOUNTER → 2023-04-29 08:17 | Outpatient (CLI) | payer MEDICARE, BC, SELFPAY ==
--- NOTE | 2023-04-29 08:23 | XR_ITS ---
FINAL REPORT CLINICAL HISTORY: FRACTURE..sprain ankle last week COMPARISON: None FINDINGS: RIGHT ANKLE: Three views of the right ankle were obtained. There is an oblique fracture of the distal fibular metaphysis with 4 mm of displacement of the distal fragment. The joint spaces and mortise are intact. There is no soft tissue abnormality. A plantar calcaneal spur is present. IMPRESSION: Fracture of the distal fibular metaphysis as described. Reviewed, Interpreted and Dictated by Paul Gupta III, MD Transcribed by Fabiola Way Authenticated and [facility]
--- NOTE | 2023-04-29 08:23 | XR_ITS ---
FINAL REPORT CLINICAL HISTORY: FRACTURE..sprain ankle last week COMPARISON: None FINDINGS: RIGHT FOOT: Three views of the right foot were obtained. There is a oblique fracture of the distal fibular metaphysis, also seen on an ankle film of the same date. Plantar calcaneal spur is present along with mild hallux valgus deformity. Mild degenerative changes present as well. There is no soft tissue abnormality. IMPRESSION: Oblique fracture distal fibular metaphysis also seen on an ankle film of the same date. Mild hallux valgus deformity and plantar calcaneal spur. Reviewed, Interpreted and Dictated by Paul Gupta III, MD Transcribed by Fabiola Way Authenticated and [facility]
== END ==
PROVIDERS: PCP Internal Medicine Adolescent Medicine; Visit Provider Nurse Practitioner Family
DX: S82.831A Other fracture of upper and lower end of right fibula, initial encounter for closed fracture (principal)
CPT/HCPCS: 73610; 73630

== ENCOUNTER 2023-05-01 08:15 | Outpatient (CLI) | payer MEDICARE, BC, SELFPAY ==
[2023-05-01 08:21] VITALS: BMI 32.1
[2023-05-01 08:36] LABS: Basophils # 0.1 K/mm3 (0-0.2); Basophils % 0.7 % (0.1-2.0); Eosinophils # 0.3 K/mm3 (0.0-0.4); Eosinophils % 2.8 % (0.1-12.0); Hematocrit 49.6 % (42.0-52.0); Hemoglobin 16.8 g/dL (14.1-18.0); Lymphocytes # 1.3 K/mm3 (0.7-4.5); Mean Corpuscular HGB Conc 33.8 g/dL (31.8-35.4); Mean Corpuscular Volume 91.6 fl (80-94); Mean Platelet Volume 8.2 fl (7.4-10.4); Monocytes # 0.7 K/mm3 (0.1-1.0); Monocytes % 8.1 % (1.7-9.3); Neutrophils # 6.6 K/mm3 (1.8-7.8); Neutrophils % 74.4 % (37.0-80.0); Platelet Count 206 K/mm3 (142-424); Red Blood Count 5.42 M/mm3 (4.60-6.20); Red Cell Distribution Width 13.1 % (11.5-17.5); White Blood Count 8.9 K/mm3 (4.8-10.8)
== END 2023-05-01 08:24 | disposition home or self-care (01) ==
LOC: INF 08:16
PROVIDERS: PCP Internal Medicine Adolescent Medicine; Visit Provider Internal Medicine Medical Oncology
DX: Z85.038 Personal history of other malignant neoplasm of large intestine (principal)
CPT/HCPCS: 36415; 85025

== ENCOUNTER → 2023-05-13 10:21 | Outpatient (CLI) | payer MEDICARE, BC, SELFPAY ==
--- NOTE | 2023-05-13 10:25 | XR_ITS ---
FINAL REPORT CLINICAL HISTORY: Hx of fx in right ankle. Pain/swelling/bruising. FINDINGS: RIGHT ANKLE: Three views of the right ankle were obtained. Clearly displaced fracture of the lateral malleolus. There is lateral displacement of the distal fracture fragment. There is mild degenerative disease. There is soft tissue edema. IMPRESSION: Displaced lateral malleolus fracture. Reviewed, Interpreted and Dictated by Patience Garner MD Transcribed by Faisal Walsh Authenticated and [facility]
== END ==
PROVIDERS: PCP Internal Medicine Adolescent Medicine; Visit Provider Podiatrist
DX: S82.831A Other fracture of upper and lower end of right fibula, initial encounter for closed fracture (principal); S82.891A Other fracture of right lower leg, initial encounter for closed fracture
CPT/HCPCS: 73610

== ENCOUNTER → 2023-05-28 13:43 | Outpatient (CLI) | payer MEDICARE, BC, SELFPAY ==
--- NOTE | 2023-05-28 13:43 | CT_ITS ---
FINAL REPORT TECHNIQUE: Thin section axial CT images with coronal and sagittal reformats were performed. This study was performed with techniques to keep radiation doses as low as reasonably achievable (ALARA). Individualized dose reduction techniques using automated exposure control or adjustment of mA and/or kV according to the patient''s size were employed. CLINICAL HISTORY: Distal fib fracture, pain. slow to heal. FINDINGS: There is an oblique fracture of the distal fibular metaphysis with mild overlapping of the fracture fragments. There is no significant callus formation. There is calcification along the posterior border of the distal tibia, may represent a small fracture. There is a small plantar calcaneal spur. Lateral soft tissue swelling is seen. IMPRESSION: Fracture of the distal fibular metaphysis with no significant callus formation. Possible small fracture of the distal tibia. Reviewed, Interpreted and Dictated by Paul Gupta III, MD Transcribed by India Escudero Authenticated and [facility]
== END ==
PROVIDERS: PCP Internal Medicine Adolescent Medicine; Visit Provider Podiatrist
DX: S82.831G Other fracture of upper and lower end of right fibula, subsequent encounter for closed fracture with delayed healing (principal); S82.891K Other fracture of right lower leg, subsequent encounter for closed fracture with nonunion; Y99.9 Unspecified external cause status
CPT/HCPCS: 73700

== ENCOUNTER → 2023-06-02 12:15 | Outpatient (CLI) | payer MEDICARE, BC, SELFPAY ==
--- NOTE | 2023-06-02 12:36 | XR_ITS ---
FINAL REPORT CLINICAL HISTORY: preoperative exam. pt having foot surgery in 2 days. patient takes 2 types of blood pressure/ heart medication. denies cp, soa, cough. nonsmoker FINDINGS: There is no evidence of effusion or other pleural disease. The mediastinum has a normal appearance. The cardiac silhouette is unremarkable. IMPRESSION: Unremarkable chest exam. Reviewed, Interpreted and Dictated by Nehal Almanza MD Transcribed by India Escudero Authenticated and [facility]
[2023-06-02 12:56] LABS: Basophils # 0.1 K/mm3 (0-0.2); Eosinophils # 0.2 K/mm3 (0.0-0.4); Eosinophils % 2.9 % (0.1-12.0); Hematocrit 52.6 % (42.0-52.0); Hemoglobin 17.8 g/dL (14.1-18.0); Lymphocytes # 1.3 K/mm3 (0.7-4.5); Lymphocytes % 17.6 % (10-50); Mean Corpuscular HGB Conc 33.8 g/dL (31.8-35.4); Mean Corpuscular Hemoglobin 30.2 pg (27.0-31.2); Mean Corpuscular Volume 89.4 fl (80-94); Mean Platelet Volume 8.9 fl (7.4-10.4); Monocytes # 0.8 K/mm3 (0.1-1.0); Neutrophils # 4.9 K/mm3 (1.8-7.8); Neutrophils % 67.5 % (37.0-80.0); Platelet Count 236 K/mm3 (142-424); Red Blood Count 5.89 M/mm3 (4.60-6.20); Red Cell Distribution Width 13.6 % (11.5-17.5); White Blood Count 7.2 K/mm3 (4.8-10.8)
[2023-06-02 13:12] LABS: Alanine Aminotransferase 34 U/L (12-78); Albumin Level 4.3 g/dl (3.5-5.0); Albumin/Globulin Ratio 1.4 (1.1-1.8); Alkaline Phosphatase 79 U/L (38-126); Aspartate Amino Transferase 36 U/L (17-59); Bilirubin,Total 0.5 mg/dl (0.2-1.3); Blood Urea Nitrogen 25 mg/dl (9-20); Calcium 9.1 mg/dl (8.4-10.2); Carbon Dioxide 23 mmol/L (22.0-30.0); Chloride 106 mmol/L (98-107); Estimated Glomerular Filt Rate 96 ml/min (>60); GFR (African American) 116 ML/MIN (>60); Glucose 96 mg/dl (74-100); Sodium 137 mmol/L (136-145); Total Protein,Serum 7.3 g/dl (6.3-8.2)
[2023-06-08 00:07] LABS: 1,25 Dihydroxy Vitamin D 63 pg/mL (.); 1,25-Dihydroxy, Vitamin D-2 <10 pg/mL (.); 1,25-Dihydroxy, Vitamin D-3 63 pg/mL (.)
== END ==
PROVIDERS: PCP Internal Medicine Adolescent Medicine; Visit Provider Podiatrist
DX: M25.471 Effusion, right ankle (principal); S82.831A Other fracture of upper and lower end of right fibula, initial encounter for closed fracture; S82.891A Other fracture of right lower leg, initial encounter for closed fracture; Z86.39 Personal history of other endocrine, nutritional and metabolic disease; Z01.818 Encounter for other preprocedural examination; M25.571 Pain in right ankle and joints of right foot; E66.9 Obesity, unspecified; Z68.33 Body mass index [BMI] 33.0-33.9, adult
CPT/HCPCS: 71046; 80053; 82652; 85025

== ENCOUNTER → 2023-06-03 10:03 | Outpatient (CLI) | payer MEDICARE, BC, SELFPAY ==
--- NOTE | 2023-06-03 10:05 | CA_ITS ---
APPROVED REPORT EXAM: Comprehensive 2D, Doppler, and color-flow Echocardiogram Climatology Teacher: Angelica Jang RT(R) Ht: 5 ft 11 in Wt: 241lbs BSA: 2.28 BP: 144/74 mmHg Indications: CAD, pre op foot surgery, abn EKG, HTN, hyperlipidemia 2D Dimensions LVOT 2.06 cm (M/F) 1.5-2.5 LA Volume 40.40 mL LA Volume Index 17.72 mL/m2 (M/F) 16-34 M-Mode Dimensions RVDd 2.46 cm (0.9-2.6) LA Diam 3.32 cm (1.9-4.0) LVDd 4.13 cm (3.5-5.7) Ao Diam 2.97 cm (2.0-3.7) LVDs 3.07 cm (3.5-5.7) IVSd 0.80 cm (0.6-1.1) PWd 0.99 cm (0.6-1.1) EF (Teich) 51.00% FS 25.70% EDV (Teich) 75.50 mL ESV (Teich) 37.00 mL LV Diastology E Decel Time 260.00 (160-240 msec) E/A Ratio 0.8 MED E' 6.50 (< 7 cm/sec) E'/MED E' Ratio 10.49 (>14) LAT E' 7.30 (<10 cm/sec) E/LAT E' Ratio 9.34 (>14) Mitral Valve MV E Max Osman. 68.00 (40-130 cm/s) MV A Velocity 85.00 (40-130 cm/s) E/A Ratio 0.81 MV Decel. Time 260.00 (160-240 ms) MV PHT 76.00 ms Left Ventricle The left ventricle is normal size. The left ventricular systolic function is normal. The left ventricular ejection fraction is within the normal range. There is increased left ventricular wall thickness. There is normal LV segmental wall motion. Transmitral Doppler flow pattern suggests impaired LV relaxation. LVEF is 60%. Right Ventricle The right ventricle is mildly dilated. The right ventricular systolic function is normal. Atria The left atrium size is normal. The right atrium size is normal. The interatrial septum is not well-visualized. Aortic Valve The aortic valve is mildly thickened. There is no aortic valvular stenosis. No aortic regurgitation is present. Mitral Valve The mitral valve leaflets are mildly thickened. No evidence of mitral valve stenosis. Mild mitral regurgitation. Tricuspid Valve The tricuspid valve leaflets are thin and pliable. Trace tricuspid regurgitation. There is insufficient TR jet to estimate RVSP. Pulmonic Valve The pulmonary valve is normal in structure. Trace pulmonic regurgitation. Great Vessels The aortic root is normal in size. The ascending aorta is normal in size. The IVC is not well-visualized. Pericardium There is no pericardial effusion. Other Information Study Quality: Fair Conclusion Normal biventricular systolic function. Mild RV dilation. Mild MR. Electronically signed by : Trish Mirza MD 06/03/2023 23:10:21
--- NOTE | 2023-06-03 10:43 | NM_ITS ---
APPROVED REPORT Exam: Nuclear Stress Test Indication: cad, 1 stent, fm hx, pre-op clearance Patient Location: Outpatient Stress Tech: Marlene Dumont ME Tech:HECTOR Yo RT (R)(N)(M) Ht: 5 ft 11 in Wt: 235 lbs HR: 72 bpm BP: 141/85 mmHg BSA: 2.26 m2 Rhythm: NSR TID: 1.14 BMI: 32.7 History: cad, 1 stent, preop assessment Procedure: Patient received 0.4 mg of intravenous Lexiscan, resting heart rate 72 bpm, resting blood pressure 141/85 mmHg, with Lexiscan maximum heart rate achieved was 115 bpm which is % of the maximum predicted heart rate and blood pressure was 136/85 mmHg. With Lexiscan, patient denied any complaint of chest pain. Cardiac Stress and Resting SPECT Images: Cardiac Stress and Resting SPECT images were obtained using technetium 99m Myoview 30.1 mCi stress and 10.52 mCi at rest. Raw imaging demonstrates significant diaphragmatic overlap with the inferior border of the LV wall, particularly in the supine stress images. This may affect the diagnostic interpretation of the study findings. Resting and stress imaging in supine position demonstrate a medium sized, moderate, perfusion defect in the inferior LV wall. This is no longer visualized with prone stress imaging. Findings are suggestive of diaphragmatic attenuation. Gated imaging demonstrates normal global and regional LV systolic function. LVEF is calculated at 67%. Conclusion: Diaphragmatic attenuation is present. No definite fixed or reversible perfusion defects. Gated imaging demonstrates normal global and regional LV systolic function. LVEF is calculated at 67%. Electronically signed by : Trish Mirza MD 06/03/2023 23:20:49
--- NOTE | 2023-06-03 13:28 | CA_ITS ---
APPROVED REPORT Exam: Pharmacologic Technologist: Marlene Dumont Ht: 5 ft 11 in Wt: 241 lbs BSA: 2.28 m2 HR: 72 bpm BP: 141/85 mmHg Rhythm: NSR Indications: CAD, preop assessment Medical History Medications: Aspirin,,,,, Metoprolol,,,,, Vitamin D3,,,,, Losartan,,,,, Atorvastatin,,,,, Ibuprofen,,,,, JaRDiance,,,,, Stress Test Details Test: LEXISCAN HR Resting HR: 71 bpm Max Heart Rate (APMHR): 150 bpm Max HR Achieved: 117 bpm Target HR (85% APMHR): 128 bpm % of APMHR: 78 Recovery HR: 94 bpm BP Resting BP: 141.0/85.0 mmHg Max BP: 157.0/76.0 mmHg Recovery BP: 131.0/85.0 mmHg ECG Resting ECG: Sinus rhythm Stress ECG: No significant ST changes Arrhythmia: None Clinical Exercise duration: 04:00 min Highest Stage Achieved: Exercise capacity: 1.0 METs Stress ECG Conclusion Symptoms: Chest pressure, dyspnea Arrhythmias/Ectopy: None ST-T Changes: No significant ST changes Conclusion: Unremarkable Lexiscan stress test. Myoview images are reported separately. Test Summary REST . . . . . . . Resting REST 02:54 . . 71 . 141/ 85 . . Stage 1 . . . . . . . Myoview Injected Stage 1 01:00 . . 97 . . . . Stage 2 01:00 . . 115 . 116/ 75 . . Stage 3 01:00 . . 106 . 132/ 85 . . Stage 4 01:00 . . 103 . 140/ 83 . Stop exercise at 04:00 RECOVERY 01:00 . . 99 . 147/ 87 . . RECOVERY 02:00 . . 105 . 147/ 87 . . RECOVERY 03:00 . . 93 . 147/ 87 . . RECOVERY 04:00 . . 93 . 157/ 76 . . RECOVERY 04:18 . . 91 . 131/ 85 . . Electronically signed by : Trish Mirza MD 06/03/2023 23:12:12
== END ==
PROVIDERS: PCP Internal Medicine Adolescent Medicine; Visit Provider Nurse Practitioner
DX: E78.5 Hyperlipidemia, unspecified (principal); I10 Essential (primary) hypertension; I25.10 Atherosclerotic heart disease of native coronary artery without angina pectoris; R94.31 Abnormal electrocardiogram [ECG] [EKG]; Z01.810 Encounter for preprocedural cardiovascular examination; Z95.5 Presence of coronary angioplasty implant and graft
CPT/HCPCS: 78452; 93017; 93018; 93306; A9502; J2785

== ENCOUNTER 2023-06-04 12:44 | Day surgery (SDC) | payer MEDICARE, BC, SELFPAY ==
[2023-06-02 14:46] VITALS: BMI 32.8
[2023-06-04] VITALS (9 sets, daily range): BP systolic 114–141; BP diastolic 73–86; PULSE 80–92; RESP 14–20; TEMP 36.6–36.7; O2SAT 94–100
[2023-06-04] MEDS: LACTATED RINGERS 1000ML 1,000 ML 25 ML IV (13:10)
--- NOTE | 2023-06-04 15:24 | P.PNANES_ITS ---
[facility] Disclaimer: The information contained in this section may have been updated after the patient was seen, as this information can be updated by other users. Medical History CAD (coronary artery disease) Colon cancer HLD (hyperlipidemia) HTN (hypertension) Surgical History History of colon resection History of colonoscopy History of coronary artery stent placement Family History Mother Family history of ovarian cancer Father Liver cancer Social History (Updated 06/04/23 @ 13:08 by Aysha James RN) Smoking Status: Never smoker alcohol intake: never substance use type: denies use current occupational status: retired Travel in the last 8 weeks: None household members: spouse housing: house caffeine: No [facility] Anesthesia Checklist Patient Identification Patient Identification: Arm Band Structural Data Admitted From: Home Planned Operative Procedure/s: ORIF Right Ankle Consent for Planned Operative Procedure(s) Verified: Yes Verified Documents: Surgical Consent and History and Physical NPO Status Verified Time NPO: 00:00 Additional verifications Anesthesia Reactions: No Hx Blood Transfusions: No Blood Transfusion Reaction: No Airway Assessment Mallampati Score:: Class II C-Spine Mobility Assessed: Yes TMJ Mobility Assessed: Yes Dentition: Good Dentition Neurological Assessment Level of Consciousness: Awake and Alert Anesthesia Plan Anesthesia Risk discussed: Yes Anesthesia Plan: Verified ASA Class: III Anesthesia Type: General (with Popliteal/Adductor Canal Nerve Block. Risks/benefits explained. Pt verbalized understanding)
--- NOTE | 2023-06-04 15:31 | XR_ITS ---
PROCEDURE INFORMATION: Exam: XR Right Ankle Exam date and time: 06/04/2023 5:33 PM Age: 68 years old Clinical indication: Device placement; Joint fixation hardware; Prior surgery; Surgery date: Post-operative (0-2 days); Surgery type: Orif; Additional info: Post op ankle orif TECHNIQUE: Imaging protocol: Radiologic exam of the right ankle. Views: 3 or more views. COMPARISON: CR XR ANKLE RT 2V 06/04/2023 4:45 PM FINDINGS: Bones/joints: There is casting material in place which obscures fine bony and soft-tissue detail. Malleable sideplate and screws of the lateral malleolus. There is a plantar calcaneal enthesophyte. Soft tissues: There are surgical skin ondina in place. IMPRESSION: Postsurgical changes without acute injury or hardware abnormality.
[2023-06-04] MEDS: CLINDAMYCIN PHOSPHATE 900 MG in 0.9 % SODIUM CHLORIDE 50 ML 56 MG IV (15:45)
--- NOTE | 2023-06-04 16:53 | XR_ITS ---
FINAL REPORT CLINICAL HISTORY: RT ANKLE IN OR FINDINGS: FLUOROSCOPY LESS THAN 1 HOUR HISTORY: Fluoroscopy guidance. Fluoroscopic guidance was provided for right ankle ORIF. 2 spot films were obtained. A total of 0:35 minutes of fluoroscopy time were used. Total DAP: 2.21 mGy IMPRESSION: As above. Reviewed, Interpreted and Dictated by Dangelo Chun MD Transcribed by Coty Olvera Authenticated and [facility]
--- NOTE | 2023-06-04 17:07 | EXP.ANES.I ---
[facility] Anesthesia Record Part I Anesthesia Record I Intake, IV Amount: 1,000 Hydration: Adequate Estimated blood loss (mL): 5 Urine output (mL): 0 Blood Products used (#): none Blood Pressure: 133/78 SaO2: 99 Pulse Rate: 90 Airway Patency: Patent Respiratory Rate: 16 Temperature: 97.9 F Patient is:: Drowsy and Stable Stable to PACU at:: 17:00
--- NOTE | 2023-06-04 17:08 | EXP.OP.NOTE ---
Date of procedure: 06/04/23 Pre-op Diagnosis:: Right ankle fracture Non-union ankle fracture Post-op Diagnosis:: Same Procedure performed:: Right ankle ORIF Resection of non-union with allograft Surgeon:: Valentina Angel DPM PRECIPITATOR SUPERVISOR:: Salzaar Castillo Anesthesia: GETA and regional (right nerve block) Estimated blood loss (mL): 20 Clinical Note:: 68-year-old male with a history of ankle fracture that has not healed. Risk benefits of surgery and nonunion discussed with the patient. All questions answered patient agreed to proceed with surgery. See office note for details. Operative findings:: Distal fibula fracture with nonunion. No callus formation noted at the spiral oblique fracture site. Fracture unstable. Upon reduction of the fracture there was some comminution and brittle bone which did fragment. Bone graft utilized at the comminution and nonunion sites. No signs of infection. Operative note:: On this date and time patient was deemed an appropriate surgical candidate.Pre-op regional femoral and sciatic nerve block performed by anesthesia. With informed consent signed, the patient was taken to the operating theater. The patient was positioned supine. General anesthesia was induced. Tourniquet was applied to the right thigh. The lower extremity was prepped and draped in normal sterile fashion. IV Clinda given. Right Distal Fibula Fracture ORIF: Attention was directed to the lateral ankle where intra-op fluoroscopy was utilized to sara anatomical landmarks. A linear incision was made over the lateral ankle. Dissection was carried thru skin and subcutaneous tissue with care taken to maintain surgical hemostasis and safely retract neurovascular structures. Dissection was then carried thru deep fascia to bone. The peroneal tendons were visible posteriorly and laterally, and safely retracted during procedure. The fibula was clearly visualized and the fracture was identified. The bone was gapped. There was no callus formation noted at the lateral and central aspect of the fracture. Minimal callus with fibrotic scar tissue consistent with nonunion noted at the medial most aspect of the fracture. The fracture, fibrotic tissue and nonunion was debrided with a curette to the level of healthy bleeding bone. The wound was flushed with copious amounts of normal sterile saline. At this point reduction forceps were utilized compressing the distal spiral oblique fibula fracture. The most proximal aspect of the fracture did further crack and break up on reduction attempt. Intraoperative fluoroscopy was utilized to check pre-and post-reduction AP and lateral views. The fracture was then too communited and the bone was too brittle to fit a lag, intrafrag screw. Decision was then made to pack with the allograft bone at the nonunion site. A bridge plate technique was utilized. A [employer] medical anatomic locking plate was applied and temporarily fixed. Again x-ray was used to check the reduction and adequate reduction was noted with alignment of the ankle joint. 4 locking screws were utilized distally to secure the plate to the fibula. Clamp removed and fracture re-reduced. Intraoperative fluoroscopy was utilized once again to check position reduction it was deemed to be appropriate and stable. 3 locking screws were then inserted proximally to secure the plate to the proximal section of the fibula. An external stress test performed. No gross instability, medial clear space or syndesmotic widening. Negative anterior drawer. The wound was flushed with copious amounts normal sterile saline. Vicryl was then utilized to reapproximate the deep and subcutaneous layer in a running fashion. Viaflow was then inserted into the incision and at the fracture site. Skin ondina were used to close the skin. The tourniquet was deflated at 50 minutes and immediate hyperemic response was noted to the digits. The wounds were cleansed. Xeroform, dry sterile dressing was then applied followed by a below knee modifed Ackerman posterior splint. The patient was awoken from anesthesia and transfer to recovery with vital signs stable and neurovascular status intact. Materials: [employer] anatomic distal fibula locking plate, TinyTap locking screws x 7, Tensix x1 (5cc), Viaflow Discharge/Plan: Patient is to maintain splint clean dry and intact. Polar pack/ice behind the knee and elevate on foam ramp or two pillows. Non weight bearing with crutches and walker. Obtain post op films, 3 views ankle. Follow up in one week. Tourniquet time (min): 50 Condition: stable Disposition: same day Complications:: None
--- NOTE | 2023-06-05 08:24 | P.PNANES_ITS ---
[facility] Anesthesia Record Part II Anesthesia Record Part II Discharge Time: 17:30 Destination: Surgical Day Care (OP Surgery) PACU nurse assessment reviewed?: Yes Patient Condition:: Good Anesthesia Complications:: None Swallowing reflex intact?: Yes Airway Patency: Patent Cyanosis?: No Blood Pressure: 114/75 SaO2: 98 Respiratory Rate: 18 Pulse Rate: 87 Temperature: 98 F Mental Status: Alert & Oriented Pain level:: 0 Nausea and/or vomitting:: None Intake, IV Amount: 0 Hydration: Adequate
[2023-06-05 08:25] VITALS: BP 114/75; PULSE 87; RESP 18; TEMP 36.6; O2SAT 98
== END 2023-06-04 18:01 | disposition home or self-care (01) ==
PROVIDERS: PCP Internal Medicine Adolescent Medicine; Visit Provider Podiatrist
PROC: (CPT 27792; principal; 2023-06-04 14:15)
DX: S82.61XA Displaced fracture of lateral malleolus of right fibula, initial encounter for closed fracture (principal); I25.10 Atherosclerotic heart disease of native coronary artery without angina pectoris; W10.8XXA Fall (on) (from) other stairs and steps, initial encounter; I25.2 Old myocardial infarction; I10 Essential (primary) hypertension; E78.5 Hyperlipidemia, unspecified; Z95.5 Presence of coronary angioplasty implant and graft; Z79.899 Other long term (current) drug therapy; M25.471 Effusion, right ankle; E55.9 Vitamin D deficiency, unspecified
CPT/HCPCS: 27792; 73600; 73610; 76000; 96374; C1713; C1762; C1776; J2405

== ENCOUNTER → 2023-06-26 07:45 | Outpatient (CLI) | payer MEDICARE, BC, SELFPAY ==
--- NOTE | 2023-06-26 07:51 | XR_ITS ---
FINAL REPORT CLINICAL HISTORY: 3 weeks Post op. COMPARISON: 06/04/2023 FINDINGS: RIGHT ANKLE 3 views of the right ankle were obtained. The cast has been removed since the prior examination. A side plate and screws are once again noted bridging the distal fibular fracture. There is no acute fracture or dislocation. The mortise is intact. Visualized joint spaces are normally aligned. Soft tissues are unremarkable. IMPRESSION: ORIF distal right fibular fracture, stable since the prior exam of June 04. Reviewed, Interpreted and Dictated by Dangelo Chun MD Transcribed by Fabiola Way Authenticated and [facility]
== END ==
PROVIDERS: PCP Internal Medicine Adolescent Medicine; Visit Provider Podiatrist
DX: Z98.890 Other specified postprocedural states (principal)
CPT/HCPCS: 73610

== ENCOUNTER 2023-07-14 10:30 | Outpatient (CLI) | payer MEDICARE, BC, SELFPAY ==
--- NOTE | 2023-07-14 10:41 | XR_ITS ---
FINAL REPORT CLINICAL HISTORY: Ankle Pain broke ankle in April 2023 FINDINGS: RIGHT ANKLE 3 views of the right ankle were obtained. There is a fracture of the lateral malleolus with postoperative changes of ORIF. There are mild degenerative changes. There is a plantar calcaneal spur. Soft tissue swelling is noted. IMPRESSION: Fracture of the lateral malleolus with postoperative changes of ORIF. Reviewed, Interpreted and Dictated by Paul Gupta III, MD Transcribed by Jessy Oliva Authenticated and [facility]
== END 2023-07-14 23:59 ==
LOC: RAD 10:33
PROVIDERS: PCP Internal Medicine Adolescent Medicine; Visit Provider Podiatrist
DX: G89.18 Other acute postprocedural pain (principal); M25.571 Pain in right ankle and joints of right foot
CPT/HCPCS: 73610

== ENCOUNTER 2023-07-24 12:58 | Outpatient (CLI) | payer MEDICARE, BC, SELFPAY ==
--- NOTE | 2023-07-24 13:00 | XR_ITS ---
FINAL REPORT CLINICAL HISTORY: right ankle fracture Apr 19 surgery COMPARISON: 02/2024 FINDINGS: LEFT ANKLE: Three views of the left ankle were obtained. There are postoperative changes in the lateral malleolus with spur plate and screws. Fracture line of the lateral malleolus again noted. The joint spaces and mortise are intact. Plantar calcaneal spur is noted. There is soft tissue swelling. IMPRESSION: Postoperative changes with intact hardware. Fracture line lateral malleolus again noted. Reviewed, Interpreted and Dictated by Paul Gupta III, MD Transcribed by Coty Olvera Authenticated and [facility]
== END 2023-07-24 23:59 ==
LOC: RAD 12:59
PROVIDERS: PCP Internal Medicine Adolescent Medicine; Visit Provider Podiatrist
DX: S82.831A Other fracture of upper and lower end of right fibula, initial encounter for closed fracture (principal); S82.891A Other fracture of right lower leg, initial encounter for closed fracture; M25.571 Pain in right ankle and joints of right foot
CPT/HCPCS: 73610

== ENCOUNTER 2023-07-30 08:28 | Outpatient (CLI) | payer MEDICARE, BC, SELFPAY ==
[2023-07-30 08:34] VITALS: BMI 32.8
[2023-07-30 08:56] LABS: Basophils # 0.1 K/mm3 (0-0.2); Eosinophils # 0.3 K/mm3 (0.0-0.4); Eosinophils % 3.4 % (0.1-12.0); Hematocrit 50.3 % (42.0-52.0); Hemoglobin 17.2 g/dL (14.1-18.0); Lymphocytes # 1.3 K/mm3 (0.7-4.5); Lymphocytes % 15.5 % (10-50); Mean Corpuscular HGB Conc 34.3 g/dL (31.8-35.4); Mean Corpuscular Hemoglobin 31.2 pg (27.0-31.2); Mean Platelet Volume 8.8 fl (7.4-10.4); Monocytes # 0.6 K/mm3 (0.1-1.0); Monocytes % 7.5 % (1.7-9.3); Neutrophils # 6.2 K/mm3 (1.8-7.8); Neutrophils % 72.5 % (37.0-80.0); Platelet Count 166 K/mm3 (142-424); Red Blood Count 5.53 M/mm3 (4.60-6.20); Red Cell Distribution Width 14.8 % (11.5-17.5); White Blood Count 8.6 K/mm3 (4.8-10.8)
--- NOTE | 2023-07-30 09:04 | PC.NURSE ---
0840 Labs obtained as ordered, CBC, CMP, CEA via venipuncture to R AC x1 stick with butterfly needle. Patient has appointment with Dr. Perez this am.
[2023-07-30 09:08] LABS: Alanine Aminotransferase 27 U/L (12-78); Albumin Level 4.1 g/dl (3.5-5.0); Albumin/Globulin Ratio 1.5 (1.1-1.8); Alkaline Phosphatase 89 U/L (38-126); Anion Gap 12.3 mEq/L (5-15); Aspartate Amino Transferase 31 U/L (17-59); Bilirubin,Total 0.8 mg/dl (0.2-1.3); Blood Urea Nitrogen 19 mg/dl (9-20); Calcium 8.9 mg/dl (8.4-10.2); Carbon Dioxide 26 mmol/L (22.0-30.0); Chloride 104 mmol/L (98-107); Creatinine Clearance Estimated 104 mL/min (50-200); Estimated Glomerular Filt Rate 96 ml/min (>60); GFR (African American) 116 ML/MIN (>60); Globulin 2.7 g/dL (1.3-3.2); Glucose 123 mg/dl (74-100); Potassium 4.3 mmoL/L (3.5-5.1); Sodium 138 mmol/L (136-145); Total Protein,Serum 6.8 g/dl (6.3-8.2)
== END 2023-07-30 23:59 ==
LOC: INF 08:30
PROVIDERS: PCP Internal Medicine Adolescent Medicine; Visit Provider Internal Medicine Medical Oncology
DX: C18.9 Malignant neoplasm of colon, unspecified (principal); D69.3 Immune thrombocytopenic purpura
CPT/HCPCS: 36415; 80053; 82378; 85025

== ENCOUNTER 2023-08-18 10:07 | Outpatient (CLI) | payer MEDICARE, BC, SELFPAY ==
--- NOTE | 2023-08-18 10:12 | XR_ITS ---
FINAL REPORT CLINICAL HISTORY: Right ankle ORIF COMPARISON: 07/24/2023 FINDINGS: LEFT ANKLE: Three views of the left ankle were obtained. There are postoperative changes in the lateral malleolus with a subacute lateral malleolus fracture. There is mild degenerative change. Plantar calcaneal spur is noted. There is soft tissue swelling. IMPRESSION: Stable postoperative and degenerative changes as above. Reviewed, Interpreted and Dictated by Paul Gupta III, MD Transcribed by Coty Olvera Authenticated and . [facility]
== END 2023-08-18 23:59 ==
LOC: RAD 10:08
PROVIDERS: PCP Internal Medicine Adolescent Medicine; Visit Provider Podiatrist
DX: Z47.1 Aftercare following joint replacement surgery (principal); Z96.661 Presence of right artificial ankle joint
CPT/HCPCS: 73610

== ENCOUNTER 2023-08-21 13:00 | Outpatient (RCR) | payer MEDICARE, BC, SELFPAY ==
--- NOTE | 2023-07-24 14:54 | HMH.PTOPEV ---
PT Outpatient Evaluation Rehab PT Outpatient Evaluation Start: 07/24/23 14:28 Freq: Status: Active Protocol: Document 07/24/23 14:28 CHRISTOS (Rec: 07/24/23 14:54 CHRISTOS [id number]) E-signed By Bear Rosado, PT Outpatient Therapy Subjective History Subjective History Pt reports injury to right ankle/lower leg on 04/19/23, xray confirmed distal right fibula fx. Pt reports using walking boot for ~ 6 weeks, ' but fracture didn't heal so I had surgery.' Pt underwent right distal fibula ORIF sx. on 06/04/23. Pt reports no pain in right ankle, chronic swelling since initial injury, stiffness, and weakness. PMH: decreased sensation in bilateral-previous chemo side effect New diagnosis of cancer in past 12 No months? Chief Complaint Stiff,Swelling,Weakness Symptom Type Other Symptoms Relieved By Rest/Positioning,Elevation Symptoms Aggravated By Standing,Walking Prior Functional Limitations Housework,Standing,Walking Current Functional Limitations Housework,Standing,Walking Level of pain today (0-10) 0 Pain scale - at its best (0-10) 0 Pain scale - at its worst (0-10) 0 Ankle/Foot Eval Gait Observation General Gait Pattern Observation Wide Based Gait,Shuffling Step Palpation Tenderness right Ankle/Foot Palpation Findings None/Normal ROM Ankle/Foot Dorsiflexion w/Knee Extended 0-10 Active Range Motion (degrees) Ankle/Foot Plantar Flexion Active Range 0-10 of Motion (degrees) Ankle/Foot Eversion Active Range of 0-20 Motion (degrees) Ankle/Foot Inversion Active Range of 0-15 Motion (degrees) Ankle/Foot ROM Limitations Soft Tissue Tightness MMT Ankle Dorsiflexion Strength Grade 4 Good Ankle Plantarflexion Strength Grade 4 Good Foot Eversion Strength Grade 4 Good Foot Inversion Strength Grade 4 Good Lower Extremity Functional Index Activities Today, do you or would you have any difficulty at all with: a.Any of your usual work, housework or No difficulty school activities b. Your usual hobbies, recreational or No difficulty sporting activities c. Getting into or out of the bath A little bit of difficulty d. Walking between rooms No difficulty e. Putting on your shoes or socks A little bit of difficulty f. Squatting Moderate difficulty g. Lifting an object, like a bag of No difficulty groceries from the floor h. Performing light activities around No difficulty your home i. Performing heavy activities around No difficulty your home j. Getting into or out of a car No difficulty k. Walking 2 blocks A little bit of difficulty l. Walking a mile A little bit of difficulty m. Going up or down 10 stairs (about 1 A little bit of difficulty flight of stairs) n. Standing for 1 hour A little bit of difficulty o. Sitting for 1 hour No difficulty p. Running on even ground Extreme difficulty or unable to perform activity q. Running on uneven ground Extreme difficulty or unable to perform activity r. Making sharp turns while running fast Extreme difficulty or unable to perform activity s. Hopping Extreme difficulty or unable to perform activity t. Rolling over in bed No difficulty LEFI Score Lower Extremity Functional Index Score 56 Outpatient Therapy Assessment Impairments Problems/Impairmments Palpation Tenderness,Impaired Range of Motion,Impaired Strength,Impaired Gait Pattern ,Impaired Walking,Impaired Standing,Impaired Household Care,Impaired Stair Climbing, Increased Edema,Subjective C/O Pain,Impaired Self Care/Self Management Prognosis Rehab Potential Good Clinical Impression Consistent with Diagnosis Yes Short Term Goals Number of Weeks 4 Increase Range of Motion Yes: 50-75% of WFL RIGHT ANKLE AROM Increase Strength Yes: 4+/5 RIGHT ANKLE Improve Gait Pattern with Assistive Yes: WFL W/LACE UP BRACE Device Increase Ability to Walk Yes: 30MIN Increase Ability to Stand Yes: 30MIN Improve Ability For Household Care Yes: WFL Improve LEFI Score Yes: 60-65 Patient to be Ind w/ HEP 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 Number of Weeks 6-8 Increase Range of Motion Yes: WFL RIGHT ANKLE AROM Increase Strength Yes: 5/5 RIGHT LE/ANKLE Improve Gait Pattern without Assistive Yes: WFL ON LEVEL AND UNLEVEL Device TERRAIN Increase Ability to Walk Yes: 60MIN Increase Ability to Stand Yes: 60MIN 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 Improve LEFI Score Yes: 70-75 Decrease Edema Yes: WFL RLE Decrease Subjective C/O Pain Yes: 0/10 W/ABOVE ACTIVITIES Patient to be Ind w/ Advanced HEP Yes Outpatient Therapy Plan of Care Treatment Plan May Include Therapeutic Exercise Including Home Yes Exercise Program Manual Therapy Techniques Yes Neuromuscular Re-education Yes Therapeutic Activities to Return to Yes Previous Functional/Work Level Gait Training Yes ADL/Self Care Education Yes Thermal Modalities Yes Electrical Stimulation Yes Ultrasound/Phonophoresis Yes Iontophoresis Yes Orthotics/Bracing/Splinting Yes Vasopneumatic Compression Pump Yes Manual Lymphatic Drainage Yes Eval/Re-Eval Yes Frequency Times per week 2-3 Duration Number of Weeks 6-8 Addendums This patient is a candidate for social No or vocational rehab? Patient/Guardian verbally acknowledges Yes understanding of treatment program and consents to further treatment? Patient/Guardian verbally acknowledges Yes understanding of diagnosis, prognosis and goals for treatment? Eval Complexity PT Charges 20806 - Moderate Complexity Shoulder/Elbow Eval Shoulder Objective Measurements Elbow Objective Measurements PHYSICIAN CERTIFICATION: I certify the specified therapy services for Tesfaye Ackerman are required, authorized, and reviewed every 30 days.
== END 2023-08-21 14:20 | disposition home or self-care (01) ==
LOC: PT 13:00
PROVIDERS: PCP Internal Medicine Adolescent Medicine; Visit Provider Podiatrist
DX: M25.571 Pain in right ankle and joints of right foot (principal); M79.605 Pain in left leg; Z98.890 Other specified postprocedural states; G89.18 Other acute postprocedural pain; S82.831A Other fracture of upper and lower end of right fibula, initial encounter for closed fracture
CPT/HCPCS: 97010; 97014; 97016; 97110; 97112; 97140; 97163; 97530; 97535; G0283

== ENCOUNTER 2023-09-10 08:00 | Outpatient (RCR) | payer MEDICARE, BC, SELFPAY ==
--- NOTE | 2023-08-27 11:33 | HMH.PTOPWND ---
Rehab Outpt Wound Evaluation Rehab OP Wound Evaluation Start: 08/27/23 11:26 Freq: Status: Active Protocol: Document 08/27/23 11:28 JOSE (Rec: 08/27/23 11:33 PHODEREJE [id number]) E-signed By Jonathan Quintero, PT Subjective/History History History This is the initial PT eval for Tesfaye Ackerman, 68 yowm who presents with prolonged R LE edema after ORIF of R ankle performed ~ 3 mos ago. He reports slow healing of the bone with original injury ~ 6 mos ago, but surgery was only required after conservative management failed. He reports he wears his lace-up ankle brace as instructed by the MD, but this does increase the edema above and below the brace. He reports no pain or numbness/tingling at this time . Subjective Subjective 2+ pitting edema with doughy edema in certain areas noted during palpation. New diagnosis of cancer in past 12 No months? Lymphedema Eval Classification of Lymphedema Secondary Lymphedema Yes Post-Surgical Lymphedema Yes Stemmer's sign Stemmer's Sign yes Stage of Lymphedema Lymphedema stages Stage I (Pitting edema, reduces w/ elevation, no fibrosis) Skin Changes Dry Skin Yes Discoloration of Skin Yes Other Changes Yes Affected Extremities Areas Affected by Lymphedema/Edema Right Lower Extremity Manual Lymphatic Drainage Treatment Area MLD Treatment Area Right Lower Extremity Wound Problems/Impairments Impairments Problems/Impairmments Impaired Endurance,Impaired Walking,Impaired Standing, Impaired Household Care, Impaired Recreational Activities,Increased Edema, Lymphedema Present,Impaired Self Care/Self Management Prognosis Rehab Potential Good Clinical Impression Consistent with Diagnosis Yes Short Term Goals Number of Weeks 2 Decrease Edema Yes: 1+ pitting edema R LE Patient to Understand Lymphedema Yes Treatment and Exercises Decrease Girth Measurments by (cm) Yes: R LE total by 3 cm Intermediate Goals Number of Weeks 4 Decrease Edema Yes: no pitting edema R LE Decrease Lymphedema Yes: No doughy edema R LE Patient to be Ind w/ HEP Yes Patient to be Ind w/ Donning/Panther Burn Yes Compression Garments Patient to Adhere Lymphedema Precautions Yes Decrease Girth Measurments by (cm) Yes: R LE total by 10 cm Outpatient Therapy Plan of Care Treatment Plan May Include Therapeutic Exercise Including Home Yes Exercise Program Manual Therapy Techniques Yes Neuromuscular Re-education Yes Therapeutic Activities to Return to Yes Previous Functional/Work Level ADL/Self Care Education Yes Orthotics/Bracing/Splinting Yes Vasopneumatic Compression Pump Yes Manual Lymphatic Drainage Yes Eval/Re-Eval Yes Frequency Times per week 2 Duration Number of Weeks 4 Addendums This patient is a candidate for social No or vocational rehab? Patient/Guardian verbally acknowledges Yes understanding of treatment program and consents to further treatment? Patient/Guardian verbally acknowledges Yes understanding of diagnosis, prognosis and goals for treatment? Eval Complexity PT Charges 71453 - High Complexity PHYSICIAN CERTIFICATION: I certify the specified therapy services for Tesfaye Ackerman are required, authorized, and reviewed every 30 days.
== END 2023-09-10 08:05 | disposition home or self-care (01) ==
LOC: PT 08:00
PROVIDERS: PCP Internal Medicine Adolescent Medicine; Visit Provider Podiatrist
DX: I89.0 Lymphedema, not elsewhere classified (principal)
CPT/HCPCS: 97140; 97163

== ENCOUNTER 2023-10-17 08:51 | Outpatient (CLI) | payer MEDICARE, BC, SELFPAY ==
[2023-10-17 09:07] VITALS: BMI 33.9
[2023-10-17 09:18] LABS: Basophils # 0.1 K/mm3 (0-0.2); Basophils % 1.6 % (0.1-2.0); Eosinophils # 0.2 K/mm3 (0.0-0.4); Eosinophils % 3.1 % (0.1-12.0); Hematocrit 53.1 % (42.0-52.0); Hemoglobin 17.1 g/dL (14.1-18.0); Lymphocytes # 1.4 K/mm3 (0.7-4.5); Lymphocytes % 19.1 % (10-50); Mean Corpuscular HGB Conc 32.1 g/dL (31.8-35.4); Mean Corpuscular Hemoglobin 30.1 pg (27.0-31.2); Mean Corpuscular Volume 93.9 fl (80-94); Mean Platelet Volume 8.9 fl (7.4-10.4); Monocytes # 0.5 K/mm3 (0.1-1.0); Monocytes % 7.6 % (1.7-9.3); Neutrophils # 4.8 K/mm3 (1.8-7.8); Neutrophils % 68.6 % (37.0-80.0); Platelet Count 164 K/mm3 (142-424); Red Blood Count 5.66 M/mm3 (4.60-6.20); Red Cell Distribution Width 14.2 % (11.5-17.5); White Blood Count 7.1 K/mm3 (4.8-10.8)
[2023-10-17 09:27] LABS: Chloride 106 mmol/L (98-107); Potassium 4.2 mmoL/L (3.5-5.1); Sodium 138 mmol/L (136-145)
[2023-10-17 09:29] LABS: Blood Urea Nitrogen 23 mg/dl (9-20); Creatinine Clearance Estimated 107 mL/min (50-200); Estimated Glomerular Filt Rate 83 ml/min (>60); GFR (African American) 101 ML/MIN (>60)
[2023-10-17 09:30] LABS: Alanine Aminotransferase 31 U/L (12-78); Albumin Level 3.9 g/dl (3.5-5.0); Albumin/Globulin Ratio 1.5 (1.1-1.8); Alkaline Phosphatase 87 U/L (38-126); Anion Gap 7.2 mEq/L (5-15); Aspartate Amino Transferase 36 U/L (17-59); Bilirubin,Total 0.9 mg/dl (0.2-1.3); Calcium 9.4 mg/dl (8.4-10.2); Carbon Dioxide 29 mmol/L (22.0-30.0); Globulin 2.6 g/dL (1.3-3.2); Glucose 130 mg/dl (74-100); Total Protein,Serum 6.5 g/dl (6.3-8.2)
[2023-10-18 10:17] LABS: CEA 2.3 ng/mL (0.0-4.7)
== END 2023-10-17 09:11 | disposition home or self-care (01) ==
LOC: INF 08:52
PROVIDERS: PCP Internal Medicine Adolescent Medicine; Visit Provider Internal Medicine Medical Oncology
DX: Z85.038 Personal history of other malignant neoplasm of large intestine (principal); D12.6 Benign neoplasm of colon, unspecified
CPT/HCPCS: 36415; 80053; 82378; 85025

== ENCOUNTER 2023-10-20 09:42 | Outpatient (CLI) | payer MEDICARE, BC, SELFPAY ==
--- NOTE | 2023-10-20 09:45 | XR_ITS ---
FINAL REPORT CLINICAL HISTORY: Right ankle pain FINDINGS: RIGHT ANKLE 3 views of the right ankle were obtained. There is a sideplate and screw securing a healed fracture deformity of the distal fibula. A small plantar spur is noted. There are hypertrophic changes along the posterior aspect of the distal fibula. The mortise is intact. No acute fracture is identified. IMPRESSION: Postoperative and degenerative changes with no acute bony abnormality. Reviewed, Interpreted and Dictated by Dangelo Chun MD Transcribed by Yanira Morrow Authenticated and [facility]
== END 2023-10-20 23:59 ==
LOC: RAD 09:43
PROVIDERS: PCP Internal Medicine Adolescent Medicine; Visit Provider Podiatrist
DX: M25.571 Pain in right ankle and joints of right foot (principal); S82.891K Other fracture of right lower leg, subsequent encounter for closed fracture with nonunion; S82.831K Other fracture of upper and lower end of right fibula, subsequent encounter for closed fracture with nonunion; Z98.890 Other specified postprocedural states
CPT/HCPCS: 73610

== ENCOUNTER 2024-01-15 08:26 | Outpatient (CLI) | payer MEDICARE, BC, SELFPAY ==
[2024-01-15 08:42] VITALS: BMI 32.8
[2024-01-15 08:55] LABS: Basophils # 0.1 K/mm3 (0-0.2); Basophils % 1.5 % (0.1-2.0); Eosinophils # 0.2 K/mm3 (0.0-0.4); Eosinophils % 3.8 % (0.1-12.0); Hematocrit 50.3 % (42.0-52.0); Hemoglobin 16.3 g/dL (14.1-18.0); Lymphocytes # 1.3 K/mm3 (0.7-4.5); Lymphocytes % 21.4 % (10-50); Mean Corpuscular HGB Conc 32.3 g/dL (31.8-35.4); Mean Corpuscular Hemoglobin 30.2 pg (27.0-31.2); Mean Corpuscular Volume 93.4 fl (80-94); Mean Platelet Volume 8.4 fl (7.4-10.4); Monocytes # 0.6 K/mm3 (0.1-1.0); Monocytes % 9.2 % (1.7-9.3); Neutrophils # 3.8 K/mm3 (1.8-7.8); Neutrophils % 64.2 % (37.0-80.0); Platelet Count 150 K/mm3 (142-424); Red Blood Count 5.38 M/mm3 (4.60-6.20); Red Cell Distribution Width 14.6 % (11.5-17.5)
== END 2024-01-15 08:58 | disposition home or self-care (01) ==
LOC: INF 08:27
PROVIDERS: PCP Internal Medicine Adolescent Medicine; Visit Provider Internal Medicine Medical Oncology
DX: Z85.038 Personal history of other malignant neoplasm of large intestine (principal); D69.3 Immune thrombocytopenic purpura
CPT/HCPCS: 36415; 85025

== ENCOUNTER 2024-05-24 09:14 | Outpatient (CLI) | payer MEDICARE, BC, SELFPAY ==
--- NOTE | 2024-05-24 09:18 | XR_ITS ---
FINAL REPORT CLINICAL HISTORY: ankle pain COMPARISON: 10/20/2023 FINDINGS: RIGHT ANKLE 3 views of the right ankle were obtained. There is a sideplate and screws securing the distal fibula. There is no acute fracture or dislocation. The mortise appears intact. Visualized joint spaces are normally aligned. Soft tissues are unremarkable. A small plantar spur is present. IMPRESSION: Postoperative changes without acute bony abnormality. Reviewed, Interpreted and Dictated by Dangelo Chun MD Transcribed by Buffy Hernandez Authenticated and [facility]
== END 2024-05-24 23:59 | disposition home or self-care (01) ==
LOC: RAD 09:16
PROVIDERS: PCP Internal Medicine Adolescent Medicine; Visit Provider Podiatrist
DX: S82.891K Other fracture of right lower leg, subsequent encounter for closed fracture with nonunion (principal); S82.831K Other fracture of upper and lower end of right fibula, subsequent encounter for closed fracture with nonunion
CPT/HCPCS: 73610

== ENCOUNTER 2024-05-25 10:43 | Outpatient (CLI) | payer MEDICARE, BC, SELFPAY ==
--- NOTE | 2024-05-25 10:49 | XR_ITS ---
FINAL REPORT CLINICAL HISTORY: left hip pain COMPARISON: None FINDINGS: LEFT HIP: Two views of the left hip with an AP pelvis view demonstrate no acute fracture or dislocation. There are minimal hypertrophic changes at the acetabular margin. Subchondral sclerosis is noted. The visualized bony structures are well aligned. The femoral head has a normal smooth contour. There is no evidence of avascular necrosis. No soft tissue abnormality is seen. IMPRESSION: Mild osteoarthritis. Reviewed, Interpreted and Dictated by Dangelo Chun MD Transcribed by Buffy Hernandez Authenticated and [facility]
== END 2024-05-25 23:59 | disposition home or self-care (01) ==
LOC: RAD 10:45
PROVIDERS: PCP Internal Medicine Adolescent Medicine; Visit Provider Orthopaedic Surgery
DX: M25.552 Pain in left hip (principal)
CPT/HCPCS: 73502

== ENCOUNTER 2024-06-15 17:08 | Outpatient (CLI) | payer MEDICARE, BC, SELFPAY ==
--- NOTE | 2024-06-15 17:12 | MR_ITS ---
PROCEDURE INFORMATION: Exam: MR Left Lower Extremity Joint Without Contrast; Hip Exam date and time: 06/15/2024 5:27 PM Age: 69 years old Clinical indication: Patient HX: Left hip pain after fall in December 2023. PT stated painful when moved a certian way TECHNIQUE: Imaging protocol: Magnetic resonance imaging of the left lower extremity joint without contrast. Exam focused on the hip. COMPARISON: CR XR HIP LT 2-3V W/PELVIS 05/25/2024 11:14 AM FINDINGS: Bones/joints: Left acetabular bone marrow edema is seen diffusely with corresponding depressed T1 signal and suggestion of vertically oriented fracture through the roof and extending superiorly along the left iliac bone with linear T1 hypointense signal. Incompletely evaluated periosteal edema is seen anteriorly along the visualized left iliac bone, posteriorly along the left iliopsoas muscle. Heterogeneous right iliac and right acetabular signal is also seen, however less severe. Elevated T2 signal is noted in the joint space of the left femoroacetabular joint with mild surrounding pericapsular edema. Bilateral degenerative changes congruent with moderate to severe osteoarthritis bilaterally. Labrum: Bilateral chronic labral tears. TENDONS: Tendons of iliopsoas group: Unremarkable. No evidence of tear. Tendons of medial compartment of thigh: Unremarkable. No evidence of tear. Tendons of lateral rotators of hip: Edema along the obturator externus and quadratus femoris muscles on the left. Tendons of gluteal group: Unremarkable. No evidence of tear. Soft tissues: Unremarkable. IMPRESSION: 1. Findings are concerning for chronic left acetabular vertically oriented fracture with extensive marrow space edema extending into the body of the left iliac bone. T1 hypointense signal is suggestive of possible underlying pathologic marrow space replacement (pathologic fracture?), additional differential consideration is avascular necrosis. Patient should return for contrasted examination of the left hip, as well as, including the entirety of the pelvis as left iliac bone periosteal edema is not entirely visualized on this examination. 2. Findings suggestive of reactive left femoroacetabular effusion with capsulitis/synovitis. 3. Strains of the left obturator externus and quadratus femoris 4. Osteoarthritis and bilateral labral tears.
== END 2024-06-15 23:59 | disposition home or self-care (01) ==
LOC: RAD 17:09
PROVIDERS: PCP Internal Medicine Adolescent Medicine; Visit Provider Orthopaedic Surgery
DX: S70.02XA Contusion of left hip, initial encounter (principal); M25.552 Pain in left hip
CPT/HCPCS: 73721

== ENCOUNTER 2024-07-09 06:24 | Day surgery (SDC) | payer MEDICARE, BC, SELFPAY ==
[2024-07-01 10:54] VITALS: BMI 32.8
[2024-07-09] MEDS: LACTATED RINGERS 1000ML 1,000 ML 25 ML IV (06:36)
[2024-07-09 06:40] VITALS: BP 131/69; PULSE 103; RESP 18; TEMP 36.9; O2SAT 95
--- NOTE | 2024-07-09 06:47 | HMH.SCOPE ---
Procedure: Date: 07/09/24 Patient Date of :: 1955 Procedure Performed:: Total colonoscopy to terminal ileum with polypectomy . Indications:: Patient is a 69-year-old male with history of colon cancer who presents for follow-up surveillance colonoscopy. He underwent low anterior resection by Dr. Hartman in October 2011 for stage IIa colorectal adenocarcinoma which was followed by chemotherapy and radiation. Dr. Hartman had performed several colonoscopies in the subsequent years after his colon resection. I did colonoscopy in June 2016 and he had several tubular adenomas. Follow-up colonoscopy June 2018 revealed tubular adenoma. Colonoscopy June 2020 revealed 4 tubular adenomas. Colonoscopy 04/05/2022 revealed tubular adenoma in the cecum and several hyperplastic polyps. . Performing Provider:: Paul Patel MD Referring Provider:: Braden Louis MD . Sedation:: MAC sedation . Procedure:: Patient history was obtained and appropriate physical examination was performed. Patient's medications and allergies were reviewed. Informed consent was obtained after explaining the benefits, alternatives, and risks of the procedure including, but not limited to, bleeding, perforation, missed lesions, and adverse reaction to anesthesia medications. Patient was transported to endoscopy procedure room. Patient was connected to monitoring devices. Throughout the procedure the patient's blood pressure, pulse, and oxygen saturations were monitored continuously. Patient identification and planned procedure were verified by the staff. Patient was positioned in lateral decubitus position. Digital anorectal exam was performed. Variable stiffness Olympus colonoscope was inserted and advanced under direct visualization to the cecum. Adequacy of the colonic preparation was noted. The colonoscope was advanced a short distance into the terminal ileum. The colonoscope was then slowly withdrawn while carefully examining the color, texture, anatomy, and integrity of the mucosoa circumferentially. Within the rectum retroflexion was performed. Colonoscope was then withdrawn. Impression: There was some particulate liquid stool throughout the colon which was cleared with high-volume trans colonoscopic irrigation and suctioning. In the descending colon there was a diminutive possibly adenomatous polyp removed with cold snare. There were a couple of very subtle diminutive probable hyperplastic polyps in the descending colon removed with biopsy forceps. Anastomosis was visualized at approximately 18 to 20 cm from the anal verge. . Findings:: Diminutive polyps as above Patent anastomosis at 18 to 20 cm from the anal verge Recommendations:: Repeat colonoscopy pending pathology. Likely 2 or 3 years. Complications:: None immediately apparent Estimated blood obtained (mL): 1 Colonoscopy Component Colonoscopy Component Was a colonoscopy performed during today's procedure?: Yes Recommended follow up colonoscopy of at least 10 years?: No If no, follow up colonoscopy recommended in ___ years?: See above Reason for not recommending >/= 10 yr follow-up interval?: See above
--- NOTE | 2024-07-09 07:10 | P.PNANES_ITS ---
[facility] Disclaimer: The information contained in this section may have been updated after the patient was seen, as this information can be updated by other users. Medical History Colon cancer HLD (hyperlipidemia) HTN (hypertension) CAD (coronary artery disease) RAKAN OCTOBER 2020-STEMI DAPT Plavix/ASA Surgical History History of colonoscopy History of colon resection History of coronary artery stent placement Family History Mother Family history of ovarian cancer Father Liver cancer Social History Smoking Status: Never smoker alcohol intake: never substance use type: denies use current occupational status: retired Travel in the last 8 weeks: None household members: spouse housing: house caffeine: No Have you lived/traveled outside [place] in past 30 days?: No Contact w/someone who lives/traveled outside [place] past 30 days?: No Exposure to someone with infectious disease in past 14 days?: No Do you have a fever (greater than 100.4 F or 38 C)?: No Have you tested positive for COVID-19: No Exposed to someone with COVID-19 in past 14 days?: No Do you have a sore throat?: No Do you have a cough?: No Do you have any weakness?: No Do you have any diarrhea?: No Are you experiencing any unusual bleeding?: No Do you have any muscle aches/pain?: No Do you have any abdominal pain?: No Are you experiencing loss of taste or smell?: No [facility] Anesthesia Checklist Patient Identification Patient Identification: Arm Band Structural Data Admitted From: Home Planned Operative Procedure/s: Colonoscopy Consent for Planned Operative Procedure(s) Verified: Yes Verified Documents: Surgical Consent and History and Physical NPO Status Verified Time NPO: 00:00 Additional verifications Anesthesia Reactions: No Hx Blood Transfusions: No Blood Transfusion Reaction: No Airway Assessment Mallampati Score:: Class II C-Spine Mobility Assessed: Yes TMJ Mobility Assessed: Yes Dentition: Good Dentition Neurological Assessment Level of Consciousness: Awake, Alert and Appropriate Anesthesia Plan Anesthesia Risk discussed: Yes Anesthesia Plan: Verified ASA Class: III Anesthesia Type: MAC
[2024-07-09 07:20] VITALS: O2SAT 97
[2024-07-09 08:04] VITALS: BP 111/73; PULSE 84; RESP 16; TEMP 36.3; O2SAT 93
[2024-07-09 08:14] VITALS: BP 127/98; PULSE 76; RESP 16; TEMP 36.3; O2SAT 94
[2024-07-09 08:24] VITALS: BP 114/75; PULSE 74; RESP 16; TEMP 36.3; O2SAT 95
[2024-07-09 08:34] VITALS: BP 120/74; PULSE 74; RESP 16; TEMP 36.3; O2SAT 96
== END 2024-07-09 08:34 | disposition home or self-care (01) ==
PROVIDERS: PCP Internal Medicine Adolescent Medicine; Visit Provider Surgery
PROC: 0DJD8ZZ Inspection of Lower Intestinal Tract, Via Natural or Artificial Opening Endoscopic (ICD-10-PCS; CPT 45380; principal; 2024-07-09 07:30)
DX: K63.5 Polyp of colon (principal); Z85.038 Personal history of other malignant neoplasm of large intestine; Z86.0102 Personal history of hyperplastic colon polyps; Z86.0101 Personal history of adenomatous and serrated colon polyps
CPT/HCPCS: 45380; 45385; 36415; 82565; 84520; J7120

== ENCOUNTER 2024-07-09 11:57 | Outpatient (CLI) | payer MEDICARE, BC, SELFPAY ==
[2024-07-09 12:49] LABS: Blood Urea Nitrogen 25 mg/dl (9-20); Estimated Glomerular Filt Rate 74 ml/min (>60); GFR (African American) 89 ML/MIN (>60)
== END 2024-07-09 23:59 | disposition home or self-care (01) ==
LOC: LAB 11:58
PROVIDERS: PCP Internal Medicine Adolescent Medicine; Visit Provider Physician Assistant
DX: S70.02XA Contusion of left hip, initial encounter (principal)
CPT/HCPCS: 36415; 82565; 84520

== ENCOUNTER 2024-07-12 08:05 | Outpatient (CLI) | payer MEDICARE, BC, SELFPAY ==
--- NOTE | 2024-07-12 08:06 | MR_ITS ---
FINAL REPORT TECHNIQUE: Pre and postcontrast multiplanar MR imaging of the pelvis was obtained. CLINICAL HISTORY: bone marrow edema. PELVIC PAIN. PRIOR ABNORMAL MRI COMPARISON: 06/15/2024 FINDINGS: There is redemonstration of extensive marrow edema within the left superior acetabulum. Edema pattern is similar to prior exam. On T1-weighted imaging, vertical linear focus of abnormal signal is seen which is concerning for possible fracture or pathologic fracture. This has a stable appearance. Postcontrast imaging demonstrates diffuse enhancement in the acetabular region. Fracture line is well-visualized on axial image 25 of series 8. There is mild edema within the lateral left femoral head with significant narrowing of the left hip joint space. There is a small joint effusion, similar to prior exam. There is also a small focus of abnormal signal in the right superior acetabular region on image 27 of series 4 which is unchanged. Fluid is identified deep to the left iliopsoas muscle which is slightly increased from prior exam. This is best seen on axial images. IMPRESSION: 1. Vertical fracture through the left superior acetabulum with surrounding edema and enhancement. Enhancing mass not identified. However, enhancement may be related to granulomatous change related to fracture or stress fracture. Pathologic fracture considered less likely. 2. Stable abnormal signal in the right superior acetabular region. 3. Increased fluid deep to the left iliopsoas muscle. Reviewed, Interpreted and Dictated by Dangelo Chun MD Transcribed by Jessy Oliva Authenticated and [facility]
[2024-07-12] MEDS: SODIUM CHLORIDE 0.9% 10ML SYR (RAD ONLY) 10 ML IV (08:49)
[2024-07-12] MEDS: GADOTERIDOL INJ 20ML SYRINGE 20 ML IV (08:49)
== END 2024-07-12 23:59 | disposition home or self-care (01) ==
LOC: RAD 08:06
PROVIDERS: PCP Internal Medicine Adolescent Medicine; Visit Provider Physician Assistant
DX: R10.2 Pelvic and perineal pain (principal); R93.7 Abnormal findings on diagnostic imaging of other parts of musculoskeletal system
CPT/HCPCS: 72197; A9576

== ENCOUNTER 2024-07-15 08:29 | Outpatient (CLI) | payer MEDICARE, BC, SELFPAY ==
[2024-07-15 08:33] VITALS: BMI 32.8
--- NOTE | 2024-07-15 08:40 | PC.NURSE ---
0840-collected labs via venipuncture stick in left ac with butterfly needle;pt to oncology appt.
[2024-07-15 08:51] LABS: Basophils # 0.1 K/mm3 (0-0.2); Basophils % 1.2 % (0.1-2.0); Eosinophils # 0.2 K/mm3 (0.0-0.4); Eosinophils % 3.2 % (0.1-12.0); Hematocrit 50.5 % (42.0-52.0); Hemoglobin 16.6 g/dL (14.1-18.0); Lymphocytes # 1.4 K/mm3 (0.7-4.5); Lymphocytes % 23.2 % (10-50); Mean Corpuscular HGB Conc 32.9 g/dL (31.8-35.4); Mean Corpuscular Hemoglobin 29.4 pg (27.0-31.2); Mean Corpuscular Volume 89.5 fl (80-94); Mean Platelet Volume 10.4 fl (7.4-10.4); Monocytes # 0.6 K/mm3 (0.1-1.0); Monocytes % 10.4 % (1.7-9.3); Neutrophils # 3.7 K/mm3 (1.8-7.8); Neutrophils % 61.7 % (37.0-80.0); Platelet Count 174 K/mm3 (142-424); Red Blood Count 5.64 M/mm3 (4.60-6.20); Red Cell Distribution Width 13.6 % (11.5-17.5)
[2024-07-15 09:13] LABS: Alanine Aminotransferase 25 U/L (12-78); Albumin Level 4.1 g/dl (3.5-5.0); Albumin/Globulin Ratio 1.6 (1.1-1.8); Alkaline Phosphatase 69 U/L (38-126); Anion Gap 11.1 mEq/L (5-15); Aspartate Amino Transferase 29 U/L (17-59); Bilirubin,Total 0.8 mg/dl (0.2-1.3); Blood Urea Nitrogen 26 mg/dl (9-20); Calcium 9.4 mg/dl (8.4-10.2); Carbon Dioxide 27 mmol/L (22.0-30.0); Chloride 106 mmol/L (98-107); Creatinine Clearance Estimated 102 mL/min (50-200); Estimated Glomerular Filt Rate 83 ml/min (>60); GFR (African American) 101 ML/MIN (>60); Globulin 2.5 g/dL (1.3-3.2); Glucose 91 mg/dl (74-100); Potassium 4.1 mmoL/L (3.5-5.1); Sodium 140 mmol/L (136-145); Total Protein,Serum 6.6 g/dl (6.3-8.2)
[2024-07-16 08:14] LABS: CEA 1.9 ng/mL (0.0-4.7)
== END 2024-07-15 08:42 | disposition home or self-care (01) ==
LOC: INF 08:30
PROVIDERS: PCP Internal Medicine Adolescent Medicine; Visit Provider Internal Medicine Medical Oncology
DX: Z85.038 Personal history of other malignant neoplasm of large intestine (principal); D69.6 Thrombocytopenia, unspecified
CPT/HCPCS: 36415; 80053; 82378; 85025

== ENCOUNTER 2024-10-05 07:53 | Outpatient (CLI) | payer MEDICARE, BC, SELFPAY ==
--- NOTE | 2024-10-05 08:15 | MR_ITS ---
FINAL REPORT TECHNIQUE: Multiplanar MR without contrast CLINICAL HISTORY: Lt Acetabular Fx PELVIC PAIN WORSE ON LEFT PRIOR MRI COMPARISON: 07/12/2024 FINDINGS: There is persistent fracture through the posterior wall of the left acetabulum with surrounding marrow edema and marrow signal change. Marrow signal change and edema extend into the acetabular roof, similar to prior exams. Abnormal marrow signal change involves bilateral iliac bones abutting the SI joints. This could be related to sacroiliitis, stress reaction, or even metastatic disease. There is abnormal signal change of the right acetabular roof, similar to the prior study. New marrow edema is noted of the left femoral neck in a pattern suggesting stress fracture. There is a moderate size joint effusion on the left. IMPRESSION: Stable left acetabular fracture. Unclear if this is posttraumatic or pathologic. New stress injury left femoral neck. Other areas of nonspecific marrow change involving bilateral iliac bones. Consider CT correlation. Reviewed, Interpreted and Dictated by Nehal Almanza MD Transcribed by Coty Olvera Authenticated and . [facility]
== END 2024-10-05 23:59 | disposition home or self-care (01) ==
LOC: RAD 07:55
PROVIDERS: PCP Internal Medicine Adolescent Medicine; Visit Provider Physician Assistant
DX: R93.7 Abnormal findings on diagnostic imaging of other parts of musculoskeletal system (principal); S70.02XA Contusion of left hip, initial encounter; S32.402A Unspecified fracture of left acetabulum, initial encounter for closed fracture
CPT/HCPCS: 72195

== ENCOUNTER 2024-12-10 15:17 | Outpatient (CLI) | payer MEDICARE, BC, SELFPAY ==
--- OUTSIDE RECORDS SUMMARY | 2024-10-25 13:00 | XMS_ITS | Encounter Summary ---
Author Organization Healthcare Address [address] [id number] Care Team Providers Care Cycle Repairer Name Role Phone Braden Louis MD Primary Care Provider [phone] Reason for Referral * Imaging (Routine) - Closed Specialty Diagnoses / Procedures Referred By Cesar t Referred To Contact Radiology Diagnoses Left hip pain Procedures CT Bony Pelvis Kenny Vance MD [address] [place] [address] Phone: tel: fax: Referral ID Status Reason Start Date Expiration Date Visits Re quested Visits Authorized [id number] Closed 10/25/2024 04/26/2026 1 1 Reason for Visit * Consultation (Routine) - Closed Specialty Diagnoses / Procedures Referred By Cesar che Referred To Contact Surgical Oncology / Hematology and Oncology Diagnoses Left hip pain Erwin Lacy PA [address] [place] [facility] [address] [place] [address] Phone: tel: fax: Referral ID Status Reason Start Date Expiration Date V isits Requested Visits Authorized [id number] Closed Specialty Services Required 10/08/2024 04/09/2026 1 1 Encounter Details Date Type Department Care Team (Late st Contact Info) Description 10/25/2024 1:00 PM EDT Office Visit [facility] Multidisciplinary Oncology Clinic [address] [place] [address] Kenny Vance MD [address] [place] [address] Left hip pain Social History Tobacco Use Types Packs/Day Years Used Date Smoking Tobacco: Never Smokeless Tobacco: Former Chew Tobacco Cessation:Counseling Given: Not Answered Sex and Gender Information Value Date Recorded Sex Assigned at Male 11/22/2023 10:11 AM EDT Legal Sex Male 7:26 PM EDT Gender Identity Male 11/22/2023 10:11 AM EDT Sexual Orientation Straight 11/22/2023 10 :11 AM EDT documented as of this encounter Last Filed Vital Signs Vital Sign Reading Time Taken Comments Blood Pressure 122/79 10/25/2024 12:04 PM EDT Pulse 76 10/25/2024 12:04 PM EDT Temperature 36.6 C (97.9 F) 10/25/2024 12:04 PM EDT Respiratory Rate 15 10/25/2024 12:04 PM EDT Oxygen Saturation 94% 10/25/2024 12:04 PM EDT Inhaled Oxygen Concentration - - Weight 108 kg (237 lb 10.5 oz) 10/25/2024 12:04 PM EDT Height 180.3 cm (5' 11 ) 10/25/2024 12:04 PM EDT Body Mass Index 33.15 10/25/2024 12:04 PM EDT documented in this encounter Miscellaneous Notes * Progress Notes - Herb Moreland MD - 10/25/2024 1:00 PM EDT This is a 69 y.o. male who presents to the clinic today for evaluation of left hip pain. 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 Saw outside provider and XR were negative. MRI x 3 were obtained and showed lesion in the supra-acetabular area and reaction in the neck. Referred here to discuss given his cancer history and concern for metastatic process. He says hispain is mild to moderate. 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 He has a recent colonsocopy earlier this year that was without recurrence and next will be in 3 years. 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 Lives with . Nonsmoker. Review of systems: Negative except as per HPI. Physical examination: On examination, there is pain with hip flexion and internal rotation located in the groin. IR 5 deg. ER 20 deg. Antalgic gait. Assessment: This is a 69 y.o. male with bony lesion in the left supra-acetabular area and stress reaction in the femoral neck in setting of prior colon cancer in remission. Plan: We discussed the appearance of the imaging with the patient. His pain is mild to moderate at this time. We recommended that he obtain a CT bony pelvis to assess these lesions further and determine feasibility of needle biopsy. We recommended that he may weight bear as tolerated with a cane. We willsee him once the CT is completed. Cosigned by Kenny Vance MD at 10/25/2024 12:59 PM EDT Associated attestation - Kenny Vance MD - 10/25/2024 12:59 PM EDT I saw and evaluated the patient with the resident/fellow. I discussed the case with the resident/fellow and agree with the findings and plan as documented. documented in this encounter Plan of Treatment Not on file documented as of this encounter Results * CT Bony Pelvis (10/27/2024 1:27 PM EDT) Anatomical Region Laterality Modality Pelvis Computed Tomogra phy Impressions 10/27/2024 2:02 PM EDT Redemonstration of ill-defined sclerotic focus in the left ilium likely correlates to region of signal abnormality visualized on prior MRI. Subtle sclerosis in the right ilium likely correlates to subtle signal abnormality noted on prior MRI. Overall appearance is nonspecific given bilateral findings this could represent sequela of prior radiation therapy with potential insufficiency fracture on the left, however ill-defined or obscured lesion would also be a consideration. Given better visualization on prior noncontrast MRI, nuclear medicine bone scan or follow-up contrast-enhanced MRI could be considered for improved characterization. Moderate osteoarthrosis of the left hip as above, the previously noted signal abnormalities in the left proximal femur on prior MRI are not well visualized on CT. Mild edema along the medial aspect of the left ilium could represent mild iliopsoas bursitis. Mild/moderate osteoarthrosis of the sacroiliac joints with mild adjacent sclerosis. Adjacent sclerosis could represent sequela of sacroiliitis and/or post radiation change however given the above-mentioned findings follow-up could be considered in this region to ensure stability. CRITICAL RESULT: No. COMMUNICATION: Per this written report. Drafted by Edwin Baig on 10/27/2024 1:32 PM Final report signed by Edwin Baig on 10/27/2024 2:02 PM Narrative 10/27/2024 2:02 PM EDT CLINICAL INDICATION: Occult malignancy TECHNIQUE: Multiple axial CT images were obtained through level of pelvis per CT Bony Pelvis protocol. The axial CT data set was used to generate high resolution reformatted images in the coronal and sagittal planes to facilitate diagnostic accuracy and treatment planning. Total DLP (Dose-Length Product): 403.70 mGy.cm. Please note: The reported value represents the total of one or more individual components during the CT acquisition on this date and at this time, and as such, the same value may appear in more than one CT report depending on the interpreting/reporting physicians. COMPARISON: Outside MRI October 05, 2024 FINDINGS: No acute fracture or dislocation. Redemonstration of ill-defined sclerotic focus along the medial margin of the left ilium is superior to the acetabulum measuring approximately 6. 3.2 x 2.7 x 3.5 cm. Osteoarthrosis of the left hip with near complete loss and osteophyte formation. Subchondral cystic changes noted in the superior acetabulum. Enthesopathy along the greater trochanters. Mild osteoarthrosis of the right hip. Subtle region of ill-defined sclerosis along the medial aspect of the right ilium. Mild/moderate osteoarthrosis of the sacroiliac joints with mild adjacent sclerosis. Subtle irregularity along the inferior margin of the left ilium at sacroiliac joint. Atherosclerotic calcification throughout the abdominal aorta extending into its branches. No evidence of bowel obstruction. The urinary bladder is minimally distended with no definite focal abnormalities. Solid edema along the medial margin of the left ilium may represent a component of associated bursitis. Procedure Note Edwin Baig MD - 10/27/2024 CLINICAL INDICATION: Occult malignancy TECHNIQUE: Multiple axial CT images were obtained through level of pelvis per CT BonyPelvis protocol. The axial CT data set was used to generate highresolution reformatted images in the coronal and sagittal planes tofacilitate diagnostic accuracy and treatment planning. Total DLP (Dose-Length Product): 403.70 mGy.cm. Please note: The reportedvalue represents the total of one or more individual components during theCT acquisition on this date and at this time, and as such, the same valuemay appear in more than one CT report depending on theinterpreting/reporting physicians. COMPARISON: Outside MRI October 05, 2024 FINDINGS: No acute fracture or dislocation. Redemonstration of ill-defined scleroticfocus along the medial margin of the left ilium is superior to theacetabulum measuring approximately 6. 3.2 x 2.7 x 3.5 cm. Osteoarthrosisof the left hip with near complete loss and osteophyte formation.Subchondral cystic changes noted in the superior acetabulum. Enthesopathyalong the greater trochanters. Mild osteoarthrosis of the right hip.Subtle region of ill-defined sclerosis along the medial aspect of theright ilium. Mild/moderate osteoarthrosis of the sacroiliac joints withmild adjacent sclerosis. Subtle irregularity along the inferior margin ofthe left ilium at sacroiliac joint. Atherosclerotic calcification throughout the abdominal aorta extendinginto its branches. No evidence of bowel obstruction. The urinary bladderis minimally distended with no definite focal abnormalities. Solid edemaalong the medial margin of the left ilium may represent a component ofassociated bursitis. IMPRESSION: Redemonstration of ill-defined sclerotic focus in the left ilium likelycorrelates to region of signal abnormality visualized on prior MRI. Subtlesclerosis in the right ilium likely correlates to subtle signalabnormality noted on prior MRI. Overall appearance is nonspecific givenbilateral findings this could represent sequela of prior radiation therapywith potential insufficiency fracture on the left, however ill-defined orobscured lesion would also be a consideration. Given better visualizationon prior noncontrast MRI, nuclear medicine bone scan or gdehya-nqgtepdxoy-crjwtsyf MRI could be considered for improved characterization. Moderate osteoarthrosis of the left hip as above, the previously notedsignal abnormalities in the left proximal femur on prior MRI are not wellvisualized on CT. Mild edema along the medial aspect of the left ilium could represent mildiliopsoas bursitis. Mild/moderate osteoarthrosis of the sacroiliac joints with mild adjacentsclerosis. Adjacent sclerosis could represent sequela of sacroiliitisand/or post radiation change however given the above-mentioned findingsfollow-up could be considered in this region to ensure stability. CRITICAL RESULT: No. COMMUNICATION: Per this written report. Drafted by Edwin Baig on 10/27/2024 1:32 PM Final report signed by Edwin Baig on 10/27/2024 2:02 PM Kenny Vance MD IMG CT PROCEDURES Final R esult documented in this encounter Visit Diagnoses Diagnosis Left hip pain Pain in joint, pelvic region and thigh Left hip pain Pain in joint, pelvic region and thigh documented in this encounter Additional Health Concerns Assessment Noted Time A fall risk assessment has been complete d for the patient 10/25/2024 12:03 PM EDT A Body Mass Index follow-up plan has been documented for the patient 10/25/2024 12:59 PM EDT documented as of this encounter Care Teams Cycle Repairer Relationship Specialty Start Date End Date Braden Louis MD [address] [place] [address] PCP - General 11/17/20 documented as of this encounter
--- OUTSIDE RECORDS SUMMARY | 2024-10-27 13:15 | XMS_ITS | Encounter Summary ---
Author Organization Healthcare Address [address] [place] [address] Care Team Providers Care Funeral Planning Counselor Name Role Phone Braden Louis MD Primary Care Provider [phone] Reason for Referral * Imaging (Routine) - Closed Specialty Diagnoses / Procedures Referred By Contac t Referred To Contact Radiology Diagnoses Left hip pain Procedures CT Bony Pelvis Kenny Vance MD [address] [place] [address] Phone: tel: fax: Referral ID Status Reason Start Date Expiration Date Visits Re quested Visits Authorized [id number] Closed 10/25/2024 04/26/2026 1 1 Reason for Visit * Imaging (Routine) - Closed Specialty Diagnoses / Procedures Referred By Contac t Referred To Contact Radiology Diagnoses Left hip pain Procedures CT Bony Pelvis Kenny Vance MD [address] [place] [address] Phone: tel: fax: Referral ID Status Reason Start Date Expiration Date Visits Re quested Visits Authorized [id number] Closed 10/25/2024 04/26/2026 1 1 Encounter Details Date Type Department Care Team (Latest Contact Info) Description 10/27/2024 1:15 PM EDT - 10/27/2024 11:59 PM EDT Hospital Encounter [facility] [address] [place] [id number] Left hip pain Discharge Disposition: Home or Self Care Social History Tobacco Use Types Packs/Day Years Used Date Smoking Tobacco: Never Smokeless Tobacco: Former Chew Sex and Gender Information Value Date Recorded Sex Assigned at Male 11/22/2023 10:11 AM EDT Legal Sex Male 7:26 PM EDT Gender Identity Male 11/22/2023 10:11 AM EDT Sexual Orientation Straight 11/22/2023 10 :11 AM EDT documented as of this encounter Medications at Time of Discharge atorvastatin (Lipitor) 40 MG tablet Take 1 tablet by mouth daily. 09/10/2024 empagliflozin (Jardiance) 25 MG Take 1 tablet by mouth daily. 01/09/2023 losartan (Cozaar) 100 MG tablet Take 1 tablet by mouth daily. 09/10/2024 metoprolol succinate XL (Toprol-XL) 25 MG 24 hr tablet Take 1 tablet by mouth daily. 09/10/2024 documented as of this encounter Plan of Treatment Not on file documented as of this encounter Procedures Procedure Name Priority Date/Time Associated Diagnosis Comments CT BONY PELVIS Routine 10/27/2024 1:27 PM EDT Left hip pain documented in this encounter Results * CT Bony Pelvis [...] noncontrast MRI, nuclear medicine bone scan or bgzlww-[id number]-thhbdsqs MRI could be considered for improved characterization. [...] documented as of this encounter Care Teams Funeral Planning Counselor Relationship Specialty Start Date End Date Braden Louis MD [address] [place] [address] PCP - General 11/17/20 documented as of this encounter
--- OUTSIDE RECORDS SUMMARY | 2024-11-01 11:30 | XMS_ITS | Encounter Summary ---
Author Organization Healthcare Address [address] [id number] Care Team Providers Care Intelligence Support Officer Name Role Phone Braden Louis MD Primary Care Provider [phone] Reason for Visit * Reason Comments Follow-up Left hip pain Encounter Details Date Type Department Care Team (Latest Contact Info) Description 11/01/2024 11:30 AM EDT Office Visit [facility] Multidisciplinary Oncology Clinic [address] [place] [address] Kenny Vance MD [address] [facility] [address] [place] [address] Primary osteoarthritis of left hip (Primary Dx) Social History Tobacco Use Types Packs/Day Years [...] Sign Reading Time Taken Comments Blood Pressure 128/83 11/01/2024 11:16 AM EDT Pulse 62 11/01/2024 11:16 AM EDT Temperature 36.5 C (97.7 F) 11/01/2024 11:16 AM EDT Respiratory Rate - - Oxygen Saturation 95% 11/01/2024 11:16 AM EDT Inhaled Oxygen Concentration - - Weight 107 kg (236 lb 12.4 oz) 11/01/2024 11:16 AM EDT Height 180.3 cm (5' 11 ) 11/01/2024 11:16 AM EDT Body Mass Index 33.02 11/01/2024 11:16 AM EDT documented in this encounter Miscellaneous Notes * Progress Notes - Herb Moreland MD - 11/01/2024 11:30 AM EDT This is a 69 y.o. male who presents to the clinic today for evaluation of left hip pain. In short, he had a fall and then left hip pain. Referred by outside provider d/t concern for metastatic disease. Last visit, discussed CT bony pelvis for better examination of bone lesion and quality. Physical examination: On examination, there is pain with hip flexion and internal rotation located in the groin. IR 5 deg. ER 20 deg. Antalgic gait. Imaging: CT bony pelvis reviewed showing post-irradiation changes in the femoroacetabular articulation without metastatic lesions. Assessment: This is a 69 y.o. male with post-radiation arthritis of the left hip without evidence of metastaticdisease. Plan: We discussed the diagnosis and options for treatment including continued symptomatic treatment and total hip arthroplasty. At this time, he would like to continue with cane as needed, medication treatment with NSAIDs/APAP, and activity modification but will give us a call whenever he is ready to proceed with surgery. Cosigned by Kenny Vance MD at 11/01/2024 11:47 AM EDT Associated attestation - Kenny Vance MD - 11/01/2024 11:47 AM EDT I saw and evaluated the patient with the resident/fellow. I discussed the case with the resident/fellow and agree with the findings and plan as documented. documented in this encounter Plan of Treatment Not on file documented as of this encounter Visit Diagnoses Diagnosis Primary osteoarthritis of left hip- Primary documented in this encounter Additional Health Concerns Assessment Noted Time A fall risk assessment has been complete d for the patient 11/01/2024 11:17 AM EDT A Body Mass Index follow-up plan has been documented for the patient 11/01/2024 12:01 PM EDT documented as of this encounter Care Teams Intelligence Support Officer Relationship Specialty Start Date End Date Braden Louis MD [address] [place] [address] PCP - General 11/17/20 documented as of this encounter
--- OUTSIDE RECORDS SUMMARY | 2024-12-10 15:19 | XMS_ITS | Encounter Summary ---
Author Organization Healthcare Address [address] [place] [address] Care Team Providers Care Senior Research Associate Name Role Phone Braden Louis MD Primary Care Provider [phone] Encounter Details Date Type Department Care Team (Latest Contact Info) Description 10/27/2024 Travel Social History Tobacco Use Types Packs/Day Years Used Date Smoking Tobacco: Never Smokeless Tobacco: Former Chew Sex and Gender Information Value Date Recorded Sex Assigned at Male 11/22/2023 10:11 AM EDT Legal Sex Male 7:26 PM EDT Gender Identity Male 11/22/2023 10:11 AM EDT Sexual Orientation Straight 11/22/2023 10 :11 AM EDT documented as of this encounter Plan of Treatment Not on file documented as of this encounter Visit Diagnoses Not on filedocumented in this encounter Additional Health Concerns Assessment Noted Time A fall risk assessment has been complete d for the patient 10/25/2024 12:03 PM EDT A Body Mass Index follow-up plan has been documented for the patient 10/25/2024 12:59 PM EDT documented as of this encounter Care Teams Senior Research Associate Relationship Specialty Start Date End Date Braden Louis MD [address] [place] [address] PCP - General 11/17/20 documented as of this encounter
--- OUTSIDE RECORDS SUMMARY | 2024-12-10 15:19 | XMS_ITS | Encounter Summary ---
Author Organization Healthcare Address [address] [place] [address] Care Team Providers Care First Grade Teacher Name Role Phone Braden Louis MD Primary Care Provider Encounter Details Date Type Department Care Team (Late st Contact Info) Description 07/27/2015 Orders Only External Location [address] [place] [address] Provider, External Social History Tobacco Use Types Packs/Day Years Used Date Smoking Tobacco: Never Assessed Sex and Gender Information Value Date Recorded Sex Assigned at Male 11/22/2023 10:11 AM EDT Legal Sex Male 7:26 PM EDT Gender Identity Male 11/22/2023 10:11 AM EDT Sexual Orientation Straight 11/22/2023 10 :11 AM EDT documented as of this encounter Plan of Treatment Not on file documented as of this encounter Procedures Procedure Name Priority Date/Time Associated Diagnosis Comments CT OUTSIDE IMAGES 07/27/2015 9:25 AM EST documented in this encounter Results * CT OUTSIDE IMAGES (07/27/2015 9:25 AM EST) Anatomical Region Laterality Modality Computed Tomogra phy 07/27/2015 9:25 AM EST us External Provider IMG CT PROCEDURES Final Result documented in this encounter Visit Diagnoses Not on filedocumented in this encounter Care Teams First Grade Teacher Relationship Specialty Start Date End Date Braden Louis MD [address] [place] [address] PCP - General 11/17/20 documented as of this encounter
--- OUTSIDE RECORDS SUMMARY | 2024-12-10 15:19 | XMS_ITS | Clinical Summary ---
Author Organization Healthcare Address [address] [place] [address] Care Team Providers Care Cigar Inspector Name Role Phone Braden Louis MD Primary Care Provider [phone] Allergies Active Allergy Reactions Criticality Noted Date Comments Lisinopril Cough High 06/02/2023 Penicillins Other - please docum ent in the comment field,Shortness of breath High 08/14/2015 Ticagrelor Shortness of breath High 06/02/2023 Medications atorvastatin (Lipitor) 40 MG tablet Take 1 tablet by mouth daily. 09/10/2024 Active empagliflozin (Jardiance) 25 MG Take 1 tablet by mouth daily. 01/09/2023 Active losartan (Cozaar) 100 MG tablet Take 1 tablet by mouth daily. 09/10/2024 Active metoprolol succinate XL (Toprol-XL) 25 MG 24 hr tablet Take 1 tablet by mouth daily. 09/10/2024 Active Active Problems Problem Noted Date Diagnosed Date Stable angina 10/25/2024 Acute idiopathic thrombocytopenic purpura 2024 Closed fracture of right distal fibula Colitis 10/25/2024 Community acquired pneumonia 10/25/2024 CAD (coronary artery disease) 10/25/2024 Dyspnea 10/25/2024 History of coronary artery stent placement 10/25 HLD (hyperlipidemia) 10/25/2024 HTN (hypertension) 10/25/2024 Hyperkalemia 10/25/2024 Neuropathy associated with cancer 10/25/2024 STEMI (ST elevation myocardial infarction) 10/25 Tubular adenoma of colon 10/25/2024 Weakness 10/25/2024 Mediastinal adenopathy 08/17/2015 Internal hemorrhoids 04/25/2011 Encounters Date Type Department Care Team Description 11/01/2024 11:30 AM EDT Office Visit [facility] [address] [place] [address] Kenny Vance MD Primary osteoarthritis of left hip (Primary Dx) 11/01/2024 Travel 10/27/2024 1:15 PM EDT - 10/27/2024 11:59 PM EDT Hospital Encounter [facility] [address] [place] [address] Left hip pain Discharge Disposition: Home or Self Care 10/27/2024 Travel 10/25/2024 1:00 PM EDT Office Visit [facility] [address] [place] [address] Kenny Vance MD Left hip pain 10/25/2024 Telephone [facility] [address] [place] [address] Kenny Vance MD 10/25/2024 Travel 10/20/2024 Travel 10/05/2024 Orders Only External Location [address] [place] [id number] Provider, External from Last 3 Months Family History Medical History Relation Name Comments Melanoma Father FH: melanoma Prostate cancer Father FH: prostate cancer Stomach cancer Father FH: gastric c ancer Ovarian cancer Mother FH: ovarian c ancer Ovarian cancer Other FH: ovarian c ancer Pancreatic cancer Sister Relation Name Status Comments Father Mother Other Sister Social History Tobacco Use Types Packs/Day Years Used Date Smoking Tobacco: Never Smokeless Tobacco: Former Chew Tobacco Cessation:Counseling Given: Not Answered Sex and Gender Information Value Date Recorded Sex Assigned at Male 11/22/2023 10:11 AM EDT Legal Sex Male 7:26 PM EDT Gender Identity Male 11/22/2023 10:11 AM EDT Sexual Orientation Straight 11/22/2023 10 :11 AM EDT Last Filed Vital Signs Vital Sign Reading Time Taken Comments Blood Pressure 128/83 11/01/2024 11:16 AM EDT Pulse 62 11/01/2024 11:16 AM EDT Temperature 36.5 C (97.7 F) 11/01/2024 11:16 AM EDT Respiratory Rate 15 10/25/2024 12:04 PM EDT Oxygen Saturation 95% 11/01/2024 11:16 AM EDT Inhaled Oxygen Concentration - - Weight 107 kg (236 lb 12.4 oz) 11/01/2024 11:16 AM EDT Height 180.3 cm (5' 11 ) 11/01/2024 11:16 AM EDT Body Mass Index 33.02 11/01/2024 11:16 AM EDT Plan of Treatment Health Maintenance Due Date Last Done Comments [facility]-Depression Screening 1955 [facility]-Hepatitis C Screening 1955 [facility]-Medicare Annual Wellness (AWV) 1955 [facility]-Infant/Child/Adol SDOH Screenings 1953 [facility]- SDOH Screenings 1971 [facility]-Adult SDOH Screenings 1971 CT Colonography 1998 Colonoscopy 1998 FIT-DNA 1998 FIT 1998 FOBT 1998 Sigmoidoscopy 1998 [facility]-Colorectal Cancer Screening 1998 [id number] Vaccine (2 - Tanya risk series) 10/12/2020 09/14/2020 [facility]-DTaP,Tdap,and Td Vaccines (2 - Td or Tdap) 03/01/2034 03/01/2024 [facility]-Pneumococcal Vaccine: 50+ Years Completed 05/04/2020, 04/20/2019 [facility]-Zoster Vaccines Completed 04/30/2023, 2021, 05/27/2016 [facility]-RSV Vaccine: 60+ Years or Completed 05/13/2023 [facility]-Influenza Vaccine Completed 05/11/2024 , 04/30/2023, 04/18/2021, Additional history exists [facility]-Obesity Intervention Completed 11/01/2024, 10/06 HPV Vaccines Aged Out No longer eligi ble based on patient's age to complete this topic [facility]-HIB Vaccines Aged Out No longer e ligible based on patient's age to complete this topic [facility]-Hepatitis A Vaccines Aged Out No longer eligible based on patient's age to complete this topic [facility]-IPV Vaccines Aged Out No longer e ligible based on patient's age to complete this topic [facility]-Rotavirus Vaccines Aged Out No lo nger eligible based on patient's age to complete this topic Procedures Procedure Name Priority Date/Time Associated Diagnosis Comments CT BONY PELVIS Routine 10/27/2024 1:27 PM EDT Left hip pain MR OUTSIDE IMAGES 10/05/2024 7:5 9 AM EDT from Last 3 Months Results * CT Bony Pelvis (10/27/2024 1:27 [...] noncontrast MRI, nuclear medicine bone scan or [id number] MRI could be considered for improved characterization. [...] by Edwin Baig on 10/27/2024 2:02 PM us Kenny Vance MD IMG CT PROCEDURES Final R esult * MR transfer of outside films (10/05/2024 7:59 AM EDT) Anatomical Region Laterality Modality Magnetic Resonan ce 10/05/2024 7:59 AM EDT us External Provider IMG MRI PROCEDURES Final Resul t from Last 3 Months Insurance MEDICARE MEDICARE [facility] Care Teams Cigar Inspector Relationship Specialty Start Date End Date Braden Louis MD [address] [place] [address] [facility] - General 11/17/20
--- OUTSIDE RECORDS SUMMARY | 2024-12-10 15:20 | XMS_ITS | Encounter Summary ---
Author Organization Healthcare Address [address] [id number] Care Team Providers Care Instrumentation Designer Name Role Phone Braden Louis MD Primary Care Provider Encounter Details Date Type Department Care Team (Late st Contact Info) Description 10/25/2024 Telephone [facility] [address] [place] [address] Kenny Vance MD [address] [facility] [address] [place] [address] Social History Tobacco Use Types Packs/Day Years Used Date Smoking Tobacco: Never Smokeless Tobacco: Former Chew Sex and Gender Information Value Date Recorded Sex Assigned at Male 11/22/2023 10:11 AM EDT Legal Sex Male 7:26 PM EDT Gender Identity Male 11/22/2023 10:11 AM EDT Sexual Orientation Straight 11/22/2023 10 :11 AM EDT documented as of this encounter Miscellaneous Notes * Telephone Encounter - [place] - 10/25/2024 1:03 PM EDT 10/25 Called patient (2x) & No answer/ left VM & call back # CT Scan is scheduled for 10/27 Provider appt has been r/s for 11/01 documented in this encounter Plan of Treatment [...] documented as of this encounter Care Teams Instrumentation Designer Relationship Specialty Start Date End Date Braden Louis MD [address] [place] [address] PCP - General 11/17/20 documented as of this encounter
--- OUTSIDE RECORDS SUMMARY | 2024-12-10 15:20 | XMS_ITS | Encounter Summary ---
Author Organization Healthcare Address [address] [place] [address] Care Team Providers Care Fire Patroller Name Role Phone Braden Louis MD Primary Care Provider Encounter Details Date Type Department Care Team (Late st Contact Info) Description 10/05/2024 Orders Only External Location [address] [place] [address] Provider, External Social History Tobacco Use Types [...] Procedure Name Priority Date/Time Associated Diagnosis Comments MR OUTSIDE IMAGES 10/05/2024 7:59 AM EDT documented in this encounter Results * MR transfer of outside films (10/05/2024 7:59 AM EDT) Anatomical Region Laterality Modality Magnetic Resonan ce 10/05/2024 7:59 AM EDT us External Provider IMG MRI PROCEDURES Final Resul t documented in this encounter Visit Diagnoses Not on filedocumented in this encounter Care Teams Fire Patroller Relationship Specialty Start Date End Date Braden Louis MD [address] [place] [address] PCP - General 11/17/20 documented as of this encounter
--- OUTSIDE RECORDS SUMMARY | 2024-12-10 15:20 | XMS_ITS | Encounter Summary ---
Author Organization Healthcare Address [address] [place] [address] Care Team Providers Care Roustabout Hand Name Role Phone Braden Louis MD Primary Care Provider [phone] Encounter Details Date Type Department Care Team (Latest Contact Info) Description 10/25/2024 Travel Social History Tobacco Use Types Packs/Day [...] documented as of this encounter Care Teams Roustabout Hand Relationship Specialty Start Date End Date Braden Louis MD [address] [place] [address] PCP - General 11/17/20 documented as of this encounter
--- OUTSIDE RECORDS SUMMARY | 2024-12-10 15:20 | XMS_ITS | Encounter Summary ---
Author Organization Healthcare Address [address] [place] [address] Care Team Providers Care Core Feeder Name Role Phone Braden Louis MD Primary Care Provider [phone] Encounter Details Date Type Department Care Team (Latest Contact Info) Description 11/01/2024 Travel Social History Tobacco Use Types Packs/Day [...] documented as of this encounter Care Teams Core Feeder Relationship Specialty Start Date End Date Braden Louis MD [address] [place] [address] PCP - General 11/17/20 documented as of this encounter
--- OUTSIDE RECORDS SUMMARY | 2024-12-10 15:20 | XMS_ITS | Encounter Summary ---
Author Organization Healthcare Address [address] [place] [address] Care Team Providers Care Senior Commissary Agent Name Role Phone Bradne Louis MD Primary Care Provider [phone] Encounter Details Date Type Department Care Team (Late st Contact Info) Description 07/27/2015 Orders Only External Location [address] [place] [address] Provider, External Social History Tobacco Use Types [...] on filedocumented in this encounter Care Teams Senior Commissary Agent Relationship Specialty Start Date End Date Braden Louis MD [address] [place] [address] PCP - General 11/17/20 documented as of this encounter
--- OUTSIDE RECORDS SUMMARY | 2024-12-10 15:20 | XMS_ITS | Encounter Summary ---
Author Organization Healthcare Address [address] [place] [address] Care Team Providers Care Graduate Recruiter Name Role Phone Braden Louis MD Primary Care Provider Encounter Details Date Type Department Care Team (Late st Contact Info) Description 06/15/2024 Orders Only External Location [address] [place] [address] Robson Evans DO [address] [place] [address] Social History Tobacco Use Types Packs/Day Years [...] Date/Time Associated Diagnosis Comments MR OUTSIDE IMAGES 06/15/2024 5:27 PM EST documented in this encounter Results * MR transfer of outside films (06/15/2024 5:27 PM EST) Anatomical Region Laterality Modality Magnetic Resonan ce 06/15/2024 5:27 PM EST us Robson Evans DO IMG MRI PROCEDURES Final Result documented in this encounter Visit Diagnoses Not on filedocumented in this encounter Care Teams Graduate Recruiter Relationship Specialty Start Date End Date Braden Louis MD [address] [place] [address] PCP - General 11/17/20 documented as of this encounter
--- OUTSIDE RECORDS SUMMARY | 2024-12-10 15:20 | XMS_ITS | Encounter Summary ---
Author Organization Healthcare Address [address] [place] [address] Care Team Providers Care X Ray Service Technician Name Role Phone Braden Louis MD Primary Care Provider [phone] Encounter Details Date Type Department Care Team (Late st Contact Info) Description 07/12/2024 Orders Only External Location [address] [place] [address] Provider, External Social History Tobacco Use Types [...] Date/Time Associated Diagnosis Comments MR OUTSIDE IMAGES 07/12/2024 8:10 AM EST documented in this encounter Results * MR transfer of outside films (07/12/2024 8:10 AM EST) Anatomical Region Laterality Modality Magnetic Resonan ce 07/12/2024 8:10 AM EST us External Provider IMG MRI PROCEDURES Final Resul t documented in this encounter Visit Diagnoses Not on filedocumented in this encounter Care Teams X Ray Service Technician Relationship Specialty Start Date End Date Braden Louis MD [address] [place] [address] PCP - General 11/17/20 documented as of this encounter
--- OUTSIDE RECORDS SUMMARY | 2024-12-10 15:20 | XMS_ITS | Encounter Summary ---
Author Organization Healthcare Address [address] [place] [address] Care Team Providers Care Knockdown Worker Name Role Phone Braden Louis MD Primary Care Provider [phone] Encounter Details Date Type Department Care Team (Latest Contact Info) Description 10/20/2024 Travel Social History Tobacco Use Types Packs/Day [...] on filedocumented in this encounter Care Teams Knockdown Worker Relationship Specialty Start Date End Date Braden Louis MD [address] [place] [address] PCP - General 11/17/20 documented as of this encounter
--- OUTSIDE RECORDS SUMMARY | 2024-12-10 15:20 | XMS_ITS | Encounter Summary ---
Author Organization Healthcare Address [address] [place] [address] Care Team Providers Care Microarray Specialist Name Role Phone Braden Louis MD Primary Care Provider Encounter Details Date Type Department Care Team (Late st Contact Info) Description 05/25/2024 Orders Only External Location [address] [place] [address] Robson Evans DO [address] [place] [address] Social History Tobacco Use Types Packs/Day Years [...] Procedure Name Priority Date/Time Associated Diagnosis Comments XR OUTSIDE IMAGES 05/25/2024 11:14 AM EST documented in this encounter Results * XR OUTSIDE IMAGES (05/25/2024 11:14 AM EST) Anatomical Region Laterality Modality Radiographic Nicki ging 05/25/2024 11:1 4 AM EST us Robson Evans DO IMG XR PROCEDURES Final Result documented in this encounter Visit Diagnoses Not on filedocumented in this encounter Care Teams Microarray Specialist Relationship Specialty Start Date End Date Braden Louis MD [address] [place] [address] PCP - General 11/17/20 documented as of this encounter
--- NOTE | 2024-12-10 15:21 | XR_ITS ---
FINAL REPORT CLINICAL HISTORY: CELLULITIS OF RT TOE COMPARISON: None FINDINGS: AP, oblique and lateral views of the right foot were obtained. There is no acute fracture or dislocation. There is subtle irregularity of the distal tuft of the great toe, otherwise no acute bony abnormalities are noted. There is mild multijoint degenerative change present. Soft tissues are unremarkable. IMPRESSION: Subtle irregularity of the distal tuft of the great toe, correlate with site of cellulitis. Reviewed, Interpreted and Dictated by Patience Garner MD Transcribed by Fabiola Way Authenticated and [facility]
[2024-12-10 15:42] LABS: Basophils # 0.1 K/mm3 (0-0.2); Basophils % 0.7 % (0.1-2.0); Eosinophils # 0.2 Kmm3 (0.0-0.4); Hematocrit 49.1 % (42.0-52.0); Hemoglobin 16.5 g/dL (14.1-18.0); Immature Granulocytes # 0.01 10^3uL; Immature Granulocytes % 0.1 %; Lymphocytes # 2.2 K/mm3 (0.7-4.5); Lymphocytes % 29.2 % (10-50); Mean Corpuscular HGB Conc 33.6 g/dL (31.8-35.4); Mean Corpuscular Hemoglobin 29.6 pg (27.0-31.2); Mean Corpuscular Volume 88.2 fl (80-94); Mean Platelet Volume 10.2 fl (7.4-10.4); Monocytes # 0.8 K/mm3 (0.1-1.0); Monocytes % 11.1 % (1.7-9.3); Neutrophils # 4.2 K/mm3 (1.8-7.8); Neutrophils % 55.9 % (37.0-80.0); Nucleated Red Blood Cells # 0 10^3/uL; Nucleated Red Blood Cells % 0 %; Platelet Count 187 K/mm3 (142-424); Red Blood Count 5.57 M/mm3 (4.60-6.20); Red Cell Distribution Width 13.7 % (11.5-17.5); Red Cell Distribution Width-SD 44.2 fL; White Blood Count 7.4 K/mm3 (4.8-10.8)
[2024-12-10 16:11] LABS: Erythrocyte Sedimentation Rate 1 mm/hr (0-20)
[2024-12-10 16:12] LABS: Alanine Aminotransferase 22 U/L (12-78); Albumin Level 4.3 g/dl (3.5-5.0); Albumin/Globulin Ratio 1.5 (1.1-1.8); Alkaline Phosphatase 77 U/L (38-126); Anion Gap 8.2 mEq/L (5-15); Aspartate Amino Transferase 39 U/L (17-59); Bilirubin,Total 0.6 mg/dl (0.2-1.3); Blood Urea Nitrogen 26 mg/dl (9-20); Calcium 9.3 mg/dl (8.4-10.2); Carbon Dioxide 25 mmol/L (22.0-30.0); Chloride 109 mmol/L (98-107); Estimated Glomerular Filt Rate 95 ml/min (>60); GFR (African American) 115 ML/MIN (>60); Globulin 2.9 g/dL (1.3-3.2); Glucose 94 mg/dl (74-100); Potassium 4.2 mmoL/L (3.5-5.1); Sodium 138 mmol/L (136-145); Total Protein,Serum 7.2 g/dl (6.3-8.2)
== END 2024-12-10 23:59 | disposition home or self-care (01) ==
LOC: RAD 15:18
PROVIDERS: PCP Internal Medicine Adolescent Medicine; Visit Provider Nurse Practitioner Family
DX: L03.031 Cellulitis of right toe (principal); R93.6 Abnormal findings on diagnostic imaging of limbs
CPT/HCPCS: 36415; 73630; 80053; 85025; 85651

== ENCOUNTER 2025-05-16 12:34 | Outpatient (CLI) | payer MEDICARE, BC, SELFPAY ==
[2025-05-16 14:42] LABS: Adenovirus F 40/41, stool Not Detected (NotDetected); Cyclospora Cayetanesis Not Detected (NotDetected); Plesimonas Shigalloides, PCR Not Detected (NotDetected); Salmonella, PCR Not Detected (NotDetected); Shiga-like toxin E coli Not Detected (NotDetected); Shigella Enterovasive E coli Not Detected (NotDetected); Vibrio, PCR Not Detected (NotDetected); Yersinia Entercolitica, PCR Not Detected (NotDetected)
[2025-05-17 11:19] LABS: Clostridium Difficile A/B, PCR Detected (NotDetected)
== END 2025-05-16 23:59 | disposition home or self-care (01) ==
LOC: LAB 12:35
PROVIDERS: PCP Internal Medicine Adolescent Medicine; Visit Provider Internal Medicine Adolescent Medicine
DX: A09 Infectious gastroenteritis and colitis, unspecified (principal)
CPT/HCPCS: 87507